=== PATIENT | male | born 1950 | race Hispanic/Latino ===

== ENCOUNTER 2017-02-11 02:12 | Inpatient (IN) | payer MEDICARE, OTHER ==
[2017-02-11 02:16] VITALS: BMI 32.5
--- NOTE | 2017-02-11 02:23 | ED PDOC ---
Arrival/HPI - General Chief Complaint: Seizure Time Seen by Provider: 02/11/17 02:17 Historian: Patient, EMS - History of Present Illness Narrative History of Present Illness (Text): 02/11/17 02:22 Dayton Henning is a 66 year old male, whose past medical history includes seizure disorder, PTSD, and depression, who presents to the Emergency department status post seizure. As per EMS, patient had 2 tonic-clonic seizures prior to arrival, 1 at home and 1 en route to the hospital. Patient was given 10 mg of Versed in the field. Limited HPI and ROS due to patient's somnolence. Time/Duration: Other (tonight) Symptom Onset: Sudden Activities at Onset: Rest, Light Context: Home Past Medical History - Provider Review Nursing Documentation Reviewed: Yes - Infectious Disease Hx of Infectious Diseases: None - Tetanus Immunization Tetanus Immunization: Unknown - Past Medical History Past Medical History: No Previous - Cardiac Hx Cardiac Disorders: No Hx Hypertension: No - Pulmonary Hx Respiratory Disorders: No Hx Chronic Obstructive Pulmonary Disease (COPD): Yes Hx Tuberculosis: No - Neurological Hx Neurological Disorder: Yes (neuropathy) HX Cerebrovascular Accident: No Hx Seizures: Yes (30 yrs ago) - HEENT Hx HEENT Disorder: No - Renal Hx Renal Disorder: No - Endocrine/Metabolic Hx Endocrine Disorders: No - Hematological/Oncological Hx Cancer: No Hx Hepatitis C: Yes - Integumentary Hx Dermatological Disorder: No Other/Comment: red raised rash ble - Musculoskeletal/Rheumatological Hx Falls: No - Gastrointestinal Hx Gastrointestinal Disorders: No - Genitourinary/Gynecological Hx Genitourinary Disorders: No Hx Sexually Transmitted Diseases: No - Psychiatric Hx Anxiety: Yes Hx Depression: Yes Hx Post Traumatic Stress Disorder: Yes Hx Substance Use: Yes - Past Surgical History Past Surgical History: No Previous - Surgical History Other/Comment: back surgery - Anesthesia Hx Anesthesia: No Hx Anesthesia Reactions: No Hx Malignant Hyperthermia: No - Suicidal Assessment Feels Threatened In Home Enviroment: No Family/Social History - Physician Review Nursing Documentation Reviewed: Yes Family/Social History: No Known Family HX Smoking Status: Former Smoker Hx Alcohol Use: No Hx Substance Use: Yes Allergies/Home Meds Allergies/Adverse Reactions: Allergies cat dander Allergy (Verified 02/11/17 02:16) ANAPHYLAXIS Home Medications: Home Meds Medication Instructions Recorded Confirmed Diazepam [Valium] 10 mg PO QID 02/11/17 02/11/17 LORazepam [Ativan] 2 mg PO QID 02/11/17 02/11/17 Review of Systems - Review of Systems Systems not reviewed;Unavailable: Altered Mental Status Neurological: Seizure Physical Exam Vital Signs Reviewed: Yes Vital Signs Temp Pulse Resp BP Pulse Ox 02/11/17 06:24 97.7 F 86 20 156/78 H 02/11/17 06:00 90 13 124/85 95 02/11/17 05:45 95 H 18 130/79 95 02/11/17 05:25 90 13 129/80 96 02/11/17 05:05 95 H 18 151/78 H 95 02/11/17 04:25 97 H 18 124/77 97 02/11/17 03:10 97 H 12 122/70 98 02/11/17 02:20 97.6 F 118 H 28 H 135/72 100 Temperature: Afebrile Blood Pressure: Normal Pulse: Regular Respiratory Rate: Normal Appearance: Positive for: Well-Appearing, Non-Toxic, Comfortable Pain Distress: None Mental Status: Positive for: other (Somnolent but arousable) - Systems Exam Head: Present: Atraumatic, Normocephalic Pupils: Present: PERRL Extroacular Muscles: Present: EOMI Conjunctiva: Present: Normal Mouth: Present: Moist Mucous Membranes Neck: Present: Normal Range of Motion Respiratory/Chest: Present: Clear to Auscultation, Good Air Exchange. No: Respiratory Distress, Accessory Muscle Use Cardiovascular: Present: Regular Rate and Rhythm, Normal S1, S2. No: Murmurs Abdomen: Present: Normal Bowel Sounds. No: Tenderness, Distention, Peritoneal Signs Back: Present: Normal Inspection Upper Extremity: Present: Normal Inspection. No: Cyanosis, Edema Lower Extremity: Present: Normal Inspection. No: Edema Neurological: Present: GCS=15, CN II-XII Intact Skin: Present: Warm, Dry, Normal Color. No: Rashes Psychiatric: Present: Other (Somnolent but arousable) Medical Decision Making ED Course and Treatment: 02/11/17 02:23 Impression: 66 year old male brought in by EMS s/p 2 seizures at home prior to arrival. Plan: -- CT Head w/o contrast -- EKG -- CXR -- Labs, cardiac enzymes, alcohol level -- Reassess and disposition Prior Visits: Notes and results from previous visits were reviewed. Progress Notes: Reviewed EKG, sinus tachycardia at [address] bpm. Non-specific ST/T wave changes. 02/11/17 04:07 Reviewed radiology, Chest X-ray shows no active disease. CT Head shows: - No acute findings seen within the brain. - See above for remaining findings. 02/11/17 05:20 Reviewed labs, WBC:29, lactate: 3.3. 02/11/17 05:24 Case discussed with medical esthetician microeconomics professor, who is aware and agrees with plan. Case discussed with Dr. Tabor, who is aware and agrees with plan. Accepts pt in to hospitalist service. Pt will be admitted to Telemetry for seizure disorder and sepsis. - Lab Interpretations Lab Results: 02/11/17 02:57 02/11/17 03:28 Lab Results 02/11/17 05:08: pO2 69 H, VBG pH 7.35, VBG pCO2 41.0, VBG HCO3 22.6, VBG Total CO2 23.9, VBG O2 Sat (Calc) 94.3 H, VBG Base Excess -2.9 L, VBG Potassium 3.9, Sodium 139.0, Chloride 110.0 H, Glucose 186 H, Lactate 3.3 H, FiO2 21.0, Venous Blood Potassium 3.9 02/11/17 04:03: Serum Osmolality 311 H, Total Creatine Kinase 151 02/11/17 03:28: Sodium 142, Chloride 104, Potassium 4.4, Carbon Dioxide 16 L, Anion Gap 26 H, BUN 14, Creatinine 1.2, Est GFR ( Amer) > 60, Est GFR ( Non-Af Amer) > 60, Random Glucose 215 H, Calcium 10.0, Total Bilirubin 0.6, AST 42, ALT 25, Alkaline Phosphatase 58, Lactate Dehydrogenase 808 H, Total Creatine Kinase 136, Troponin I < 0.01, Total Protein 7.9, Albumin 4.3, Globulin 3.6, Albumin/Globulin Ratio 1.2 02/11/17 02:57: WBC 29.4 H* D, RBC 5.34, Hgb 17.4, Hct 52.9 H, MCV 99.1, MCH 32.6, MCHC 32.9, RDW 13.3, Plt Count 278, MPV 12.0 H, Neutrophils % (Manual) 51 , Lymphocytes % (Manual) 36 H, Monocytes % (Manual) 12 H, Eosinophils % (Manual ) 1, Platelet Evaluation Normal, PT 11.7, INR 1.08, APTT 26.7 I have reviewed the lab results: Yes - RAD Interpretation Narrative RAD Interpretations (Text): , Chest X-ray shows no active disease. CT Head shows: LIMITATIONS: Exam is somewhat limited by mild streak/motion artifact. BRAIN: Diffuse, age-related cortical atrophy and ventriculomegaly. No significant acute abnormality identified. No acute hemorrhage seen within the brain. No acute extra-axial fluid collections visualized. No evidence of significant mass effect within the brain. VENTRICLES: See above. BONES/JOINTS: No acute fractures or other acute bony abnormality noted. SOFT TISSUES: No acute abnormality of the visualized soft tissues is seen. VASCULATURE: Atherosclerotic calcification. SINUSES: Visualized paranasal sinuses appear clear. MASTOID AIR CELLS: Mastoid air cells appear clear. IMPRESSION: - No acute findings seen within the brain. - See above for remaining findings. Radiology Orders: 02/11/17 02:52 HEAD W/O CONTRAST [CT] Stat 02/11/17 02:53 CHEST PORTABLE [RAD] Stat Manager Of Corporate: ED Physician, Radiologist - EKG Interpretation Interpreted by ED Physician: Yes Type: 12 lead EKG - Medication Orders Current Medication Orders: Enoxaparin Sodium (Lovenox) 40 mg SC DAILY JOSELYN PRN Reason: Protocol Last Admin: 02/11/17 09:46 Dose: 40 MG Protocol for PTT Monitoring Document 02/11/17 09:46 RT (Rec: 02/11/17 09:46 RT [id number]) Protocol Protocol for PTT Monitoring Following clinical pathway protocol (regime/therapy) Subcutaneous Administrations Document 02/11/17 09:46 RT (Rec: 02/11/17 09:46 RT [id number]) Charges for Administration # of Subcutaneous Administrations 1 Sodium Chloride (Sodium Chloride 0.9%) 1,000 mls @ 125 mls/hr IV .Q8H JOSELYN Last Admin: 02/11/17 17:24 Dose: Fosphenytoin Sodium 100 mg/ (Dextrose) 52 mls @ 200 mls/hr IV Q8 JOSELYN Last Admin: 02/11/17 14:40 Dose: 200 MLS/HR eMAR Start Stop Document 02/11/17 14:40 RT (Rec: 02/11/17 17:23 RT [id number]) Intravenous Solution Start Date 02/11/17 Start Time 14:40 End Date 02/11/17 End time 15:35 Total Infusion Time 55 Azithromycin (Zithromax 500mg In Ns) 250 mls @ 167 mls/hr IVPB DAILY JOSELYN PRN Reason: Protocol Last Admin: 02/11/17 13:12 Dose: 167 MLS/HR eMAR Start Stop Document 02/11/17 13:12 RT (Rec: 02/11/17 13:13 RT [id number]) Intravenous Solution Start Date 02/11/17 Start Time 13:13 End Date 02/11/17 End time 14:30 Total Infusion Time 77 Ceftriaxone Sodium (Rocephin 1 Gram Ivpb) 100 mls @ 100 mls/hr IVPB DAILY JOSELYN PRN Reason: Protocol Last Admin: 02/11/17 13:45 Dose: Lorazepam (Ativan) 1 mg IVP Q4 PRN; Protocol PRN Reason: Seizure activity Naproxen (Anaprox Ds) 550 mg PO Q12 PRN PRN Reason: Pain, moderate (4-7) Last Admin: 02/11/17 13:13 Dose: 550 MG Pantoprazole Sodium (Protonix Inj) 40 mg IVP DAILY [facility] Last Admin: 02/11/17 09:45 Dose: 40 MG IVP Administration Document 02/11/17 09:45 RT (Rec: 02/11/17 09:46 RT [id number]) Charges for Administration # of IVP Administrations 1 Discontinued Medications Ceftriaxone Sodium (Rocephin 2 Gm Ivpb) 100 mls @ 100 mls/hr IVPB STAT STA PRN Reason: Protocol Stop: 02/11/17 06:33 Last Admin: 02/11/17 08:07 Dose: 100 MLS/HR eMAR Start Stop Document 02/11/17 08:07 RT (Rec: 02/11/17 08:07 RT [id number]) Intravenous Solution Start Date 02/11/17 Start Time 08:07 End Date 02/11/17 End time 09:00 Total Infusion Time 53 Vancomycin HCl (Vancomycin 1gm) 250 mls @ 167 mls/hr IVPB STAT STA PRN Reason: Protocol Stop: 02/11/17 07:04 Last Admin: 02/11/17 06:25 Dose: 167 MLS/HR eMAR Start Stop Document 02/11/17 06:25 SB (Rec: 02/11/17 06:25 SB [id number]) Intravenous Solution Start Date 02/11/17 Start Time 06:25 End Date 02/11/17 Fosphenytoin Sodium 1,000 mg/ (Sodium Chloride) 70 mls @ 100 mls/hr IV STAT STA Stop: 02/11/17 07:08 Last Admin: 02/11/17 09:45 Dose: Sodium Chloride (Sodium Chloride 0.9%) 100 mls @ 125 mls/hr IV .Q48M JOSELYN Naproxen (Anaprox Ds) 550 mg PO Q6 PRN PRN Reason: Pain, moderate (4-7) - Scribe Statement The provider has reviewed the documentation as recorded by the Johnna Ruvalcaba Provider Attestation: All medical record entries made by the Jeremiasibaurelio were at my direction and personally dictated by me. I have reviewed the chart and agree that the record accurately reflects my personal performance of the history, physical exam, medical decision making, and the department course for this patient. I have also personally directed, reviewed, and agree with the discharge instructions and disposition. Disposition/Present on Arrival - Present on Arrival Any Indicators Present on Arrival: No History of DVT/PE: No History of Uncontrolled Diabetes: No Urinary Catheter: No History of Decub. Ulcer: No History Surgical Site Infection Following: None - Disposition Have Diagnosis and Disposition been Completed?: Yes Diagnosis: Seizure disorder, Sepsis Disposition: HOSPITALIZED Disposition Time: 05:32 Patient Plan: Admission Patient Problems: Current Active Problems Problem Status Diagnosed Seizure disorder Acute Sepsis Acute Condition: STABLE
[2017-02-11 03:26] LABS: INR 1.08 (0.93-1.08); PARTIAL THROMBOPLASTIN TIME 26.7 Seconds (23.7-30.8)
[2017-02-11 03:59] LABS: HEMATOCRIT 52.9 % (42.0-52.0); MEAN CELL VOLUME 99.1 fL (80.0-105.0); MEAN CORPUSCULAR HEMOGLOBIN 32.6 pg (25.0-35.0); MEAN CORPUSCULAR HGB CONC 32.9 g/dl (31.0-37.0); PLATELET COUNT 278 10^3/uL (120.0-450.0); RED CELL DISTRIBUTION WIDTH 13.3 % (11.5-14.5)
--- NOTE | 2017-02-11 04:09 | CT ---
EXAM: CT Head Without Intravenous Contrast. CLINICAL HISTORY: 66 years old, male; Signs and symptoms; Syncope and collapse; Additional info: Seizure TECHNIQUE: Axial computed tomography images of the head/brain without intravenous contrast. This CT exam was performed using one or more of the following dose reduction techniques: automated exposure control, adjustment of the mA and/or kV according to patient size, and/or use of iterative reconstruction technique. EXAM DATE/TIME: 02/11/2017 2:52 AM COMPARISON: Prior head CT of 03/06/2016 FINDINGS: LIMITATIONS: Exam is somewhat limited by mild streak/motion artifact. BRAIN: Diffuse, age-related cortical atrophy and ventriculomegaly. No significant acute abnormality identified. No acute hemorrhage seen within the brain. No acute extra-axial fluid collections visualized. No evidence of significant mass effect within the brain. VENTRICLES: See above. BONES/JOINTS: No acute fractures or other acute bony abnormality noted. SOFT TISSUES: No acute abnormality of the visualized soft tissues is seen. VASCULATURE: Atherosclerotic calcification. SINUSES: Visualized paranasal sinuses appear clear. MASTOID AIR CELLS: Mastoid air cells appear clear. IMPRESSION: - No acute findings seen within the brain. - See above for remaining findings.
[2017-02-11 04:37] LABS: ALB/GLOB RATIO 1.2 (1.1-1.8); ALKALINE PHOSPHATASE 58 U/L (38-133); ALT/SGPT 25 U/L (7-56); AST/SGOT 42 U/L (15-59); BILIRUBIN,TOTAL 0.6 mg/dL (0.2-1.3); BLOOD UREA NITROGEN 14 mg/dL (7-21); CARBON DIOXIDE 16 mmol/L (21-33); CHLORIDE 104 mmol/L (95-110); GFR AFRICAN-AMERICAN > 60; GLUCOSE,RANDOM 215 mg/dL (70-110); POTASSIUM 4.4 mmol/L (3.6-5.0); SODIUM 142 mmol/L (132-148); TOTAL PROTEIN 7.9 g/dL (5.8-8.3)
[2017-02-11 05:09] LABS: TROPONIN I < 0.01 ng/mL
[2017-02-11 05:14] LABS: VENOUS BLOOD GAS BASE EXCESS -2.9 mmol/L (0.0-2.0); VENOUS BLOOD PH 7.35 (7.32-7.43)
[2017-02-11 05:14] LABS: EOSINOPHIL 1 % (0.0-3.0); NEUTROPHIL 51 % (50.0-70.0); PLATELET ESTIMATE NORMAL (NORMAL)
[2017-02-11] MEDS ORDERED: Vancomycin 1gm in NS 250ml 250 ML IVPB STA (05:35)
--- NOTE | 2017-02-11 05:47 | CP.PCM.HP ---
<NohemiDariela - Last Filed: 02/11/17 07:04> History of Present Illness - History of Present Illness History of Present Illness: PGY-[address] Steve Tabor H&P 66 year old male, PMHx Hep C, seizure disorder, PTSD, and bipolar, was brought in by EMS status post seizure. As per EMS, patient had 2 tonic-clonic seizures prior to arrival, 1 at home and 1 en route to the hospital. Patient was given 10 mg of Versed in the field. In the ED: Limited HPI and ROS due to patient's somnolence. VS 118. RR 28. 135/ 72 Temp normal Leukocytosis at 29.4. Lactate 3.3. (+) anion gap - EKG, sinus tachycardia at [address] bpm[address] Non-specific ST/T wave changes. - CT Head shows: No acute findings seen within the brain. Diffuse, age-related cortical atrophy and ventriculomegaly PMH: COPD Neuropathy Hep C Skin rash seizure disorder (Prior seizure 30 years ago, not on meds) Substance abuse PTSD, psychosis, bipolar disorder/schizoaffective Hx AMA, Hx non-compliance Hx (+) Aspergiluus fumigatus Ab (Aug 2015) Hx lung Abscess, cavitary lesion lung PSH: Back surgery FH: denies SH: Former tobacco; Denies alcohol. (+) illicit drug use All: cat dander - anaphlaxis Med: Diazepam [Valium] 10 mg PO QID LORazepam [Ativan] 2 mg PO QID PMD = ?? Present on Admission - Present on Admission Any Indicators Present on Admission: No Past Patient History - Infectious Disease Hx of Infectious Diseases: None - Tetanus Immunizations Tetanus Immunization: Unknown - Past Social History Smoking Status: Former Smoker - CARDIAC Hx Cardiac Disorders: No Hx Hypertension: No - PULMONARY Hx Respiratory Disorders: No Hx Chronic Obstructive Pulmonary Disease (COPD): Yes Hx Tuberculosis: No - NEUROLOGICAL Hx Neurological Disorder: Yes (neuropathy) HX Cerebrovascular Accident: No Hx Seizures: Yes (30 yrs ago) - HEENT Hx HEENT Problems: No - RENAL Hx Chronic Kidney Disease: No - ENDOCRINE/METABOLIC Hx Endocrine Disorders: No - HEMATOLOGICAL/ONCOLOGICAL Hx Cancer: No Hx Hepatitis C: Yes - INTEGUMENTARY Hx Dermatological Problems: No Other/Comment: red raised rash ble - MUSCULOSKELETAL/RHEUMATOLOGICAL Hx Falls: No - GASTROINTESTINAL Hx Gastrointestinal Disorders: No - GENITOURINARY/GYNECOLOGICAL Hx Genitourinary Disorders: No Hx Sexually Transmitted Disorders: No - PSYCHIATRIC Hx Anxiety: Yes Hx Depression: Yes Hx Post Traumatic Stress Disorder: Yes Hx Substance Use: Yes - SURGICAL HISTORY Other/Comment: back surgery - ANESTHESIA Hx Anesthesia: No Hx Anesthesia Reactions: No Hx Malignant Hyperthermia: No Meds Allergies/Adverse Reactions: Allergies Allergy/AdvReac Type Severity Reaction Status Date / Time cat dander Allergy ANAPHYLAXIS Verified 02/11/17 02:16 Physical Exam - Constitutional Additional comments: Post-ictal. confused. easily awaken but minimally communicative - Head Exam Head Exam: ATRAUMATIC, NORMOCEPHALIC - Eye Exam Eye Exam: PERRL. absent: Scleral icterus - ENT Exam ENT Exam: Mucous Membranes Moist Additional comments: bit mercer on lower lip and L lateral tongue - Neck Exam Neck exam: Negative for: Meningismus Additional comments: no JVD - Respiratory Exam Respiratory Exam: Decreased Breath Sounds (all lung dangelo), Clear to Auscultation Bilateral. absent: Rales, Rhonchi, Wheezes - Cardiovascular Exam Cardiovascular Exam: REGULAR RHYTHM, +S1, +S2. absent: Systolic Murmur - GI/Abdominal Exam GI & Abdominal Exam: Normal Bowel Sounds, Soft. absent: Distended, Firm, Guarding, Rigid, Tenderness (no grimace) - Extremities Exam Extremities exam: Positive for: normal capillary refill, pedal pulses present. Negative for: pedal edema - Psychiatric Exam Psychiatric exam: Flat Affect - Skin Skin Exam: Dry, Warm Results - Vital Signs Recent Vital Signs: Last Vital Signs Temp 97.6 F 02/11/17 02:20 Pulse 118 H 02/11/17 02:20 Resp 28 H 02/11/17 02:20 BP 135/72 02/11/17 02:20 Pulse Ox 100 02/11/17 02:20 - Labs Result Diagrams: 02/11/17 02:57 02/11/17 03:28 Labs: Laboratory Results - last 24 hr 02/11/17 02/11/17 02/11/17 02:57 03:28 05:08 WBC 29.4 H* D RBC 5.34 Hgb 17.4 Hct 52.9 H MCV 99.1 MCH 32.6 MCHC 32.9 RDW 13.3 Plt Count 278 MPV 12.0 H Neutrophils % (Manual) 51 Lymphocytes % (Manual) 36 H Monocytes % (Manual) 12 H Eosinophils % (Manual) 1 Platelet Evaluation Normal PT 11.7 INR 1.08 APTT 26.7 pO2 69 H VBG pH 7.35 VBG pCO2 41.0 VBG HCO3 22.6 VBG Total CO2 23.9 VBG O2 Sat (Calc) 94.3 H VBG Base Excess -2.9 L VBG Potassium 3.9 Glucose 186 H Lactate 3.3 H FiO2 21.0 Sodium 142 139.0 Potassium 4.4 Chloride 104 110.0 H Carbon Dioxide 16 L Anion Gap 26 H BUN 14 Creatinine 1.2 Est GFR ( Amer) > 60 Est GFR (Non-Af Amer) > 60 Random Glucose 215 H Calcium 10.0 Total Bilirubin 0.6 AST 42 ALT 25 Alkaline Phosphatase 58 Lactate Dehydrogenase 808 H Total Creatine Kinase 136 Troponin I < 0.01 Total Protein 7.9 Albumin 4.3 Globulin 3.6 Albumin/Globulin Ratio 1.2 Venous Blood Potassium 3.9 Assessment & Plan - Assessment and Plan (Free Text) Plan: 66 year old male, PMHx Hep C, Aspergilus lung cavity, seizure disorder not on med, PTSD, and bipolar, was brought in by EMS status post seizure. Seizure, provoked vs unprovoked - Neural check, aspiration/fall precaution - neuro consult - NPO for now - Phosphenytoin q8 - Ativan for break through - pending serum alcohol, ammonia, drug screen Sepsis - 1 dose of vanco and ceftriaxone at ED - H 118, RR 28. WBC 29.4. Lactate 3.3. - ID consult High Anion Gap Metabolic Acidosis - MUDPILE workup - Serum Osm; Pending urine ketone; No UZMA; LFT ok - (+) lactic acid; (+) Sepsis Lactate dehydrogenase elevated - likely from muscle - r/o cardiac cause - trend enzymes - LFT/Renal wnl - pending CK - NS @ 125 Prophylasix - lovenox, protonix S/R/D/w Dr. Tabor - Date & Time Date: 02/11/17 Time: 06:57 <Lida Tabor - Last Filed: 02/11/17 20:39> Results - Vital Signs Recent Vital Signs: Last Vital Signs Temp 97.3 F L 02/11/17 18:00 Pulse 86 02/11/17 18:00 Resp 20 03/22/17 18:00 BP 120/64 02/11/17 18:00 Pulse Ox 95 02/11/17 06:00 - Labs Result Diagrams: 02/11/17 07:30 02/11/17 07:45 Labs: Laboratory Results - last 24 hr 02/11/17 02/11/17 02/11/17 06:17 07:30 07:45 WBC 15.1 H D RBC 4.93 Hgb 16.5 Hct 45.5 MCV 92.3 MCH 33.5 MCHC 36.3 RDW 13.1 Plt Count 222 MPV 11.0 Gran % 78.6 H Lymph % (Auto) 15.6 L Callahan % (Auto) 5.6 Eos % (Auto) 0.1 L Baso % (Auto) 0.1 Gran # 11.88 H Lymph # 2.4 Callahan # 0.9 H Eos # 0.0 Baso # 0.02 pO2 60 H VBG pH 7.35 VBG pCO2 42.0 VBG HCO3 23.2 VBG Total CO2 24.5 VBG O2 Sat (Calc) 90.9 H VBG Base Excess -2.4 L VBG Potassium 3.7 Sodium 140.0 142 Chloride 111.0 H 107 Glucose 133 H Lactate 2.1 FiO2 21.0 Potassium 3.7 Carbon Dioxide 22 Anion Gap 17 BUN 16 Creatinine 1.1 Est GFR ( Amer) > 60 Est GFR (Non-Af Amer) > 60 Random Glucose 128 H Calcium 9.9 Ammonia < 9 L Lactate Dehydrogenase 864 H Total Creatine Kinase 468 H CK-MB (CK-2) 4.5 H CK-MB (CK-2) % Cancelled Troponin I 0.01 Procalcitonin < 0.05 L Venous Blood Potassium 3.7 Urine Color Yellow Urine Appearance Slight-cloudy Urine pH 6.0 Ur Specific [place] >= 1.030 Urine Protein 100 H Urine Glucose (UA) Negative Urine Ketones Negative Urine Blood Small H Urine Nitrate Negative Urine Bilirubin Negative Urine Urobilinogen 0.2 Ur Leukocyte Esterase Negative Urine RBC 0 - 2 Urine WBC 0 - 2 Ur Epithelial Cells 0 - 2 Urine Osmolality 696 H Salicylates < 1 L Alcohol, Quantitative < 10 02/11/17 16:30 WBC RBC Hgb Hct MCV MCH MCHC RDW Plt Count MPV Gran % Lymph % (Auto) Callahan % (Auto) Eos % (Auto) Baso % (Auto) Gran # Lymph # Callahan # Eos # Baso # pO2 VBG pH VBG pCO2 VBG HCO3 VBG Total CO2 VBG O2 Sat (Calc) VBG Base Excess VBG Potassium Sodium Chloride Glucose Lactate FiO2 Potassium Carbon Dioxide Anion Gap BUN Creatinine Est GFR ( Amer) Est GFR (Non-Af Amer) Random Glucose Calcium Ammonia Lactate Dehydrogenase 844 H Total Creatine Kinase 1401 H CK-MB (CK-2) 11.1 H CK-MB (CK-2) % 0.8 L Troponin I 0.02 D Procalcitonin Venous Blood Potassium Urine Color Urine Appearance Urine pH Ur Specific [place] Urine Protein Urine Glucose (UA) Urine Ketones Urine Blood Urine Nitrate Urine Bilirubin Urine Urobilinogen Ur Leukocyte Esterase Urine RBC Urine WBC Ur Epithelial Cells Urine Osmolality Salicylates Alcohol, Quantitative Attending/Attestation - Attestation I have personally seen and examined this patient.: Yes I have fully participated in the care of the patient.: Yes I have reviewed all pertinent clinical information: Yes Notes (Text): 02/11/17 20:38 Patient was examined when he was in the ER . Agree with history, physical examination ,assessment and plan.
[2017-02-11 06:04] LABS: WHITE BLOOD COUNT 29.4 10^3/ul (4.5-11.0)
[2017-02-11] MEDS ORDERED: Fosphenytoin 1,000 MG in Sodium Chloride 0.9% 50 ML IV STA (06:27)
[2017-02-11 06:31] LABS: URINE BILIRUBIN NEGATIVE (NEGATIVE); URINE BLOOD SMALL (NEGATIVE); URINE GLUCOSE (UA) NEGATIVE (NEGATIVE); URINE KETONE NEGATIVE (NEGATIVE); URINE LEUKOCYTE ESTERASE NEGATIVE Leu/uL (NEGATIVE); URINE PROTEIN 100 mg/dL (<30 mg/dL); URINE UROBILINOGEN 0.2 E.U./dL (<1 E.U./dL)
[2017-02-11 06:43] LABS: URINE APPEARANCE SLIGHT-CLOUDY (CLEAR); URINE COLOR YELLOW (YELLOW)
[2017-02-11 07:01] LABS: URINE EPITHELIAL CELLS 0 - 2 /hpf (0-5); URINE RBC 0 - 2 /hpf (0-2); URINE WBC 0 - 2 /hpf (0-6)
[2017-02-11] MEDS ORDERED: Sodium Chloride 0.9% 100 ML IV SCH (07:30)
--- NOTE | 2017-02-11 07:47 | RAD ---
HISTORY: seizure COMPARISON: No prior. FINDINGS: LUNGS: Bibasilar atelectasis and or developing infiltrates left greater than right questionable small bilateral effusions. PLEURA: No pneumothorax apparent. CARDIOVASCULAR: The heart size is upper limits of normal/ borderline enlarged Normal. OSSEOUS STRUCTURES: No significant abnormalities. VISUALIZED UPPER ABDOMEN: Normal. OTHER FINDINGS: None. IMPRESSION: Bibasilar atelectasis and or developing infiltrates left greater than right questionable small bilateral effusions.
[2017-02-11 07:57] LABS: VENOUS BLOOD GAS BASE EXCESS -2.4 mmol/L (0.0-2.0); VENOUS BLOOD PH 7.35 (7.32-7.43)
[2017-02-11] MEDS: Sodium Chloride 0.9% 1,000 ML IV SCH ×3 (08:16→22:31)
[2017-02-11 08:34] LABS: ADD MANUAL DIFF? NO
[2017-02-11 08:38] LABS: BASO # 0.02 K/mm3 (0.0-2.0); BASO % 0.1 % (0.0-3.0); EOS % 0.1 % (1.5-5.0); GRAN # 11.88 (1.4-6.5); GRAN % 78.6 % (50.0-68.0); HEMATOCRIT 45.5 % (42.0-52.0); LYMPH # 2.4 (1.2-3.4); LYMPH % 15.6 % (22.0-35.0); MEAN CELL VOLUME 92.3 fL (80.0-105.0); MEAN CORPUSCULAR HEMOGLOBIN 33.5 pg (25.0-35.0); MEAN CORPUSCULAR HGB CONC 36.3 g/dl (31.0-37.0); MONO # 0.9 (0.1-0.6); MONO % 5.6 % (1.0-6.0); PLATELET COUNT 222 10^3/uL (120.0-450.0); RED CELL DISTRIBUTION WIDTH 13.1 % (11.5-14.5); WHITE BLOOD COUNT 15.1 10^3/ul (4.5-11.0)
[2017-02-11 08:52] LABS: BLOOD UREA NITROGEN 16 mg/dL (7-21); CALCIUM 9.9 mg/dL (8.4-10.5); CARBON DIOXIDE 22 mmol/L (21-33); CHLORIDE 107 mmol/L (98-107); GFR AFRICAN-AMERICAN > 60; GLUCOSE,RANDOM 128 mg/dL (70-110); POTASSIUM 3.7 mmol/L (3.6-5.0); SODIUM 142 mmol/L (132-148)
[2017-02-11 08:56] LABS: TROPONIN I 0.01 ng/mL
[2017-02-11] MEDS: Enoxaparin 40 mg Syringe SC SCH (09:46)
[2017-02-11] MEDS ORDERED: Naproxen 550 mg Tab PO PRN ×2 (09:55→10:03)
[2017-02-11] MEDS ORDERED: cefTRIAXone 1 gm 100 ML IVPB SCH (10:00)
--- NOTE | 2017-02-11 10:45 | CON ---
DATE: 02/11/2017 REASON FOR CONSULTATION: Seizure. HISTORY OF PRESENT ILLNESS: The patient is a 66-year-old male with history of seizure disorder, post traumatic stress disorder and bipolar disorder, was brought to the ER after he apparently had a seizu re. The patient apparently had 2 seizures; one at home and one en route to the hospital. The patien t was given Versed in the field. History is mainly from the chart. The patient is noncommunicative at the moment. However, as per our nursing staff, the patient was talking earlier normally. REVIEW OF SYSTEMS: Denies any headache, unable to obtain all other systems because of patient is not communicating. PAST MEDICAL HISTORY: Includes COPD, neuropathy, hepatitis C, skin rash, seizure disorder. The last seizure was 30 years ago, not on meds. Substance abuse, posttraumatic stress disorder, psychosis, b ipolar disorder. PAST SURGICAL HISTORY: Includes back surgery. MEDICATIONS: At home included Ativan, Valium, trazodone, Seroquel, Protonix, Singulair, Claritin, Ne urontin, Advair and Flonase. ALLERGIES: CAT DANDER. FAMILY HISTORY: Unknown. PHYSICAL EXAMINATION: GENERAL: The patient is a middle-aged male lying on the bed, in no acute distress. VITAL SIGNS: His blood pressure is 124/85, heart rate is 90 per minute, breathing at a rate of 16 pe r minute and his temperature is 97.6 degrees Fahrenheit. HEENT: Head is normocephalic, atraumatic. NECK: Supple. There are no carotid bruits. LUNGS: Clear. CARDIOVASCULAR: S1, S2 audible. No murmurs. ABDOMEN: Soft, nontender, bowel sounds present. NEUROLOGIC EXAMINATION: MENTAL STATUS: The patient is awake, alert, looking at the examiner and is not speaking. He follows simple commands. CRANIAL NERVES: Pupils are 4 mm bilaterally, reactive to light. Visual dangelo are full. Extraocula r movements are intact. There is no facial asymmetry. He is moving all 4 extremities symmetrically. Plantars downgoing bilaterally. LABORATORY DATA: Reviewed, shows a WBC of 29.4 on admission and it is 15.1 now, hemoglobin of 16.5, hematocrit 45.5 and platelets of 222. His INR is 1.08. Sodium is 142, potassium 3.7, chloride of 10 7, carbon dioxide 22, BUN of 16, creatinine 1.1, and glucose of 128. His ammonia level is less than 9. He had a CT scan of the head done which showed no acute findings. IMPRESSION: 1. Status post seizure with history of seizure disorder. 2. Altered mental status with history of bipolar disorder. RECOMMENDATIONS: 1. The patient to have MRI of the brain without contrast. 2. The patient also to have an electroencephalogram. 3. The patient was given fosphenytoin apparently in the Emergency Room. The patient to be continued on fosphenytoin 100 mg every 8 hours. The patient to have a serum Dilantin level. 4. If no acute etiology is seen for the patient's mental status, the patient will require a psychiat ellen evaluation as well. 5. Please continue other treatment and supportive care. Thank you for the opportunity to participate in the care of this patient. Jesus Snow MD cc: [id number] TT: 02/11/2017 10:44:10 Confirmation # [id number] Dictation # [id number] mn
--- NOTE | 2017-02-11 12:21 | RAD ---
PROCEDURE: Radiographs of the Lumbar Spine. HISTORY: s/p seizure, atraumatic injury COMPARISON: No prior. FINDINGS: BONES: Prominent con cavities to the superior endplates at L3 and L1 and to a lesser extent T12 are present. These findings are less pronounced on the frontal view. Prominent Schmorl's node indentations and/or mild mid vertebral body compression injuries- age unknown are some considerations. No loss of height greater than 30 percent is suggested. Marginal osteophytes blend with facet osseous hypertrophic changes on the left at L2-3 to a lesser extent on the left at L3-4 and bilaterally at L5-S1 (right greater than left). Inferior right marginal osteophytes are also suggested at T9-10 DISC SPACES: Posterior L4-5 and L5-S1 and to a lesser extent L3-4. Space narrowing OTHER FINDINGS: Straightening of the normal normal lumbar lordosis is suggested IMPRESSION: Nonspecific L3 and L1 superior endplate increased concave orientations -Schmorl's node indentations versus mild compression deformities are considerations- age unknown Pondylosis and degenerative disc disease. Facet arthrosis.
--- NOTE | 2017-02-11 12:34 | MRI ---
PROCEDURE: MRI BRAIN WITHOUT CONTRAST HISTORY: seizure COMPARISON: CT head 04/13/[address] head 03/06/2016 TECHNIQUE: Multiplanar, multisequence MR images of the brain were obtained without intravenous contrast enhancement. FINDINGS: HEMORRHAGE: None DWI: No evidence of an acute or early subacute infarction. BRAIN PARENCHYMA: No mass effect or edema. No gross atrophy or chronic microvascular ischemic changes. VENTRICLES: Unremarkable. No hydrocephalus. CRANIUM: Unremarkable. ORBITS: Grossly unremarkable. PARANASAL SINUSES/MASTOIDS: Clear VASCULAR SYSTEM: Skull base flow voids intact. OTHER FINDINGS: A developmental variant -a high right jugular bulb -is apparent this appearance is unchanged dating back to CT head image 03/06/2016 IMPRESSION: Unremarkable non contrast enhanced MRI of the brain.
[2017-02-11] MEDS: Azithromycin 500MG/NS 250ml 250 ML IVPB SCH (13:12)
--- NOTE | 2017-02-11 13:50 | CP.PCM.CON ---
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 He was briefly post-ictal after the episodes but is now awake and alert. Apparently the first seizure happened as he was going to sleep at home and apparently his witnessed it. He only remembers waking up in the hospital. He was apparently well prior to the episode. He denies fever or chills , no nausea or vomiting, no chest pain, no SOB, no cough or rhinorrhea, no sore throat, no body aches, no dysphagia, no abdominal pain, no diarrhea, no dysuria or hematuria, no penile discharge, no blurring of vision, no skin rash. In the ED, he was noted to have leukocytosis and Infectious Diseases consult is requested to further evaluate and manage. Review of Systems - Review of Systems All systems: reviewed and no additional remarkable complaints except (as per HPI ) Past Patient History - Infectious Disease Hx of Infectious Diseases: None - Tetanus Immunizations Tetanus Immunization: Unknown - Past Medical History & Family History Past Medical History?: Yes Past Family History: Reviewed and not pertinent - Past Social History Smoking Status: Former Smoker Alcohol: Occasional Drugs: Other (polysubstance abuse) - CARDIAC Hx Cardiac Disorders: No Hx Hypertension: No - PULMONARY Hx Respiratory Disorders: No Hx Chronic Obstructive Pulmonary Disease (COPD): Yes Hx Tuberculosis: No - NEUROLOGICAL Hx Neurological Disorder: Yes (neuropathy) HX Cerebrovascular Accident: No Hx Seizures: Yes (30 yrs ago) - HEENT Hx HEENT Problems: No - RENAL Hx Chronic Kidney Disease: No - ENDOCRINE/METABOLIC Hx Endocrine Disorders: No - HEMATOLOGICAL/ONCOLOGICAL Hx Cancer: No Hx Hepatitis C: Yes - INTEGUMENTARY Hx Dermatological Problems: No Other/Comment: red raised rash ble - MUSCULOSKELETAL/RHEUMATOLOGICAL Hx Falls: No - GASTROINTESTINAL Hx Gastrointestinal Disorders: No - GENITOURINARY/GYNECOLOGICAL Hx Genitourinary Disorders: No Hx Sexually Transmitted Disorders: No - PSYCHIATRIC Hx Anxiety: Yes Hx Depression: Yes Hx Post Traumatic Stress Disorder: Yes Hx Substance Use: Yes - SURGICAL HISTORY Other/Comment: back surgery - ANESTHESIA Hx Anesthesia: No Hx Anesthesia Reactions: No Hx Malignant Hyperthermia: No Meds Allergies/Adverse Reactions: Allergies Allergy/AdvReac Type Severity Reaction Status Date / Time cat danilo Allergy ANAPHYLAXIS Verified 02/11/17 02:16 - Medications Medications: Current Medications Enoxaparin Sodium (Lovenox) 40 mg SC DAILY JOSELYN PRN Reason: Protocol Fosphenytoin Sodium 180 mg/ (Dextrose) 53.6 mls @ 200 mls/hr IV Q8 JOSELYN Sodium Chloride (Sodium Chloride 0.9%) 1,000 mls @ 125 mls/hr IV .Q8H JOSELYN Lorazepam (Ativan) 1 mg IVP Q4 PRN; Protocol PRN Reason: Seizure activity Pantoprazole Sodium (Protonix Inj) 40 mg IVP DAILY JOSELYN Physical Exam - Constitutional Appears: Non-toxic, No Acute Distress - Head Exam Head Exam: NORMAL INSPECTION - ENT Exam ENT Exam: Mucous Membranes Moist - Neck Exam Neck exam: Negative for: Lymphadenopathy, Meningismus - Respiratory Exam Respiratory Exam: Decreased Breath Sounds - Cardiovascular Exam Cardiovascular Exam: +S1, +S2 - GI/Abdominal Exam GI & Abdominal Exam: absent: Tenderness Results - Vital Signs Recent Vital Signs: Last Vital Signs Temp 97.6 F 02/11/17 02:20 Pulse 90 02/11/17 06:00 Resp 13 02/11/17 06:00 BP 124/85 02/11/17 06:00 Pulse Ox 95 02/11/17 06:00 - Labs Result Diagrams: 02/11/17 07:30 02/11/17 07:45 Labs: Laboratory Results - last 24 hr 02/11/17 06:17 Urine Color Yellow Urine Appearance Slight-cloudy Urine pH 6.0 Ur Specific [place] >= 1.030 Urine Protein 100 H Urine Glucose (UA) Negative Urine Ketones Negative Urine Blood Small H Urine Nitrate Negative Urine Bilirubin Negative Urine Urobilinogen 0.2 Ur Leukocyte Esterase Negative Urine RBC 0 - 2 Urine WBC 0 - 2 Ur Epithelial Cells 0 - 2 Assessment & Plan - Assessment and Plan (Free Text) Plan: Assessment Systemic Inflammatory Response Syndrome (leukocytosis and tachycardia), consider secondary to acute stressful event after seizure episodes, R/O community-acquired pneumonia post-traumatic stress disorder bipolar disorder seizure disorder (but has not had a seizure in apparently 30 years) Hepatitis C history of substance abuse 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
[2017-02-11] MEDS ORDERED: WATER IV SCH (14:00)
[2017-02-11] MEDS ORDERED: DEXTROSE 5% IV SCH (14:00)
[2017-02-11] MEDS ORDERED: FOSPHENYTOIN IV SCH (14:00)
[2017-02-11] MEDS: Fosphenytoin 100 MG in Dextrose 5% In Water 50 ML IV SCH ×2 (14:40→22:31)
[2017-02-11 17:34] LABS: TROPONIN I 0.02 ng/mL
--- NOTE | 2017-02-11 20:02 | CARD ---
APPROVED REPORT EKG Measurement Heart [id number] <Conclusion> Sinus tachycardia Otherwise normal ECG
[2017-02-12] MEDS: Fosphenytoin 100 MG in Dextrose 5% In Water 50 ML IV SCH (06:12)
[2017-02-12] MEDS: Sodium Chloride 0.9% 1,000 ML IV SCH ×3 (06:54→23:30)
[2017-02-12 06:55] LABS: ADD MANUAL DIFF? NO
[2017-02-12 07:09] LABS: BASO # 0.02 K/mm3 (0.0-2.0); BASO % 0.2 % (0.0-3.0); EOS # 0.2 (0.0-0.7); EOS % 2.1 % (1.5-5.0); GRAN # 4.79 (1.4-6.5); GRAN % 58.7 % (50.0-68.0); HEMATOCRIT 40.7 % (42.0-52.0); LYMPH # 2.4 (1.2-3.4); LYMPH % 29.7 % (22.0-35.0); MEAN CELL VOLUME 93.8 fL (80.0-105.0); MEAN CORPUSCULAR HEMOGLOBIN 32.3 pg (25.0-35.0); MEAN CORPUSCULAR HGB CONC 34.4 g/dl (31.0-37.0); MEAN PLATELET VOLUME 11.1 fl (7.0-11.0); MONO # 0.8 (0.1-0.6); MONO % 9.3 % (1.0-6.0); PLATELET COUNT 175 10^3/uL (120.0-450.0); RED CELL DISTRIBUTION WIDTH 13.3 % (11.5-14.5); WHITE BLOOD COUNT 8.2 10^3/ul (4.5-11.0)
[2017-02-12 07:13] LABS: ALB/GLOB RATIO 1.2 (1.1-1.8); ALKALINE PHOSPHATASE 46 U/L (38-133); ALT/SGPT 28 U/L (7-56); AST/SGOT 71 U/L (15-59); BLOOD UREA NITROGEN 16 mg/dL (7-21); CALCIUM 8.4 mg/dL (8.4-10.5); CARBON DIOXIDE 21 mmol/L (21-33); CHLORIDE 110 mmol/L (98-107); GFR AFRICAN-AMERICAN > 60; GLUCOSE,RANDOM 116 mg/dL (70-110); POTASSIUM 3.9 mmol/L (3.6-5.0); SODIUM 141 mmol/L (132-148); TOTAL PROTEIN 6.2 g/dL (5.8-8.3)
--- NOTE | 2017-02-12 10:33 | PN ---
DATE: 02/12/2017 SUBJECTIVE: The patient is lying on the bed, in no acute distress. He denies having any headache or dizziness. PHYSICAL EXAMINATION: VITAL SIGNS: His blood pressure is 137/80, heart rate is 73 per minute, breathing at a rate of 16 pe r minute, temperature is 98.3 degrees Fahrenheit. HEENT: Head is normocephalic, atraumatic. NECK: Supple. There are no carotid bruits. LUNGS: Clear. CARDIOVASCULAR: S1, S2 audible with no murmurs. ABDOMEN: Soft, nontender. Bowel sounds present. NEUROLOGIC EXAMINATION: MENTAL STATUS: The patient is awake, alert, oriented to time, place, person. Speech is fluent. Nam ing and repetition is normal. Memory and cognition are intact. CRANIAL NERVES: Pupils are 3 mm bilaterally, reactive to light. Visual dangelo are full. Extraocula r movements are intact. There is no facial asymmetry. Palate is upgoing bilaterally and tongue is m idline. MOTOR: Tone is normal. Power is 5/5 bilaterally in all extremities. Plantars downgoing bilaterally . CEREBELLAR: [id number] shows no dysmetria. GAIT: Deferred at the moment. LABORATORIES: Reviewed. Serum Dilantin is less than 3. IMPRESSION: 1. Status post seizure with history of seizure disorder. 2. History of bipolar disorder. RECOMMENDATIONS: 1. The patient had MRI of the brain, which is unremarkable. 2. The patient also had an electroencephalogram, which is normal. 3. For some reason, patient's Dilantin level is low even though he was given fosphenytoin. 4. The patient's fosphenytoin is to be discontinued and patient to be started on Keppra 500 mg twice a day. 5. Please continue other treatment and supportive care and possibly, patient may be discharged if re chiquita stable with outpatient followup. Thank you for the opportunity to participate in the care of this patient. Jesus Snow MD cc: 142 TT: 02/12/2017 10:32:25 Confirmation # [id number] Dictation # [id number]
[2017-02-12] MEDS: Enoxaparin 40 mg Syringe SC SCH (11:23)
[2017-02-12] MEDS: Azithromycin 500MG/NS 250ml 250 ML IVPB SCH (11:24)
--- NOTE | 2017-02-12 11:29 | EEG ---
DATE: 02/12/2017 INTRODUCTION: This is a digitally recorded EEG monitoring using standard EEG montages. BACKGROUND RHYTHM: The EEG shows a background activity of 10-11 Hz alpha activity in parietooccipita l region. The EEG activity is bilaterally symmetrical and synchronous. There is attenuation of the background activity on eye opening. A small amount of myogenic artifact noticed in this EEG recordin g. ABNORMAL POTENTIALS: No spikes, sharp waves or focal slowing was seen. PHOTIC STIMULATION AND HYPERVENTILATION: Photic stimulation did not reveal any abnormality. Hyperve ntilation was not performed. IMPRESSION: Normal EEG. No epileptiform activity seen in this EEG recording. Jesus Snow MD cc: [id number] TT: 02/12/2017 11:28:46 Confirmation # [id number] Dictation # [id number]
[2017-02-12] MEDS: Oxycodone/Acetaminophen 10/325 mg Tab PO PRN ×2 (11:46→17:45)
--- NOTE | 2017-02-12 14:03 | CP.PCM.PN ---
Subjective - Date & Time of Evaluation Date of Evaluation: 02/12/17 Time of Evaluation: 09:20 - Subjective Subjective: No fevers overnight, no cough, no SOB, no nausea, no headache. Objective - Vital Signs/Intake and Output Vital Signs (last 24 hours): Temp Pulse Resp BP Pulse Ox 97.9 F 80 20 124/69 97 02/12/17 12:00 02/12/17 12:00 02/12/17 12:00 02/12/17 12:00 02/12/17 06:00 Intake and Output: 02/12/17 02/12/17 06:59 18:59 Intake Total 2020 Output Total 700 Balance 1320 - Medications Medications: Current Medications Enoxaparin Sodium (Lovenox) 40 mg SC DAILY JOSELYN PRN Reason: Protocol Last Admin: 02/12/17 11:23 Dose: 40 mg Sodium Chloride (Sodium Chloride 0.9%) 1,000 mls @ 125 mls/hr IV .Q8H [facility] Last Admin: 02/12/17 06:54 Dose: 125 mls/hr Levetiracetam (Keppra) 500 mg PO BID [facility] Last Admin: 02/12/17 11:23 Dose: 500 mg Lorazepam (Ativan) 1 mg IVP Q4 PRN; Protocol PRN Reason: Seizure activity Last Admin: 02/12/17 11:47 Dose: 1 mg Naproxen (Anaprox Ds) 550 mg PO Q12 PRN PRN Reason: Pain, moderate (4-7) Last Admin: 02/11/17 13:13 Dose: 550 mg Oxycodone/Acetaminophen (Percocet 10/325 Mg Tab) 1 tab PO Q6H PRN PRN Reason: Pain, severe (8-10) Last Admin: 02/12/17 11:46 Dose: 1 tab Pantoprazole Sodium (Protonix Inj) 40 mg IVP DAILY [facility] Last Admin: 02/12/17 11:24 Dose: 40 mg - Labs Labs: 02/12/17 06:00 02/12/17 06:00 PT 11.7 Seconds (9.9-11.8) 02/11/17 02:57 INR 1.08 (0.93-1.08) 02/11/17 02:57 APTT 26.7 Seconds (23.7-30.8) 02/11/17 02:57 - Constitutional Appears: Non-toxic, No Acute Distress - Head Exam Head Exam: NORMAL INSPECTION - ENT Exam ENT Exam: Mucous Membranes Moist - Neck Exam Neck Exam: absent: Lymphadenopathy, Meningismus - Respiratory Exam Respiratory Exam: Decreased Breath Sounds. absent: Rales, Rhonchi - Cardiovascular Exam Cardiovascular Exam: +S1, +S2 - GI/Abdominal Exam GI & Abdominal Exam: Soft. 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 Dennison ([id number])
--- NOTE | 2017-02-12 14:36 | RAD ---
HISTORY: rule out pneumonia COMPARISON: 02/11/2017. TECHNIQUE: Chest PA and lateral FINDINGS: LUNGS: Improved aeration of the lungs. No active pulmonary disease. PLEURA: No significant pleural effusion identified. No pneumothorax apparent. CARDIOVASCULAR: Normal. OSSEOUS STRUCTURES: No significant abnormalities. VISUALIZED UPPER ABDOMEN: Normal. OTHER FINDINGS: None. IMPRESSION: No active disease. Resolved infiltrate/atelectasis at the lung bases.
--- NOTE | 2017-02-12 18:19 | CP.PCM.PN ---
<Aimee Pringle - Last Filed: 02/13/17 06:19> Subjective - Date & Time of Evaluation Date of Evaluation: 02/13/17 Time of Evaluation: 08:15 - Subjective Subjective: Patient seen and examined at bedside. Patient complains of back pain which kept him up at night. Patient also has not ambulated since admission. Overnight patient received one dose of ativan for his anxiety. Denies headache, fever, chills, shortness of breath, chest pain, nausea, vomiting, urinary or fecal incontinence. Objective - Vital Signs/Intake and Output Vital Signs (last 24 hours): Temp Pulse Resp BP Pulse Ox 97.9 F 80 20 124/69 97 02/12/17 12:00 02/12/17 14:00 02/12/17 12:00 02/12/17 12:00 02/12/17 06:00 Intake and Output: 02/12/17 02/12/17 06:59 18:59 Intake Total 2020 660 Output Total 700 250 Balance 1320 410 - Medications Medications: Current Medications Enoxaparin Sodium (Lovenox) 40 mg SC DAILY JOSELYN PRN Reason: Protocol Last Admin: 02/12/17 11:23 Dose: 40 mg Sodium Chloride (Sodium Chloride 0.9%) 1,000 mls @ 125 mls/hr IV .Q8H [facility] Last Admin: 02/12/17 17:50 Dose: 125 mls/hr Levetiracetam (Keppra) 500 mg PO BID [facility] Last Admin: 02/12/17 17:46 Dose: 500 mg Lorazepam (Ativan) 1 mg IVP Q4 PRN; Protocol PRN Reason: Seizure activity Last Admin: 02/12/17 17:46 Dose: 1 mg Naproxen (Anaprox Ds) 550 mg PO Q12 PRN PRN Reason: Pain, moderate (4-7) Last Admin: 02/11/17 13:13 Dose: 550 mg Oxycodone/Acetaminophen (Percocet 10/325 Mg Tab) 1 tab PO Q6H PRN PRN Reason: Pain, severe (8-10) Last Admin: 02/12/17 17:45 Dose: 1 tab Pantoprazole Sodium (Protonix Inj) 40 mg IVP DAILY [facility] Last Admin: 02/12/17 11:24 Dose: 40 mg - Labs Labs: 02/12/17 06:00 03/23/17 06:00 PT 11.7 Seconds (9.9-11.8) 02/11/17 02:57 INR 1.08 (0.93-1.08) 02/11/17 02:57 APTT 26.7 Seconds (23.7-30.8) 02/11/17 02:57 - Constitutional Appears: Non-toxic, No Acute Distress - Head Exam Head Exam: ATRAUMATIC, NORMOCEPHALIC - Eye Exam Eye Exam: PERRL - ENT Exam ENT Exam: Mucous Membranes Moist Additional comments: bite mercer on lower lip and L lateral tongue - Neck Exam Neck Exam: Normal Inspection - Respiratory Exam Respiratory Exam: Clear to Ausculation Bilateral, NORMAL BREATHING PATTERN. absent: Wheezes, Respiratory Distress - Cardiovascular Exam Cardiovascular Exam: REGULAR RHYTHM, RRR, +S1, +S2. absent: Murmur - GI/Abdominal Exam GI & Abdominal Exam: Soft, Normal Bowel Sounds. absent: Tenderness - Extremities Exam Extremities Exam: Full ROM, Normal Capillary Refill, Normal Inspection. absent : Joint Swelling, Pedal Edema - Back Exam Back Exam: paraspinal tenderness - Neurological Exam Neurological Exam: Alert, Awake, Oriented x3 - Psychiatric Exam Psychiatric exam: Normal Affect, Normal Mood - Skin Skin Exam: Dry, Warm Assessment and Plan - Assessment and Plan (Free Text) Assessment: 66 year old male, PMHx Hep C, Aspergilus lung cavity, seizure disorder not on med, PTSD, and bipolar, was brought in by EMS status post seizure. Seizure, provoked vs unprovoked - Neural check, aspiration/fall precaution - Follow neuro recommendations - Regular diet - Keppra 500mg BID - Ativan prn - Pending physical therapy eval Back pain -Lumbar x ray showed L3 and L1 superior endplate increased concave orientations Schmorl's node vs mild compression deformities-age unknow -Percocet for pain -Pending PT evaluation Sepsis - Improved. Afebrile, no leukocytosis, procal negative - Follow ID recommendations - Discontinue antibiotics Lactate dehydrogenase elevated - likely from muscle - Troponin negative x3 - LFT/Renal wnl - CK 1401 - NS @ 125 Prophylactic measures -Lovenox for DVT ppx -Protonix for GI ppx <Juma FLORES,Rashawn - Last Filed: 02/14/17 14:26> Objective - Vital Signs/Intake and Output Vital Signs (last 24 hours): Temp Pulse Resp BP Pulse Ox 98.6 F 89 20 118/85 98 02/13/17 12:00 02/13/17 12:00 02/13/17 12:00 02/13/17 12:00 02/13/17 06:00 - Labs Labs: 02/13/17 08:00 02/13/17 08:00 PT 11.7 Seconds (9.9-11.8) 02/11/17 02:57 INR 1.08 (0.93-1.08) 02/11/17 02:57 APTT 26.7 Seconds (23.7-30.8) 02/11/17 02:57 Attending/Attestation - Attestation I have personally seen and examined this patient.: Yes I have fully participated in the care of the patient.: Yes I have reviewed all pertinent clinical information, including history, physical exam and plan: Yes Notes (Text): Patient was seen and examined with medical clinic manager .Agreed with resident assessment and plan. Patient is feeling better, still c/o back pain, his WBC has come back to normal.Procalcitonin was normal, IV antibiotics were discontinued. Patient was evaluated by physical therapy prior to discharge. He has been started on Keppra 500 mg POBID and will folow up with PCP and Neurology. Management plan was discussed in detail with patient Education was provided.
[2017-02-12] MEDS: Budesonide 0.5 mg/2 ml Inhal Susp UD IH SCH (19:25)
[2017-02-12] MEDS: Arformoterol 15 mcg/2 ml Inh Sol IH SCH (19:25)
[2017-02-12] MEDS ORDERED: Fluticasone-Salmeterol 250-50mcg Diskus IH SCH (22:00)
[2017-02-13] MEDS: Oxycodone/Acetaminophen 10/325 mg Tab PO PRN ×2 (01:17→10:15)
[2017-02-13] MEDS: Sodium Chloride 0.9% 1,000 ML IV SCH (01:57)
[2017-02-13 06:53] VITALS: O2SAT 98
[2017-02-13] MEDS ORDERED: Pantoprazole 40 mg EC Tab PO SCH (07:30)
[2017-02-13 08:11] LABS: ADD MANUAL DIFF? NO
[2017-02-13] MEDS: Arformoterol 15 mcg/2 ml Inh Sol IH SCH (08:14)
[2017-02-13] MEDS: Budesonide 0.5 mg/2 ml Inhal Susp UD IH SCH (08:15)
[2017-02-13 08:19] LABS: BASO # 0.02 K/mm3 (0.0-2.0); BASO % 0.3 % (0.0-3.0); EOS # 0.4 (0.0-0.7); EOS % 4.7 % (1.5-5.0); GRAN # 3.62 (1.4-6.5); GRAN % 48.5 % (50.0-68.0); HEMATOCRIT 37.8 % (42.0-52.0); LYMPH # 2.9 (1.2-3.4); LYMPH % 38.9 % (22.0-35.0); MEAN CORPUSCULAR HEMOGLOBIN 32.2 pg (25.0-35.0); MEAN CORPUSCULAR HGB CONC 33.9 g/dl (31.0-37.0); MEAN PLATELET VOLUME 11.1 fl (7.0-11.0); MONO # 0.6 (0.1-0.6); MONO % 7.6 % (1.0-6.0); PLATELET COUNT 163 10^3/uL (120.0-450.0); RED CELL DISTRIBUTION WIDTH 13.3 % (11.5-14.5); WHITE BLOOD COUNT 7.5 10^3/ul (4.5-11.0)
[2017-02-13 08:28] LABS: BLOOD UREA NITROGEN 16 mg/dL (7-21); CALCIUM 8.3 mg/dL (8.4-10.5); CARBON DIOXIDE 23 mmol/L (21-33); CHLORIDE 111 mmol/L (98-107); GFR AFRICAN-AMERICAN > 60; GLUCOSE,RANDOM 106 mg/dL (70-110); POTASSIUM 4.3 mmol/L (3.6-5.0); SODIUM 141 mmol/L (132-148)
--- NOTE | 2017-02-13 09:34 | CP.PCM.PN ---
Subjective - Date & Time of Evaluation Date of Evaluation: 02/13/17 Time of Evaluation: 08:10 - Subjective Subjective: Comfortable, afebrile, not in distress. Objective - Vital Signs/Intake and Output Vital Signs (last 24 hours): Temp Pulse Resp BP Pulse Ox 97.7 F 63 78 H 104/60 98 02/13/17 06:00 02/13/17 06:00 02/13/17 06:00 02/13/17 06:00 02/13/17 06:00 Intake and Output: 02/13/17 02/13/17 06:59 18:59 Intake Total 3042 Output Total 550 Balance 2492 - Medications Medications: Current Medications Arformoterol Tartrate (Brovana) 15 mcg IH [id number] [facility] Last Admin: 02/12/17 19:25 Dose: 15 mcg Budesonide (Pulmicort Respules) 0.5 mg IH [id number] [facility] Last Admin: 02/12/17 19:25 Dose: 0.5 mg Enoxaparin Sodium (Lovenox) 40 mg SC DAILY [facility] PRN Reason: Protocol Last Admin: 02/12/17 11:23 Dose: 40 mg Sodium Chloride (Sodium Chloride 0.9%) 1,000 mls @ 125 mls/hr IV .Q8H [facility] Last Admin: 02/13/17 01:57 Dose: 125 mls/hr Levetiracetam (Keppra) 500 mg PO BID [facility] Last Admin: 02/12/17 17:46 Dose: 500 mg Lorazepam (Ativan) 1 mg IVP Q4 PRN; Protocol PRN Reason: Seizure activity Last Admin: 02/12/17 17:46 Dose: 1 mg Naproxen (Anaprox Ds) 550 mg PO Q12 PRN PRN Reason: Pain, moderate (4-7) Last Admin: 02/11/17 13:13 Dose: 550 mg Oxycodone/Acetaminophen (Percocet 10/325 Mg Tab) 1 tab PO Q6H PRN PRN Reason: Pain, severe (8-10) Last Admin: 02/13/17 01:17 Dose: 1 tab Pantoprazole Sodium (Protonix Ec Tab) 40 mg PO ACB [facility] - Labs Labs: 02/12/17 06:00 02/12/17 06:00 PT 11.7 Seconds (9.9-11.8) 02/11/17 02:57 INR 1.08 (0.93-1.08) 02/11/17 02:57 APTT 26.7 Seconds (23.7-30.8) 02/11/17 02:57 - Constitutional Appears: Non-toxic, No Acute Distress - Head Exam Head Exam: NORMAL INSPECTION - Respiratory Exam Respiratory Exam: Decreased Breath Sounds - Cardiovascular Exam Cardiovascular Exam: +S1, +S2 - GI/Abdominal Exam GI & Abdominal Exam: Soft. 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 Dennison (hospitalist- in-charge)
[2017-02-13] MEDS: Enoxaparin 40 mg Syringe SC SCH (09:59)
[2017-02-13 13:49] VITALS: BP 118/85; PULSE 89; RESP 20; TEMP 98.6
--- NOTE | 2017-02-13 15:50 | CP.PCM.DIS ---
<PinoJosedavi - Last Filed: 02/15/17 04:06> Provider - Provider Date of Admission: 02/11/17 05:37 Attending physician: Rashawn Dennison MD Primary care physician: Dr. Flores Consults: Neurology: Dr. Snow ID: Dr. Jo Time Spent in preparation of Discharge (in minutes): 40 Diagnosis - Discharge Diagnosis (1) Seizure disorder Status: Resolved (2) Sepsis Status: Resolved (3) Bipolar II disorder Status: Chronic (4) Post traumatic stress disorder (PTSD) Status: Chronic (5) Nicotine abuse Status: Resolved (6) Elevated serum lactate dehydrogenase (LDH) Status: Resolved Comment: secondary to seizure (7) Metabolic acidosis, increased anion gap Status: Resolved Hospital Course - Lab Results Lab Results: Micro Results 02/11/17 06:17 Urine Urine Culture - Final No Growth (<1,000 CFU/ML) Most Recent Lab Values WBC 7.5 10^3/ul (4.5-11.0) 02/13/17 08:00 RBC 3.98 10^6/uL (3.5-6.1) 02/13/17 08:00 Hgb 12.8 gm/dL (14.0-18.0) L 02/13/17 08:00 Hct 37.8 % (42.0-52.0) L 02/13/17 08:00 MCV 95.0 fL (80.0-105.0) 02/13/17 08:00 MCH 32.2 pg (25.0-35.0) 02/13/17 08:00 MCHC 33.9 g/dl (31.0-37.0) 02/13/17 08:00 RDW 13.3 % (11.5-14.5) 02/13/17 08:00 Plt Count 163 10^3/uL (120.0-450.0) 02/13/17 08:00 MPV 11.1 fl (7.0-11.0) H 02/13/17 08:00 Gran % 48.5 % (50.0-68.0) L 02/13/17 08:00 Lymph % (Auto) 38.9 % (22.0-35.0) H 02/13/17 08:00 Worth % (Auto) 7.6 % (1.0-6.0) H 02/13/17 08:00 Eos % (Auto) 4.7 % (1.5-5.0) 02/13/17 08:00 Baso % (Auto) 0.3 % (0.0-3.0) 02/13/17 08:00 Gran # 3.62 (1.4-6.5) 02/13/17 08:00 Lymph # 2.9 (1.2-3.4) 02/13/17 08:00 Worth # 0.6 (0.1-0.6) 02/13/17 08:00 Eos # 0.4 (0.0-0.7) 02/13/17 08:00 Baso # 0.02 K/mm3 (0.0-2.0) 02/13/17 08:00 Neutrophils % (Manual) 51 % (50.0-70.0) 02/11/17 02:57 Lymphocytes % (Manual) 36 % (22.0-35.0) H 02/11/17 02:57 Monocytes % (Manual) 12 % (1.0-6.0) H 02/11/17 02:57 Eosinophils % (Manual) 1 % (0.0-3.0) 02/11/17 02:57 Platelet Evaluation Normal (NORMAL) 02/11/17 02:57 PT 11.7 Seconds (9.9-11.8) 02/11/17 02:57 INR 1.08 (0.93-1.08) 02/11/17 02:57 APTT 26.7 Seconds (23.7-30.8) 02/11/17 02:57 pO2 60 mm/Hg (30-55) H 02/11/17 07:30 VBG pH 7.35 (7.32-7.43) 02/11/17 07:30 VBG pCO2 42.0 (40-60) 02/11/17 07:30 VBG HCO3 23.2 mmol/l (21-28) 02/11/17 07:30 VBG Total CO2 24.5 mmol.L (22-28) 02/11/17 07:30 VBG O2 Sat (Calc) 90.9 % (40-65) H 02/11/17 07:30 VBG Base Excess -2.4 mmol/L (0.0-2.0) L 02/11/17 07:30 VBG Potassium 3.7 mmol/L (3.6-5.2) 02/11/17 07:30 Sodium 140.0 mmol/L (132-148) 02/11/17 07:30 Chloride 111.0 mmol/L (98-107) H 02/11/17 07:30 Glucose 133 mg/dl (75-110) H 02/11/17 07:30 Lactate 2.1 mmol/L (0.7-2.1) 02/11/17 07:30 FiO2 21.0 % 02/11/17 07:30 Sodium 141 mmol/L (132-148) 02/13/17 08:00 Potassium 4.3 mmol/L (3.6-5.0) 02/13/17 08:00 Chloride 111 mmol/L (98-107) H 02/13/17 08:00 Carbon Dioxide 23 mmol/L (21-33) 02/13/17 08:00 Anion Gap 11 (10-20) 02/13/17 08:00 BUN 16 mg/dL (7-21) 02/13/17 08:00 Creatinine 1.2 mg/dL (0.5-1.4) 02/13/17 08:00 Est GFR ( Amer) > 60 02/13/17 08:00 Est GFR (Non-Af Amer) > 60 02/13/17 08:00 POC Glucose (mg/dL) 191 mg/dL (65-110) H 02/11/17 02:31 Random Glucose 106 mg/dL (70-110) 02/13/17 08:00 Serum Osmolality 311 mosm/kg (271-296) H 02/11/17 04:03 Calcium 8.3 mg/dL (8.4-10.5) L 02/13/17 08:00 Total Bilirubin 1.0 mg/dL (0.2-1.3) 02/12/17 06:00 AST 71 U/L (15-59) H 02/12/17 06:00 ALT 28 U/L (7-56) 02/12/17 06:00 Alkaline Phosphatase 46 U/L (38-133) 02/12/17 06:00 Ammonia < 9 umol/L (9-33) L 02/11/17 07:30 Lactate Dehydrogenase 844 U/L (333-699) H 02/11/17 16:30 Total Creatine Kinase 1401 U/L (35-230) H 02/11/17 16:30 CK-MB (CK-2) 11.1 ng/mL (0.0-3.6) H 02/11/17 16:30 CK-MB (CK-2) % 0.8 % (2.5-3.0) L 02/11/17 16:30 Troponin I 0.02 ng/mL D 02/11/17 16:30 Total Protein 6.2 g/dL (5.8-8.3) 02/12/17 06:00 Albumin 3.3 g/dL (3.0-4.8) 02/12/17 06:00 Globulin 2.8 gm/dL 02/12/17 06:00 Albumin/Globulin Ratio 1.2 (1.1-1.8) 02/12/17 06:00 Procalcitonin 0.07 NG/ML (0.19-0.49) L 02/12/17 06:00 Venous Blood Potassium 3.7 mmol/L (3.6-5.2) 02/11/17 07:30 Urine Color Yellow (YELLOW) 02/11/17 06:17 Urine Appearance Slight-cloudy (CLEAR) 02/11/17 06:17 Urine pH 6.0 (4.7-8.0) 02/11/17 06:17 Ur Specific [place] >= 1.030 (1.005-1.035) 02/11/17 06:17 Urine Protein 100 mg/dL (<30 mg/dL) H 02/11/17 06:17 Urine Glucose (UA) Negative mg/dL (NEGATIVE) 02/11/17 06:17 Urine Ketones Negative mg/dL (NEGATIVE) 02/11/17 06:17 Urine Blood Small (NEGATIVE) H 02/11/17 06:17 Urine Nitrate Negative (NEGATIVE) 02/11/17 06:17 Urine Bilirubin Negative (NEGATIVE) 02/11/17 06:17 Urine Urobilinogen 0.2 E.U./dL (<1 E.U./dL) 02/11/17 06:17 Ur Leukocyte Esterase Negative Airam/uL (NEGATIVE) 02/11/17 06:17 Urine RBC 0 - 2 /hpf (0-2) 02/11/17 06:17 Urine WBC 0 - 2 /hpf (0-6) 02/11/17 06:17 Ur Epithelial Cells 0 - 2 /hpf (0-5) 02/11/17 06:17 Urine Osmolality 696 mosm/kg (50-645) H 02/11/17 06:17 Salicylates < 1 mg/dL (2.0-20.0) L 02/11/17 07:45 Phenytoin < 3 ug/mL (10-20) L 02/12/17 06:00 Alcohol, Quantitative < 10 mg/dL (0-10) 02/11/17 07:45 - Hospital Course Hospital Course: 66 year old male, PMHx Hep C, seizure disorder, PTSD, and bipolar, was brought in by EMS status post seizure. As per EMS, patient had 2 tonic-clonic seizures prior to arrival, 1 at home and 1 en route to the hospital. Patient was given 10 mg of Versed in the field. Patient reports the last thing he remembers is lying in bed with his about to fall asleep. Patient admits to loss of consciousness, tongue biting, but does not have urinary or fecal incontinence after seizures. Patient admits to chewing 4 nicotine gum last night before going to sleep. Denies headache, fever, chills, shortness of breath, chest pain , nausea, vomiting, urinary or fecal incontinence. In the ED, patient's VS 118. RR 28. 135/72 Temp normal Leukocytosis at 29.4. Lactate 3.3. (+) anion gap. EKG, sinus tachycardia at [address] bpm[address] Non-specific ST/T wave changes. CT Head shows: No acute findings seen within the brain. Diffuse, age-related cortical atrophy and ventriculomegaly ( see full report). Upon admission, patient was placed on phosphenytoin, ativan, IVF, DVT and GI ppx. Infectious disease and neurology were consulted. Patient complained of severe back pain, lumbar x-ray showed L3 and L1 superior endplate increased concave orientations Schmorl's node vs mild compression deformities- age unknow, Percocet given for pain. As patient's hospital course progressed, leukocytosis and lactate levels improved along with CK. Troponin were negative x3. MRI brain and EEG were unremarkable, patient was started on keppra 500mg BID per neurology. Patient's procal was normal, antibiotics were discontinued by ID. PT evaluated and recommended patient to start outpatient physical therapy after discharged [place] [facility] The discharge plan and follow ups were extensively discussed with the patient who verbalized with complete understanding. At this time, after discussion of all issues, the patient was deemed medically fit for discharge. - Date & Time of H&P Date of H&P: 02/11/17 Time of H&P: 05:46 Discharge Exam - Head Exam Head Exam: NORMAL INSPECTION - Eye Exam Eye Exam: Normal appearance, PERRL - ENT Exam ENT Exam: Mucous Membranes Moist Additional comments: bite mercer on lower lip and L lateral tongue - Neck Exam Neck exam: Normal Inspection - Respiratory Exam Respiratory Exam: Clear to PA & Lateral, NORMAL BREATHING PATTERN, UNREMARKABLE. absent: Respiratory Distress - Cardiovascular Exam Cardiovascular Exam: REGULAR RHYTHM, RRR, +S1, +S2 - GI/Abdominal Exam GI & Abdominal Exam: Normal Bowel Sounds, Soft. absent: Bruit, Hernia, Rigid - Extremities Exam Extremities exam: normal capillary refill, normal inspection, pedal pulses present - Back Exam Back exam: paraspinal tenderness - Neurological Exam Neurological exam: Alert, CN II-XII Intact, Oriented x3 - Psychiatric Exam Psychiatric exam: Normal Affect, Normal Mood - Skin Skin Exam: Dry, Intact, Warm Discharge Plan - Discharge Medications Prescriptions: levETIRAcetam [Keppra] 500 mg PO BID #60 tab Azithromycin [Z-Dakota] 250 mg PO DAILY #6 tab - Follow Up Plan Condition: STABLE Disposition: HOME/ ROUTINE Instructions: Recurrent Seizures in Adults (DC) Additional Instructions: -Patient was instructed to follow up at [facility] [place] or PMD of choice within 1 week of hospital discharge for medication adjustments -Patient will follow up with his neurology after hospital discharge -Educated patient on nicotine abuse -Will take medications as prescribed -Patient was recommended to continue physical therapy as outpatient -Go to the nearest ED if symptoms return or worsen Referrals: Josesito Pickard MD [Staff Provider] - <Juma FLORES,Rashawn - Last Filed: 02/15/17 14:09> Provider - Provider Date of Admission: 02/11/17 05:37 Attending physician: Rashawn Dennison MD Hospital Course - Lab Results Lab Results: Micro Results 02/11/17 06:17 Urine Urine Culture - Final No Growth (<1,000 CFU/ML) Most Recent Lab Values WBC 7.5 10^3/ul (4.5-11.0) 02/13/17 08:00 RBC 3.98 10^6/uL (3.5-6.1) 02/13/17 08:00 Hgb 12.8 gm/dL (14.0-18.0) L 02/13/17 08:00 Hct 37.8 % (42.0-52.0) L 02/13/17 08:00 MCV 95.0 fL (80.0-105.0) 02/13/17 08:00 MCH 32.2 pg (25.0-35.0) 02/13/17 08:00 MCHC 33.9 g/dl (31.0-37.0) 02/13/17 08:00 RDW 13.3 % (11.5-14.5) 02/13/17 08:00 Plt Count 163 10^3/uL (120.0-450.0) 02/13/17 08:00 MPV 11.1 fl (7.0-11.0) H 02/13/17 08:00 Gran % 48.5 % (50.0-68.0) L 02/13/17 08:00 Lymph % (Auto) 38.9 % (22.0-35.0) H 02/13/17 08:00 Worth % (Auto) 7.6 % (1.0-6.0) H 02/13/17 08:00 Eos % (Auto) 4.7 % (1.5-5.0) 02/13/17 08:00 Baso % (Auto) 0.3 % (0.0-3.0) 02/13/17 08:00 Gran # 3.62 (1.4-6.5) 02/13/17 08:00 Lymph # 2.9 (1.2-3.4) 02/13/17 08:00 Worth # 0.6 (0.1-0.6) 02/13/17 08:00 Eos # 0.4 (0.0-0.7) 02/13/17 08:00 Baso # 0.02 K/mm3 (0.0-2.0) 02/13/17 08:00 Neutrophils % (Manual) 51 % (50.0-70.0) 02/11/17 02:57 Lymphocytes % (Manual) 36 % (22.0-35.0) H 02/11/17 02:57 Monocytes % (Manual) 12 % (1.0-6.0) H 02/11/17 02:57 Eosinophils % (Manual) 1 % (0.0-3.0) 02/11/17 02:57 Platelet Evaluation Normal (NORMAL) 02/11/17 02:57 PT 11.7 Seconds (9.9-11.8) 02/11/17 02:57 INR 1.08 (0.93-1.08) 02/11/17 02:57 APTT 26.7 Seconds (23.7-30.8) 02/11/17 02:57 pO2 60 mm/Hg (30-55) H 02/11/17 07:30 VBG pH 7.35 (7.32-7.43) 02/11/17 07:30 VBG pCO2 42.0 (40-60) 02/11/17 07:30 VBG HCO3 23.2 mmol/l (21-28) 02/11/17 07:30 VBG Total CO2 24.5 mmol.L (22-28) 02/11/17 07:30 VBG O2 Sat (Calc) 90.9 % (40-65) H 02/11/17 07:30 VBG Base Excess -2.4 mmol/L (0.0-2.0) L 02/11/17 07:30 VBG Potassium 3.7 mmol/L (3.6-5.2) 02/11/17 07:30 Sodium 140.0 mmol/L (132-148) 02/11/17 07:30 Chloride 111.0 mmol/L (98-107) H 02/11/17 07:30 Glucose 133 mg/dl (75-110) H 02/11/17 07:30 Lactate 2.1 mmol/L (0.7-2.1) 02/11/17 07:30 FiO2 21.0 % 02/11/17 07:30 Sodium 141 mmol/L (132-148) 02/13/17 08:00 Potassium 4.3 mmol/L (3.6-5.0) 02/13/17 08:00 Chloride 111 mmol/L (98-107) H 02/13/17 08:00 Carbon Dioxide 23 mmol/L (21-33) 02/13/17 08:00 Anion Gap 11 (10-20) 02/13/17 08:00 BUN 16 mg/dL (7-21) 02/13/17 08:00 Creatinine 1.2 mg/dL (0.5-1.4) 02/13/17 08:00 Est GFR ( Amer) > 60 02/13/17 08:00 Est GFR (Non-Af Amer) > 60 02/13/17 08:00 POC Glucose (mg/dL) 191 mg/dL (65-110) H 02/11/17 02:31 Random Glucose 106 mg/dL (70-110) 02/13/17 08:00 Serum Osmolality 311 mosm/kg (271-296) H 02/11/17 04:03 Calcium 8.3 mg/dL (8.4-10.5) L 02/13/17 08:00 Total Bilirubin 1.0 mg/dL (0.2-1.3) 02/12/17 06:00 AST 71 U/L (15-59) H 02/12/17 06:00 ALT 28 U/L (7-56) 02/12/17 06:00 Alkaline Phosphatase 46 U/L (38-133) 02/12/17 06:00 Ammonia < 9 umol/L (9-33) L 02/11/17 07:30 Lactate Dehydrogenase 844 U/L (333-699) H 02/11/17 16:30 Total Creatine Kinase 1401 U/L (35-230) H 02/11/17 16:30 CK-MB (CK-2) 11.1 ng/mL (0.0-3.6) H 02/11/17 16:30 CK-MB (CK-2) % 0.8 % (2.5-3.0) L 02/11/17 16:30 Troponin I 0.02 ng/mL D 02/11/17 16:30 Total Protein 6.2 g/dL (5.8-8.3) 02/12/17 06:00 Albumin 3.3 g/dL (3.0-4.8) 02/12/17 06:00 Globulin 2.8 gm/dL 02/12/17 06:00 Albumin/Globulin Ratio 1.2 (1.1-1.8) 02/12/17 06:00 Procalcitonin 0.07 NG/ML (0.19-0.49) L 02/12/17 06:00 Venous Blood Potassium 3.7 mmol/L (3.6-5.2) 02/11/17 07:30 Urine Color Yellow (YELLOW) 02/11/17 06:17 Urine Appearance Slight-cloudy (CLEAR) 02/11/17 06:17 Urine pH 6.0 (4.7-8.0) 02/11/17 06:17 Ur Specific [place] >= 1.030 (1.005-1.035) 02/11/17 06:17 Urine Protein 100 mg/dL (<30 mg/dL) H 02/11/17 06:17 Urine Glucose (UA) Negative mg/dL (NEGATIVE) 02/11/17 06:17 Urine Ketones Negative mg/dL (NEGATIVE) 02/11/17 06:17 Urine Blood Small (NEGATIVE) H 02/11/17 06:17 Urine Nitrate Negative (NEGATIVE) 02/11/17 06:17 Urine Bilirubin Negative (NEGATIVE) 02/11/17 06:17 Urine Urobilinogen 0.2 E.U./dL (<1 E.U./dL) 02/11/17 06:17 Ur Leukocyte Esterase Negative Airam/uL (NEGATIVE) 02/11/17 06:17 Urine RBC 0 - 2 /hpf (0-2) 02/11/17 06:17 Urine WBC 0 - 2 /hpf (0-6) 02/11/17 06:17 Ur Epithelial Cells 0 - 2 /hpf (0-5) 02/11/17 06:17 Urine Osmolality 696 mosm/kg (50-645) H 02/11/17 06:17 Salicylates < 1 mg/dL (2.0-20.0) L 02/11/17 07:45 Phenytoin < 3 ug/mL (10-20) L 02/12/17 06:00 Alcohol, Quantitative < 10 mg/dL (0-10) 02/11/17 07:45 Attending/Attestation - Attestation I have personally seen and examined this patient.: Yes I have fully participated in the care of the patient.: Yes I have reviewed all pertinent clinical information, including history, physical exam and plan: Yes Notes (Text): Patient was seen and examined with emergency medical technician basic .Agreed with resident assessment and plan. Please see progess on 02/13/17 Management plan was discussed in detail with patient Education was provided.
== END 2017-02-13 17:44 | disposition home or self-care (01) | DRG 100 ==
LOC: ED 02:12 → ERH 05:37 → 2RNO 06:49
PROVIDERS: ADMIT Internal Medicine; ATTEND Internal Medicine
DX: G40.909 Epilepsy, unspecified, not intractable, without status epilepticus (principal); A41.9 Sepsis, unspecified organism; E87.2 Acidosis; F25.9 Schizoaffective disorder, unspecified; F31.81 Bipolar II disorder; F32.9 Major depressive disorder, single episode, unspecified; F43.10 Post-traumatic stress disorder, unspecified; J44.9 Chronic obstructive pulmonary disease, unspecified; B19.20 Unspecified viral hepatitis C without hepatic coma; M54.9 Dorsalgia, unspecified; Z72.0 Tobacco use; Z91.19 Patient's noncompliance with other medical treatment and regimen

== ENCOUNTER 2018-01-10 12:05 | Emergency (ER) | payer MEDICARE, BC ==
[2018-01-10 12:06] VITALS: BMI 32.5
--- NOTE | 2018-01-10 12:42 | ED PDOC ---
Arrival/HPI - General Time Seen by Provider: 01/10/18 12:27 Historian: Patient, Police - History of Present Illness Narrative History of Present Illness (Text): 01/10/18 12:38 67 year old male, with past medical history of seizure disorder, depression and PTSD, presents to the Emergency department accompanied by Thalia TORRES for medical and psychiatric evaluation today. Patient was found trespassing neighbour's apartment and refused to leave upon request. Police was called by neighbour yet the patient refused to cooperate. Pepper spray was used by police to take him into custody and was brought to the Emergency department immediately for clearance. Patient denies any complaints. Patient denies any trauma or discomfort to any areas of the body. Patient in uncooperative and uses profane languages frequently. Patient denies any suicidal or homicidal ideation. Time/Duration: Prior to Arrival Symptom Onset: Gradual Symptom Course: Improving Activities at Onset: Light Context: Street Past Medical History - Provider Review Nursing Documentation Reviewed: Yes - Infectious Disease Hx of Infectious Diseases: None - Tetanus Immunization Tetanus Immunization: Unknown - Past Medical History Past Medical History: No Previous - Cardiac Hx Cardiac Disorders: No Hx Hypertension: No - Pulmonary Hx Respiratory Disorders: No Hx Chronic Obstructive Pulmonary Disease (COPD): Yes Hx Tuberculosis: No - Neurological Hx Neurological Disorder: Yes (neuropathy) HX Cerebrovascular Accident: No Hx Seizures: Yes (30 yrs ago) - HEENT Hx HEENT Disorder: No - Renal Hx Renal Disorder: No - Endocrine/Metabolic Hx Endocrine Disorders: No - Hematological/Oncological Hx Cancer: No Hx Hepatitis C: Yes - Integumentary Hx Dermatological Disorder: No Other/Comment: red raised rash ble - Musculoskeletal/Rheumatological Hx Falls: No - Gastrointestinal Hx Gastrointestinal Disorders: No - Genitourinary/Gynecological Hx Genitourinary Disorders: No Hx Sexually Transmitted Diseases: No - Psychiatric Hx Anxiety: Yes Hx Depression: Yes Hx Post Traumatic Stress Disorder: Yes Hx Substance Use: Yes - Past Surgical History Past Surgical History: No Previous - Surgical History Other/Comment: back surgery - Anesthesia Hx Anesthesia: No Hx Anesthesia Reactions: No Hx Malignant Hyperthermia: No - Suicidal Assessment Feels Threatened In Home Enviroment: No Family/Social History - Physician Review Nursing Documentation Reviewed: Yes Family/Social History: Unknown Family HX Smoking Status: Former Smoker Hx Alcohol Use: No Hx Substance Use: Yes Allergies/Home Meds Allergies/Adverse Reactions: Allergies cat dander Allergy (Verified 02/11/17 02:16) ANAPHYLAXIS Home Medications: Home Meds Medication Instructions Recorded Confirmed Diazepam [Valium] 10 mg PO QID 02/11/17 02/11/17 LORazepam [Ativan] 2 mg PO QID 02/11/17 02/11/17 Review of Systems - Physician Review All systems were reviewed & negative as marked: Yes - Review of Systems Constitutional: Normal Eyes: Normal ENT: Normal Respiratory: Normal Cardiovascular: Normal Gastrointestinal: Normal Genitourinary Male: Normal Musculoskeletal: Normal. absent: Myalgias Skin: Other (redness to face) Neurological: Seizure (PMhx), Other (PTSD) Endocrine: Normal Hemo/Lymphatic: Normal Psychiatric: Normal. absent: Suicidal Ideation Physical Exam Vital Signs Reviewed: Yes Vital Signs Temp Pulse Resp BP Pulse Ox 01/10/18 12:38 97.6 F 93 H 17 164/100 H 99 Temperature: Afebrile Blood Pressure: Hypertensive Pulse: Tachycardic Respiratory Rate: Normal Appearance: Positive for: Well-Appearing, Non-Toxic, Other (Not cooperative and uses profane language frequently.) Pain Distress: None Mental Status: Positive for: Alert and Oriented X 3 - Systems Exam Head: Present: Atraumatic, Normocephalic Pupils: Present: PERRL Extroacular Muscles: Present: EOMI Conjunctiva: Present: Normal Mouth: Present: Moist Mucous Membranes Neck: Present: Normal Range of Motion Respiratory/Chest: Present: Clear to Auscultation, Good Air Exchange. No: Respiratory Distress, Accessory Muscle Use Cardiovascular: Present: Regular Rate and Rhythm, Normal S1, S2. No: Murmurs Abdomen: Present: Normal Bowel Sounds. No: Tenderness, Distention, Peritoneal Signs Back: Present: Normal Inspection Upper Extremity: Present: Normal Inspection. No: Cyanosis, Edema Lower Extremity: Present: Normal Inspection. No: Edema Neurological: Present: GCS=15, CN II-XII Intact, Speech Normal Skin: Present: Warm, Dry, Other (Mild redness to face.). No: Rashes Psychiatric: Present: Alert, Oriented x 3, Normal Insight, Normal Concentration. No: Suicidal Ideation, Homicidal Ideation, Delusional Medical Decision Making ED Course and Treatment: 01/10/18 12:44 Impression: 67 year old male presents to the Emergency department for psychiatric and medical evaluation. His face and conjunctiva are reddened from the pepper spray, he is not psychotic or delusional, he knows who he is, where he is and why he is here, he is not suicidal or homocidal. He is medically and psychiatrically cleared for group home. Plan: Release with police - Scribe Statement The provider has reviewed the documentation as recorded by the Scribe Yo Conde. All medical record entries made by the Scribe were at my direction and personally dictated by me. I have reviewed the chart and agree that the record accurately reflects my personal performance of the history, physical exam, medical decision making, and the department course for this patient. I have also personally directed, reviewed, and agree with the discharge instructions and disposition. Disposition/Present on Arrival - Present on Arrival Any Indicators Present on Arrival: No History of DVT/PE: No History of Uncontrolled Diabetes: No Urinary Catheter: No History of Decub. Ulcer: No History Surgical Site Infection Following: None - Disposition Have Diagnosis and Disposition been Completed?: Yes Diagnosis: Medical clearance for incarceration, History of posttraumatic stress disorder ( PTSD) Disposition: RELEASED IN POLICE CUSTODY Disposition Time: 12:57 Patient Plan: Discharge Condition: GOOD Discharge Instructions (ExitCare): [place] Additional Instructions: Mr Dayton Henning is psychiatrically and medically cleared for group home.
[2018-01-10 13:37] VITALS: BP 149/98; PULSE 98; RESP 18; TEMP 98; O2SAT 98
== END 2018-01-10 13:37 ==
LOC: ED 12:05
DX: Z02.89 Encounter for other administrative examinations (principal); Z86.59 Personal history of other mental and behavioral disorders; Z87.891 Personal history of nicotine dependence

== ENCOUNTER 2018-01-11 21:35 | Emergency (ER) | payer MEDICARE, BC ==
[2018-01-11 21:35] VITALS: BMI 32.5
[2018-01-11 21:48] VITALS: TEMP 96.5
[2018-01-11] MEDS ORDERED: Morphine 4 mg/ml ISec IM STA (22:15)
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
[2018-01-12 01:08] VITALS: RESP 18
[2018-01-12 03:04] VITALS: BP 124/71; PULSE 91; O2SAT 96
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
--- NOTE | 2018-01-13 02:45 | CARD ---
APPROVED REPORT EKG Measurement Heart [id number] CO [id number] <Conclusion> Normal sinus rhythm Normal ECG
== END 2018-01-12 03:26 | disposition home or self-care (01) ==
LOC: ED 21:35
DX: S32.039A Unspecified fracture of third lumbar vertebra, initial encounter for closed fracture (principal); S32.049A Unspecified fracture of fourth lumbar vertebra, initial encounter for closed fracture; S22.32XA Fracture of one rib, left side, initial encounter for closed fracture; Y04.0XXA Assault by unarmed brawl or fight, initial encounter; R07.89 Other chest pain; M54.5 Low back pain; Z87.891 Personal history of nicotine dependence; J44.9 Chronic obstructive pulmonary disease, unspecified
CPT/HCPCS: 71250; 72131; 93005; 96372; 99284; J1885; J2270

== ENCOUNTER 2018-01-12 15:26 | Emergency (ER) | payer MEDICARE, BC ==
[2018-01-12 15:26] VITALS: BMI 32.5
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
--- NOTE | 2018-01-12 16:48 | RAD ---
HISTORY: increased confusion COMPARISON: 02/12/2017 FINDINGS: LUNGS: No active pulmonary disease. PLEURA: No significant pleural effusion identified, no pneumothorax apparent. CARDIOVASCULAR: Normal. OSSEOUS STRUCTURES: No significant abnormalities. VISUALIZED UPPER ABDOMEN: Normal. OTHER FINDINGS: None. IMPRESSION: No active disease.
[2018-01-12 17:54] LABS: BARBITURATES, UR NEGATIVE (NEGATIVE); BENZODIAZEPINES, UR NEGATIVE (NEGATIVE); OPIATES, UR POSITIVE (NEGATIVE); PHENCYCLIDINE, UR NEGATIVE (NEGATIVE)
--- NOTE | 2018-01-12 20:49 | CT ---
EXAM: CT Head Without Intravenous Contrast EXAM DATE/TIME: 01/12/2018 7:10 PM CLINICAL HISTORY: The patient age is 67 years old and is male; Signs and symptoms; Altered mental status/memory loss; Confusion or disorientation; Additional info: AMS, confusion Facility exam id and description: Ct heads head w/o contrast TECHNIQUE: Axial computed tomography images of the head/brain without intravenous contrast. All CT scans at this facility use one or more dose reduction techniques, viz.: automated exposure control; ma/kV adjustment per patient size (including targeted exams where dose is matched to indication; i.e. head); or iterative reconstruction technique. Coronal and sagittal reformatted images were created and reviewed. COMPARISON: CT - HEAD W/O CONTRAST 2017-02-11 03:40 FINDINGS: Brain: The white-limon differentiation is preserved demonstrating no acute territorial type infarct. There is mild prominence of the ventricles and sulci, compatible with atrophy. No acute intracranial hemorrhage is seen. Midline shift: There is no midline shift. Ventricles: See above. Bones/joints: The calvarium demonstrates no evidence for a depressed fracture. Soft tissues: No acute abnormality. Vasculature: There is atherosclerotic calcification of the cavernous internal carotid arteries. Sinuses: Unremarkable as visualized. No acute sinusitis. Mastoid air cells: No mastoid effusion. IMPRESSION: 1. No acute intracranial hemorrhage or acute territorial type infarct. 2. Mild stable atrophy.
[2018-01-12 22:43] LABS: TROPONIN I 0.02 ng/mL
[2018-01-12 22:49] LABS: CK MB% 0.9 % (2.5-3.0); CK-MB 10.9 ng/mL (0.0-3.6)
[2018-01-12 23:24] LABS: BASO # 0.01 K/mm3 (0.0-2.0); BASO % 0.1 % (0.0-3.0); EOS # 0.1 (0.0-0.7); EOS % 0.3 % (1.5-5.0); GRAN # 9.16 (1.4-6.5); GRAN % 63.4 % (50.0-68.0); HEMOGLOBIN 14.2 g/dL (14.0-18.0); LYMPH % 27.4 % (22.0-35.0); MEAN CELL VOLUME 93.8 fl (80.0-105.0); MEAN CORPUSCULAR HEMOGLOBIN 32.5 pg (25.0-35.0); MEAN CORPUSCULAR HGB CONC 34.6 g/dl (31.0-37.0); MEAN PLATELET VOLUME 11.7 fl (7.0-11.0); MONO # 1.3 (0.1-0.6); MONO % 8.8 % (1.0-6.0); RBC 4.37 10^6/uL (3.5-6.1); WHITE BLOOD COUNT 14.5 10^3/ul (4.5-11.0)
[2018-01-12 23:26] LABS: ALB/GLOB RATIO 1.3 (1.1-1.8); ALBUMIN 4.1 g/dL (3.0-4.8); ALT/SGPT 47 U/L (7-56); AST/SGOT 87 U/L (17-59); BLOOD UREA NITROGEN 36 mg/dL (7-21); CALCIUM 9.9 mg/dL (8.4-10.5); GFR AFRICAN-AMERICAN > 60; GFR NON-AFRICAN AMERICAN > 60
[2018-01-12 23:27] LABS: ACETAMINOPHEN < 10.0 ug/ml (10.0-20.0); SALICYLATE < 1 mg/dL (2.0-20.0)
[2018-01-13] MEDS ORDERED: Sodium Chloride 0.9% 1,000 ML IV STA ×2 (02:46→04:00)
--- NOTE | 2018-01-13 02:50 | ED PDOC ---
Physical Exam Vital Signs Temp Pulse Resp BP Pulse Ox 01/13/18 06:03 68 18 121/62 98 01/12/18 19:15 74 18 134/82 98 01/12/18 17:32 79 17 138/82 97 01/12/18 15:36 98.5 F 85 18 142/87 100 Medical Decision Making ED Course and Treatment: 01/13/18 00:00 Endorsed to me by Dr. Au. Patient has history of delusional behavior for past couple of weeks. No SI/HI. Patient was to admitted for psychiatric care, but was non-voluntary. As per Dr. Au, patient with elevated CK/dehydration. Requiring treatment prior to medical clearance. Patient had been already seen and evaluated by PES. Currently resting comfortably. 01/13/18 06:50 Pt.seen by [facility] screeners.Accepted for transfer once bed availability occurs.Case endorsed to . - Lab Interpretations Lab Results: 01/12/18 22:10 01/12/18 22:10 Lab Results 01/12/18 22:10: Alcohol, Quantitative < 10 01/12/18 22:10: Salicylates < 1 L, Acetaminophen < 10.0 L 01/12/18 22:10: Sodium 141, Potassium 4.1, Chloride 103, Carbon Dioxide 23, Anion Gap 20, BUN 36 H, Creatinine 0.8, Est GFR ( Amer) > 60, Est GFR ( Non-Af Amer) > 60, Random Glucose 113 H, Calcium 9.9, Total Bilirubin 1.3, AST 87 H, ALT 47, Alkaline Phosphatase 67, Total Protein 7.2, Albumin 4.1, Globulin 3.1, Albumin/Globulin Ratio 1.3 01/12/18 22:10: WBC 14.5 H D, RBC 4.37, Hgb 14.2, Hct 41.0 L, MCV 93.8, MCH 32.5 , MCHC 34.6, RDW 14.0, Plt Count 217, MPV 11.7 H, Gran % 63.4, Lymph % (Auto) 27.4, [place] % (Auto) 8.8 H, Eos % (Auto) 0.3 L, Baso % (Auto) 0.1, Gran # 9.16 H , Lymph # (Auto) 4.0 H, [place] # (Auto) 1.3 H, Eos # (Auto) 0.1, Baso # (Auto) 0.01 01/12/18 22:10: Lactate Dehydrogenase 724 H, Total Creatine Kinase 1257 H, CK- MB (CK-2) 10.9 H, CK-MB (CK-2) % 0.9 L, Troponin I 0.02 01/12/18 17:15: Urine Opiates Screen Positive H, Urine Methadone Screen Negative , Ur Barbiturates Screen Negative, Ur Phencyclidine Scrn Negative, Ur Amphetamines Screen Negative, U Benzodiazepines Scrn Negative, U Oth Cocaine Metabols Negative, U Cannabinoids Screen Positive H - RAD Interpretation Radiology Orders: 01/12/18 15:57 CHEST PORTABLE [RAD] Stat 01/12/18 19:10 HEAD W/O CONTRAST [CT] Stat - Medication Orders Current Medication Orders: Discontinued Medications Sodium Chloride (Sodium Chloride 0.9%) 1,000 mls @ 999 mls/hr IV .Q1H1M STA Stop: 01/13/18 03:46 Last Admin: 01/13/18 03:05 Dose: 999 mls/hr eMAR Start Stop Document 01/13/18 03:05 RG (Rec: 01/13/18 03:12 RG [id number]) Intravenous Solution Start Date 01/13/18 Start Time 03:05 Sodium Chloride (Sodium Chloride 0.9%) 1,000 mls @ 999 mls/hr IV .Q1H1M STA Stop: 01/13/18 05:00 Last Admin: 01/13/18 04:00 Dose: 999 mls/hr eMAR Start Stop Document 01/13/18 04:00 AD (Rec: 01/13/18 05:52 AD [id number]) Intravenous Solution Start Date 01/13/18 Start Time 04:00 Ziprasidone (Geodon Inj) 10 mg IM STAT STA PRN Reason: Protocol Stop: 01/12/18 15:56 Last Admin: 01/12/18 19:32 Dose: 10 mg IM Administration Charges Document 01/12/18 19:32 SF (Rec: 01/12/18 19:33 SF [id number]) Injection Site MAR Injection Site Left Deltoid Charges for Administration # of IM Administrations 1 Ziprasidone (Geodon Inj) 10 mg IM STAT STA PRN Reason: Protocol Stop: 02/20/18 21:56 Disposition/Present on Arrival - Present on Arrival Any Indicators Present on Arrival: No History of DVT/PE: No History of Uncontrolled Diabetes: No Urinary Catheter: No History of Decub. Ulcer: No History Surgical Site Infection Following: None - Disposition Have Diagnosis and Disposition been Completed?: No Diagnosis: Delusional disorder, Post traumatic stress disorder (PTSD), Dehydration, Confusion Disposition Time: 07:00 Patient Problems: Current Active Problems Problem Status Onset Confusion Acute Dehydration Acute Delusional disorder Acute Post traumatic stress disorder (PTSD) Chronic Condition: STABLE Referrals: Biarthoney Bailey, [Primary Care Provider] - Follow up with primary Forms: [employer] ([place]an)
--- NOTE | 2018-01-13 07:30 | ED PDOC ---
Physical Exam Vital Signs Reviewed: Yes Temperature: Afebrile Blood Pressure: Normal Pulse: Regular Respiratory Rate: Normal Appearance: Positive for: Well-Appearing, Non-Toxic, Comfortable Pain Distress: None Mental Status: Positive for: Alert and Oriented X 3 <Damian Avelar - Last Filed: 01/13/18 07:29> Vital Signs Temp Pulse Resp BP Pulse Ox 01/13/18 18:58 98.1 F 74 17 124/82 98 01/13/18 18:04 68 17 130/82 98 01/13/18 16:44 68 16 130/80 99 01/13/18 15:46 98.0 F 68 18 113/75 99 01/13/18 13:34 70 18 108/65 98 01/13/18 11:28 62 18 135/52 L 98 01/13/18 09:30 88 18 128/76 98 01/13/18 08:15 98.6 F 01/13/18 07:32 70 18 130/66 98 01/13/18 06:03 68 18 121/62 98 01/12/18 19:15 74 18 134/82 98 01/12/18 17:32 79 17 138/82 97 01/12/18 15:36 98.5 F 85 18 142/87 100 Medical Decision Making - Lab Interpretations I have reviewed the lab results: Yes <Damian Avelar - Last Filed: 01/13/18 07:29> <Robert Vega - Last Filed: 01/13/18 19:38> ED Course and Treatment: 01/13/18 07:29 Case signed out to me by Dr. Lockett. Pending labs, [facility] transfer/bed availability. (Damian Avelar) 01/13/18 19:33 Case was signed out to me by Dr. Avelar to f/u [facility] Transfer. Patient was comfortable before transfer with no compliants. (Robert Vega) - Lab Interpretations Lab Results: 01/12/18 22:10 01/12/18 22:10 Lab Results 01/13/18 07:26: Total Creatine Kinase 843 H, CK-MB (CK-2) 7.3 H, CK-MB (CK-2) % 0.9 L 01/12/18 22:10: Alcohol, Quantitative < 10 01/12/18 22:10: Salicylates < 1 L, Acetaminophen < 10.0 L 01/12/18 22:10: Sodium 141, Potassium 4.1, Chloride 103, Carbon Dioxide 23, Anion Gap 20, BUN 36 H, Creatinine 0.8, Est GFR ( Amer) > 60, Est GFR ( Non-Af Amer) > 60, Random Glucose 113 H, Calcium 9.9, Total Bilirubin 1.3, AST 87 H, ALT 47, Alkaline Phosphatase 67, Total Protein 7.2, Albumin 4.1, Globulin 3.1, Albumin/Globulin Ratio 1.3 01/12/18 22:10: WBC 14.5 H D, RBC 4.37, Hgb 14.2, Hct 41.0 L, MCV 93.8, MCH 32.5 , MCHC 34.6, RDW 14.0, Plt Count 217, MPV 11.7 H, Gran % 63.4, Lymph % (Auto) 27.4, [place] % (Auto) 8.8 H, Eos % (Auto) 0.3 L, Baso % (Auto) 0.1, Gran # 9.16 H , Lymph # (Auto) 4.0 H, [place] # (Auto) 1.3 H, Eos # (Auto) 0.1, Baso # (Auto) 0.01 01/12/18 22:10: Lactate Dehydrogenase 724 H, Total Creatine Kinase 1257 H, CK- MB (CK-2) 10.9 H, CK-MB (CK-2) % 0.9 L, Troponin I 0.02 01/12/18 17:15: Urine Opiates Screen Positive H, Urine Methadone Screen Negative , Ur Barbiturates Screen Negative, Ur Phencyclidine Scrn Negative, Ur Amphetamines Screen Negative, U Benzodiazepines Scrn Negative, U Oth Cocaine Metabols Negative, U Cannabinoids Screen Positive H - RAD Interpretation Radiology Orders: 01/12/18 15:57 CHEST PORTABLE [RAD] Stat 01/12/18 19:10 HEAD W/O CONTRAST [CT] Stat - Medication Orders Current Medication Orders: Discontinued Medications Diphenhydramine HCl (Benadryl) 50 mg IVP STAT STA Stop: 01/13/18 09:26 Last Admin: 01/13/18 11:19 Dose: 50 mg IVP Administration Document 01/13/18 11:19 SZA (Rec: 01/13/18 11:19 SZA [id number]) Charges for Administration # of IVP Administrations 1 Haloperidol Lactate (Haldol) 10 mg IM STAT STA PRN Reason: Protocol Stop: 01/13/18 11:16 Last Admin: 01/13/18 11:19 Dose: 10 mg IM Administration Charges Document 01/13/18 11:19 SZA (Rec: 01/13/18 11:20 SZA [id number]) Injection Site MAR Injection Site Right Deltoid Charges for Administration # of IM Administrations 1 Sodium Chloride (Sodium Chloride 0.9%) 1,000 mls @ 999 mls/hr IV .Q1H1M STA Stop: 01/13/18 03:46 Last Admin: 01/13/18 03:05 Dose: 999 mls/hr eMAR Start Stop Document 01/13/18 03:05 RG (Rec: 01/13/18 03:12 RG [id number]) Intravenous Solution Start Date 01/13/18 Start Time 03:05 Sodium Chloride (Sodium Chloride 0.9%) 1,000 mls @ 999 mls/hr IV .Q1H1M STA Stop: 01/13/18 05:00 Last Admin: 01/13/18 04:00 Dose: 999 mls/hr eMAR Start Stop Document 01/13/18 04:00 AD (Rec: 01/13/18 05:52 AD [id number]) Intravenous Solution Start Date 01/13/18 Start Time 04:00 Lorazepam (Ativan) 2 mg IVP ONCE ONE PRN Reason: Protocol Stop: 01/13/18 09:26 Last Admin: 01/13/18 11:20 Dose: 2 mg IVP Administration Document 01/13/18 11:20 SZA (Rec: 01/13/18 11:20 SZA [id number]) Charges for Administration # of IVP Administrations 1 Ziprasidone (Geodon Inj) 10 mg IM STAT STA PRN Reason: Protocol Stop: 01/12/18 15:56 Last Admin: 01/12/18 19:32 Dose: 10 mg IM Administration Charges Document 01/12/18 19:32 SF (Rec: 01/12/18 19:33 SF [id number]) Injection Site MAR Injection Site Left Deltoid Charges for Administration # of IM Administrations 1 Ziprasidone (Geodon Inj) 10 mg IM STAT STA PRN Reason: Protocol Stop: 01/12/18 21:56 - Scribe Statement The provider has reviewed the documentation as recorded by the Scribe <Damian Avelar - Last Filed: 01/13/18 07:29> <Robert Vega - Last Filed: 01/13/18 19:38> - Scribe Statement Giovanny Scott Provider Scribe Attestation: All medical record entries made by the Scribe were at my direction and personally dictated by me. I have reviewed the chart and agree that the record accurately reflects my personal performance of the history, physical exam, medical decision making, and the department course for this patient. I have also personally directed, reviewed, and agree with the discharge instructions and disposition. (Damian Avelar) Disposition/Present on Arrival - Present on Arrival Any Indicators Present on Arrival: No History of DVT/PE: No History of Uncontrolled Diabetes: No Urinary Catheter: No History of Decub. Ulcer: No History Surgical Site Infection Following: None <Damian Avelar - Last Filed: 01/13/18 07:29> - Disposition Have Diagnosis and Disposition been Completed?: Yes Disposition Time: 19:38 Patient Plan: Transfer To <Robert Vega - Last Filed: 01/13/18 19:38> - Disposition Diagnosis: Delusional disorder, Post traumatic stress disorder (PTSD), Dehydration, Confusion Disposition: Transfer [facility] Patient Problems: Current Active Problems Problem Status Onset Post traumatic stress disorder (PTSD) Chronic Delusional disorder Acute Dehydration Acute Confusion Acute Condition: STABLE Referrals: [facility], [Non-Staff] - Follow up with primary Forms: [employer] (Divehi)
[2018-01-13 08:26] LABS: CK MB% 0.9 % (2.5-3.0); CK-MB 7.3 ng/mL (0.0-3.6)
[2018-01-13] MEDS ORDERED: DiphenhydrAMINE 50 mg/ml Inj IVP STA (09:25)
[2018-01-13 16:46] VITALS: RESP 17; TEMP 98.1; O2SAT 98
[2018-01-13 18:58] VITALS: BP 124/82; PULSE 74
--- NOTE | 2018-01-13 22:10 | CARD ---
APPROVED REPORT EKG Measurement Heart [id number] <Conclusion> Normal sinus rhythm Normal ECG
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
== END 2018-01-13 19:25 | disposition short-term general hospital (02) ==
LOC: ED 15:26
DX: E86.0 Dehydration (principal); F43.10 Post-traumatic stress disorder, unspecified; R41.0 Disorientation, unspecified; F22 Delusional disorders; Z87.891 Personal history of nicotine dependence; J44.9 Chronic obstructive pulmonary disease, unspecified
CPT/HCPCS: 70450; 71045; 80053; 82550; 82553; 83615; 84484; 85025; 90791; 93005; 96372; 96374; 96375; 99285; G0480; J1200; J1630; J2060; J3486; J7040

== ENCOUNTER 2018-09-10 02:25 | Inpatient (IN) | payer MEDICARE, BC ==
[2018-09-10 02:40] VITALS: BMI 23.7
--- NOTE | 2018-09-10 02:45 | ED PDOC ---
Arrival/HPI - General Chief Complaint: Altered Mental Status Time Seen by Provider: 09/10/18 02:44 Historian: Patient, Police - History of Present Illness Narrative History of Present Illness (Text): 09/10/18 04:31 A 68 year old male, whose past medical history includes schizophrenia and bipolar disorder, presents to the emergency department brought in by [employer] who found patient wondering the streets. Patient denies any SI, HI, fever, chills, shortness of breath, chest pain, diarrhea, nausea, vomiting, urinary symptoms, back pain, neck pain, headache, dizziness, or any other complaints. PMD: Dr. Lyles Time/Duration: 4-6 hours (earlier tonight) Symptom Onset: Gradual Symptom Course: Unchanged Activities at Onset: Light Context: Street Past Medical History - Provider Review Nursing Documentation Reviewed: Yes - Past History Past History: No Previous - Infectious Disease Hx of Infectious Diseases: None - Tetanus Immunization Tetanus Immunization: Unknown - Past Medical History Past Medical History: No Previous - Cardiac Hx Cardiac Disorders: No Hx Hypertension: No - Pulmonary Hx Respiratory Disorders: No Hx Chronic Obstructive Pulmonary Disease (COPD): Yes Hx Tuberculosis: No - Neurological Hx Neurological Disorder: Yes (neuropathy) HX Cerebrovascular Accident: No Hx Seizures: Yes (30 yrs ago) - HEENT Hx HEENT Disorder: No - Renal Hx Renal Disorder: No - Endocrine/Metabolic Hx Endocrine Disorders: No - Hematological/Oncological Hx Cancer: No Hx Hepatitis C: Yes - Integumentary Hx Dermatological Disorder: No Other/Comment: red raised rash ble - Musculoskeletal/Rheumatological Hx Falls: No - Gastrointestinal Hx Gastrointestinal Disorders: No - Genitourinary/Gynecological Hx Genitourinary Disorders: No Hx Sexually Transmitted Diseases: No - Psychiatric Hx Anxiety: Yes Hx Depression: Yes Hx Post Traumatic Stress Disorder: Yes Hx Substance Use: Yes - Past Surgical History Past Surgical History: No Previous - Surgical History Other/Comment: back surgery - Anesthesia Hx Anesthesia: Yes - Suicidal Assessment Feels Threatened In Home Enviroment: No Family/Social History - Physician Review Nursing Documentation Reviewed: Yes Family/Social History: Unknown Family HX Smoking Status: Former Smoker Hx Alcohol Use: No Hx Substance Use: Yes Hx Substance Use Treatment: No Allergies/Home Meds Allergies/Adverse Reactions: Allergies cat dander Allergy (Severe, Verified 09/10/18 02:39) ANAPHYLAXIS Home Medications: Home Meds Medication Instructions Recorded Confirmed RX: Diazepam [Valium] 10 mg PO QID 02/11/17 01/12/18 RX: LORazepam [Ativan] 2 mg PO QID 02/11/17 01/12/18 Review of Systems - Physician Review All systems were reviewed & negative as marked: Yes - Review of Systems Constitutional: absent: Fevers, Night Sweats Respiratory: absent: SOB Cardiovascular: absent: Chest Pain Gastrointestinal: absent: Diarrhea, Nausea, Vomiting Genitourinary Male: absent: Urinary Output Changes Musculoskeletal: absent: Back Pain, Neck Pain Neurological: absent: Headache, Dizziness Psychiatric: absent: Suicidal Ideation Physical Exam Vital Signs Reviewed: Yes Temperature: Afebrile Blood Pressure: Normal Pulse: Regular Respiratory Rate: Normal Appearance: Positive for: Well-Appearing, Non-Toxic, Comfortable Pain Distress: None Mental Status: Positive for: Alert and Oriented X 3 - Systems Exam Head: Present: Atraumatic, Normocephalic Pupils: Present: PERRL Extroacular Muscles: Present: EOMI Conjunctiva: Present: Normal Mouth: Present: Moist Mucous Membranes Neck: Present: Normal Range of Motion Respiratory/Chest: Present: Clear to Auscultation, Good Air Exchange. No: Respiratory Distress, Accessory Muscle Use Cardiovascular: Present: Regular Rate and Rhythm, Normal S1, S2. No: Murmurs Abdomen: No: Tenderness, Distention, Peritoneal Signs Back: Present: Normal Inspection Upper Extremity: Present: Normal Inspection. No: Cyanosis, Edema Lower Extremity: Present: Normal Inspection. No: Edema Neurological: Present: GCS=15, CN II-XII Intact, Speech Normal Skin: Present: Warm, Dry, Normal Color. No: Rashes Psychiatric: Present: Alert, Oriented x 3, Normal Concentration, Other (+tangential, rambling). No: Suicidal Ideation, Homicidal Ideation Medical Decision Making ED Course and Treatment: 09/10/18 04:32 Impression: 68 year old male presenting to the emergency department brought in by [employer] for confusion Plan: -- Head CT without contrast -- EKG -- Labs -- CBC -- COAGs -- Chest X-ray -- Blood culture -- urine culture -- PES evaluation -- Urinalysis -- Reassess and disposition Prior Visits: Notes and results from previous visits were reviewed. Progress Notes: 09/10/18 03:40 EKG: Ordered, reviewed, and independently interpreted the EKG. Rate : 86 BPM Rhythm : NSR Interpretation : No ST-segment elevations or depressions, no T-wave inversions, normal intervals. 09/10/18 04:22 Chest X-ray negative reviewed by me, results show no acute findings. 09/10/18 4:00 Procedure: Head CT without contrast Impression: 1. Age-appropriate cerebellar and cerebral atrophy. 2. Mild chronic microvascular disease. 3. No evidence of acute intracranial pathology. Dictator: Odalys Garcia M.D. 09/10/18 05:40 Patient is currently using his index finger and tracing figures in the air. Patient mumbling to himself, continues to deny any complaints. Pt not medically clear, chemistry is hemolyzed. PES is passing the patient along to the next worker. 09/10/18 07:10 Patient is medically clear for PES assessement. Patient signed out to Dr. Vega at shift change. Patient is pending PES evaluation. - Scribe Statement The provider has reviewed the documentation as recorded by the Scribaurelio Horne All medical record entries made by the Scribe were at my direction and personally dictated by me. I have reviewed the chart and agree that the record accurately reflects my personal performance of the history, physical exam, medical decision making, and the department course for this patient. I have also personally directed, reviewed, and agree with the discharge instructions and disposition. Disposition/Present on Arrival - Present on Arrival Any Indicators Present on Arrival: No History of DVT/PE: No History of Uncontrolled Diabetes: No Urinary Catheter: No History of Decub. Ulcer: No History Surgical Site Infection Following: None - Disposition Have Diagnosis and Disposition been Completed?: Yes Diagnosis: Schizoaffective disorder Disposition: HOSPITALIZED Disposition Time: 07:00 Patient Plan: Admission Patient Problems: Current Active Problems Problem Status Onset Schizoaffective disorder Acute Condition: FAIR
[2018-09-10 04:51] LABS: INR 1.12; PARTIAL THROMBOPLASTIN TIME 30.4 Seconds (25.1-36.5); PROTHROMBIN TIME 12.8 SECONDS (9.4-12.5)
[2018-09-10 05:00] LABS: BASO # 0.02 K/mm3 (0.0-2.0); BASO % 0.2 % (0.0-3.0); EOS # 0.2 (0.0-0.7); EOS % 2.7 % (1.5-5.0); GRAN # 5.14 (1.4-6.5); GRAN % 60.1 % (50.0-68.0); HEMOGLOBIN 15.2 g/dL (14.0-18.0); LYMPH # 2.4 (1.2-3.4); MEAN CELL VOLUME 93.7 fl (80.0-105.0); MEAN CORPUSCULAR HEMOGLOBIN 32.9 pg (25.0-35.0); MEAN CORPUSCULAR HGB CONC 35.1 g/dl (31.0-37.0); MEAN PLATELET VOLUME 11.2 fl (7.0-11.0); MONO # 0.8 (0.1-0.6); RBC 4.62 10^6/uL (3.5-6.1); RED CELL DISTRIBUTION WIDTH 12.5 % (11.5-14.5); WHITE BLOOD COUNT 8.6 10^3/ul (4.5-11.0)
[2018-09-10 05:01] LABS: ACETAMINOPHEN < 10.0 ug/ml (10.0-20.0); SALICYLATE < 1 mg/dL (2.0-20.0)
[2018-09-10 05:35] LABS: PH,URINE 6.5 (4.7-8.0); URINE BILIRUBIN NEGATIVE (NEGATIVE); URINE BLOOD NEGATIVE (NEGATIVE); URINE GLUCOSE (UA) NEGATIVE (NEGATIVE); URINE LEUKOCYTE ESTERASE NEGATIVE Leu/uL (NEGATIVE); URINE PROTEIN NEGATIVE mg/dL (<30 mg/dL)
[2018-09-10 05:45] LABS: URINE APPEARANCE CLEAR (CLEAR); URINE COLOR YELLOW (YELLOW)
[2018-09-10 05:52] LABS: ALB/GLOB RATIO 1.2 (1.1-1.8); ALBUMIN 4.1 g/dL (3.0-4.8); ALT/SGPT 26 U/L (7-56); AST/SGOT 26 U/L (17-59); BLOOD UREA NITROGEN 17 mg/dL (7-21); CALCIUM 9.1 mg/dL (8.4-10.5); GFR NON-AFRICAN AMERICAN > 60
[2018-09-10 06:08] LABS: BENZODIAZEPINES, UR NEGATIVE (NEGATIVE)
[2018-09-10 06:16] LABS: TROPONIN I 0.03 ng/mL
[2018-09-10 06:21] LABS: BARBITURATES, UR NEGATIVE (NEGATIVE); OPIATES, UR NEGATIVE (NEGATIVE); PHENCYCLIDINE, UR NEGATIVE (NEGATIVE)
--- NOTE | 2018-09-10 08:21 | CT ---
Date of service: 09/10/2018 PROCEDURE: CT HEAD WITHOUT CONTRAST. HISTORY: ams COMPARISON: Noncontrast head CT performed 01/12/18 TECHNIQUE: Axial computed tomography images were obtained through the head/brain without intravenous contrast. Radiation dose: Total exam DLP = 843.02 mGy-cm. This CT exam was performed using one or more of the following dose reduction techniques: Automated exposure control, adjustment of the mA and/or kV according to patient size, and/or use of iterative reconstruction technique. FINDINGS: Streak artifact limits evaluation of the skull base. HEMORRHAGE: No intracranial hemorrhage. BRAIN: Diffuse atrophy with prominence of the ventricles and sulci noted. No mass effect or edema. Mild scattered white matter hypodensities, which are nonspecific, but often seen with chronic microvascular ischemic disease. Please note that MRI with diffusion imaging is more sensitive in the detection of acute ischemic event. VENTRICLES: No hydrocephalus. CALVARIUM: Unremarkable. PARANASAL SINUSES: Unremarkable as visualized. No significant inflammatory changes. MASTOID AIR CELLS: Unremarkable as visualized. No inflammatory changes. OTHER FINDINGS: None. IMPRESSION: Nonspecific white matter changes. Generalized atrophy. Preliminary impression was provided by [employer].
--- NOTE | 2018-09-10 09:01 | ED PDOC ---
Physical Exam Vital Signs Reviewed: Yes Vital Signs Temp Pulse Resp BP Pulse Ox 09/10/18 07:05 98.0 F 81 18 111/80 97 09/10/18 06:10 75 18 125/67 99 09/10/18 04:55 74 18 137/69 97 09/10/18 04:21 98 F 71 18 101/66 97 09/10/18 03:56 98 F 76 18 109/72 96 Temperature: Afebrile Blood Pressure: Normal Pulse: Regular Respiratory Rate: Normal Appearance: Positive for: Well-Appearing, Non-Toxic, Comfortable Pain Distress: None Mental Status: Positive for: Alert and Oriented X 3 Finger Stick Blood Glucose: 134 Medical Decision Making ED Course and Treatment: 09/10/18 07:00 Patient signed out to me by Dr. Roper to follow up with PES evaluation. 09/10/18 08:43 PES purchase order checker Hoda recommends evaluation by Dr. Vann. 09/10/18 09:09 PES Hoda reevaluated patient. After further assessment he agreed to stay in the hospital for further treatment. He will be admitted under Dr. Tamiko Vann. - Lab Interpretations Lab Results: 09/10/18 03:50 09/10/18 05:00 Lab Results 09/10/18 05:00: Sodium 136, Potassium 4.1, Chloride 103, Carbon Dioxide 25, Anion Gap 13, BUN 17, Creatinine 0.7 L, Est GFR ( Amer) > 60, Est GFR (Non-Af Amer) > 60, Random Glucose 108, Calcium 9.1, Phosphorus 3.4, Magnesium 2.0, Total Bilirubin 0.5, AST 26, ALT 26, Alkaline Phosphatase 81, Lactate Dehydrogenase 482, Total Creatine Kinase 90, Troponin I 0.03 D, Total Protein 7.5, Albumin 4.1, Globulin 3.5, Albumin/Globulin Ratio 1.2 09/10/18 04:34: Urine Opiates Screen Negative, Urine Methadone Screen Negative, Ur Barbiturates Screen Negative, Ur Phencyclidine Scrn Negative, Ur Amphetamines Screen Negative, U Benzodiazepines Scrn Negative, U Oth Cocaine Metabols Negative, U Cannabinoids Screen Positive H 09/10/18 04:34: Urine Color Yellow, Urine Appearance Clear, Urine pH 6.5, Ur Specific [place] 1.015, Urine Protein Negative, Urine Glucose (UA) Negative, Urine Ketones Negative, Urine Blood Negative, Urine Nitrate Negative, Urine Bilirubin Negative, Urine Urobilinogen 4.0 H, Ur Leukocyte Esterase Negative 09/10/18 03:50: Salicylates < 1 L, Acetaminophen < 10.0 L 09/10/18 03:50: TSH 3rd Generation 1.80, Alcohol, Quantitative < 10 09/10/18 03:50: Ammonia 13 09/10/18 03:50: PT 12.8 H, INR 1.12, APTT 30.4 09/10/18 03:50: WBC 8.6 D, RBC 4.62, Hgb 15.2, Hct 43.3, MCV 93.7, MCH 32.9, MCHC 35.1, RDW 12.5, Plt Count 225, MPV 11.2 H, Gran % 60.1, Lymph % (Auto) 28.0, [place] % (Auto) 9.0 H, Eos % (Auto) 2.7, Baso % (Auto) 0.2, Gran # 5.14, Lymph # (Auto) 2.4, [place] # (Auto) 0.8 H, Eos # (Auto) 0.2, Baso # (Auto) 0.02 09/10/18 02:36: POC Glucose (mg/dL) 134 H - RAD Interpretation Radiology Orders: 09/10/18 03:01 HEAD W/O CONTRAST [CT] Stat 09/10/18 03:02 CHEST ONE VIEW [RAD] Stat - Scribe Statement The provider has reviewed the documentation as recorded by the Johnna Guzman Provider Scribe Attestation: All medical record entries made by the Johnna were at my direction and personally dictated by me. I have reviewed the chart and agree that the record accurately reflects my personal performance of the history, physical exam, medical decision making, and the department course for this patient. I have also personally directed, reviewed, and agree with the discharge instructions and disposition. Disposition/Present on Arrival - Present on Arrival Any Indicators Present on Arrival: No History of DVT/PE: No History of Uncontrolled Diabetes: No Urinary Catheter: No History of Decub. Ulcer: No History Surgical Site Infection Following: None - Disposition Have Diagnosis and Disposition been Completed?: Yes Diagnosis: Schizoaffective disorder Disposition: HOSPITALIZED Disposition Time: 09:10 Patient Plan: Admission Condition: FAIR Referrals: Keyur Lyles MD [Primary Care Provider] - Follow up with primary Forms: [employer] (Indian)
--- NOTE | 2018-09-10 09:45 | CARD ---
APPROVED REPORT Date of service: 09/10/2018 EKG Measurement Heart [id number] <Conclusion> Normal sinus rhythm Normal ECG
--- NOTE | 2018-09-10 10:27 | RAD ---
Date of service: 09/10/2018 PROCEDURE: CHEST RADIOGRAPH, 1 VIEW HISTORY: ams COMPARISON: 01/12/2018 FINDINGS: LUNGS: Clear. PLEURA: No pneumothorax or pleural fluid seen. CARDIOVASCULAR: Normal. OSSEOUS STRUCTURES: No significant abnormalities. VISUALIZED UPPER ABDOMEN: Normal. OTHER FINDINGS: None. IMPRESSION: No active disease.
[2018-09-10] MEDS ORDERED: OLANZapine 5 mg Disintegrating Tab PO STA (10:55)
[2018-09-10 10:57] VITALS: O2SAT 99
--- NOTE | 2018-09-10 11:20 | PCM.BM ---
<Cesar Martins - Last Filed: 09/10/18 11:17> Treatment Plan Problems - Problems identified on initial assessmt AGITATED BEHAVIOR Date Initiated: 09/10/18 Time Initiated: : Assessment reference: HP, NA Status: Active ALTERED EMOTIONAL STATUS Date Initiated: 09/10/18 Time Initiated: 11:19 Assessment reference: HP, NA THOUGHT PROCESS ALTERATION Date Initiated: 09/10/18 Time Initiated: 11: Assessment reference: HP, NA Status: Active Treatment assets and liabiliti Patient Assests: adapts well, negotiates basic needs, other Patient Liabilities: substance abuse, medical problems, other - Milieu Protocol Maintain good personal hygiene: daily Encourage regular showers, daily Remind patient to perform daily oral care, daily Assist patient to perform ADL's Maintain personal safety: daily Educate patient to report safety concerns to staff, daily Monitor environment for contraband/sharps Medication safety: Monitor for expected outcome, potential side effects: daily, Assess barriers to learning: daily, Assess readiness for medication education: daily Discharge/Continuing Care - Education Needs Education Needs: Patient Medication, Patient Diagnosis/Disease Process, Patient Coping Skills, Patient Anger Management skills, Patient Placement options, Patient Community resources, Patient Activities of Daily Living, Patient Uses of Medical Equipment, Patient Health Practices/Safety, Patient Personal Hygiene/Grooming, Patient Aftercare Safety Plan - Discharge Discharge Criteria: Tolerates medication w/o severe side effects, Free of Suicidal thoughts <Tamiko Vann - Last Filed: 09/10/18 15:52> - Diagnosis (1) Schizoaffective disorder Status: Acute Interventions: 09/10/18 15:52 Psychoeducation/psychotherapy Psychopharmacology/adjustment of medications as needed/ monitoring possible side effects Evaluate pt on daily basis Compliance with medications and follow up appointments Long acting medication if pt is noncompliant with pill form Suicide and homicide risk assessment and prevention, coping strategies, safety plan Relapse prevention Reduction of symptoms Improve functional status Possible assertive community treatment Cognitive behavioral therapy Family involvement Possible social skill training as outpatient <Tamara Mcneill - Last Filed: 09/13/18 13:11> Family Contact Family involvement: Family/SO is involved Family contact: Patient agrees to contact Family contact name: Ella Henning() Family contacted how many times per week?: 2 <Hoda Guillory - Last Filed: 09/13/18 14:17>
[2018-09-10] MEDS ORDERED: Magnesium Hydroxide Susp 30 ml UD PO PRN (14:22)
[2018-09-10] MEDS ORDERED: Alum-Mag Hydrox-Simethicone Susp (30 mL) PO PRN (14:22)
--- NOTE | 2018-09-10 15:52 | PCM.PSYCH ---
Initial Psychiatric Evaluation - Initial Psychiatric Evaluation Type of Admission: Voluntary Legal Status: Capacity (patient has capacity to sign consent for treatment) Chief Complaint (in patient's own words): "I will stay here because her own the building" Patient's Reaction to Hospitalization: patient was admitted to the psychiatric inpatient unit for evaluation and stabilization of bizarre and disorganized behavior History of Present Illness and Precipitating Events: shortly patient is a 68 year old male, whose past medical history includes schizoaffective disorder, possible PTSD, multiple psychiatric admissions in the past, chronic noncompliance with the medications and follow up appointments, patient under care or Dr. Lc Savage (local psychiatrist), pt was brought in by police after being found wandering on the streets, acting bizarre, disorganized, during the PES evaluation pt remembered this field underwriter from previous admission, signed consent for treatment, had capacity to do so. Patient was seen and examined at the TV area, patient presented to be absolutely disorganized, was not able to hold conversation, patient reported that he wanted to sign himself into the hospital and "right now I will stay here because I own the building", patient was observed trying to elope from the unit, patient requires one-to-one observation for elopement precaution. patient presented with poor personal hygiene, acceptable ADLs patient said that someone overdosed him on some pills that's why he was wa ndering on the streets. Patient was not able to participate in interview due to his disorganized thought process, bizarre presentation. Patient needed to be medicated with Zyprexa zydis 5 mg plus ativan 1mg. as per family (PES report) pt has tendency of wondering, h/o confusion, pt went to sleep last night and when woke up pt was not there. Pt. uses [facility] pharmacy in [place] to fill his prescriptions [phone] Patient was on lorazepam 1 mg 4 times a day prescribed by field Lillie in 09/03/2018 Depakote extended-release 500 mg at the nighttime last filled in June 2018 this field underwriter is very familiar with this patient from the previous admission, patient had history of PTSD, flashbacks, nightmares and reliving of the situation. was in [place], but not in combat. a month Patient denied history of being abused physically/emotional/sexual. h/o paranoia, fear that pt might be monitored by police. from the previous h/o: diagnosed with ADD after the course of interferon for the Hepatitis C treatment, pt said he was attending regular class and school, denied been in special ED school. Pt denies using drugs or alcohol, was not able provide h/o about smoking. Past psych h/o: pt had admission to [facility] in March 2015, was discharged on seroquel, noncompliant with meds, all together pt has 7admissions. pt is on disability for mental illness, lives with his . Family h/o: father and brother both completed suicide, hanging, father was at pt's age. medical h/o: seizure ? 09/10/18 03:50 09/10/18 05:00 Lab Results 09/10/18 05:00: Sodium 136, Potassium 4.1, Chloride 103, Carbon Dioxide 25, Anion Gap 13, BUN 17, Creatinine 0.7 L, Est GFR ( Amer) > 60, Est GFR (Non-Af Amer) > 60, Random Glucose 108, Calcium 9.1, Phosphorus 3.4, Magnesium 2.0, Total Bilirubin 0.5, AST 26, ALT 26, Alkaline Phosphatase 81, Lactate Dehydrogenase 482, Total Creatine Kinase 90, Troponin I 0.03 D, Total Protein 7.5, Albumin 4.1, Globulin 3.5, Albumin/Globulin Ratio 1.2 09/10/18 04:34: Urine Opiates Screen Negative, Urine Methadone Screen Negative, Ur Barbiturates Screen Negative, Ur Phencyclidine Scrn Negative, Ur Amphetamines Screen Negative, U Benzodiazepines Scrn Negative, U Oth Cocaine Metabols Negative, U Cannabinoids Screen Positive H 09/10/18 04:34: Urine Color Yellow, Urine Appearance Clear, Urine pH 6.5, Ur Specific [place] 1.015, Urine Protein Negative, Urine Glucose (UA) Negative, Urine Ketones Negative, Urine Blood Negative, Urine Nitrate Negative, Urine Bilirubin Negative, Urine Urobilinogen 4.0 H, Ur Leukocyte Esterase Negative 09/10/18 03:50: Salicylates < 1 L, Acetaminophen < 10.0 L 09/10/18 03:50: TSH 3rd Generation 1.80, Alcohol, Quantitative < 10 09/10/18 03:50: Ammonia 13 09/10/18 03:50: PT 12.8 H, INR 1.12, APTT 30.4 09/10/18 03:50: WBC 8.6 D, RBC 4.62, Hgb 15.2, Hct 43.3, MCV 93.7, MCH 32.9, MCHC 35.1, RDW 12.5, Plt Count 225, MPV 11.2 H, Gran % 60.1, Lymph % (Auto) 28.0, [place]atte % (Auto) 9.0 H, Eos % (Auto) 2.7, Baso % (Auto) 0.2, Gran # 5.14, Lymph # (Auto) 2.4, Platte # (Auto) 0.8 H, Eos # (Auto) 0.2, Baso # (Auto) 0.02 09/10/18 02:36: POC Glucose (mg/dL) 134 H Vital Signs Temp Pulse Resp BP Pulse Ox 09/10/18 12:00 20 09/10/18 10:15 98.0 F 72 18 127/78 99 09/10/18 07:05 98.0 F 81 18 111/80 97 09/10/18 06:10 75 18 125/67 99 09/10/18 04:55 74 18 137/69 97 09/10/18 04:21 98 F 71 18 101/66 97 09/10/18 03:56 98 F 76 18 109/72 96 The patient failed the outpatient lower level of care: Yes Current Medications: Active Medications Generic Name Dose Route Start Last Admin Trade Name Freq PRN Reason Stop Dose Admin Acetaminophen 650 mg 09/10/18 14:22 Tylenol 325mg Tab PO Q4 PRN Pain, moderate (4-7) Al Hydrox/Mg Hydrox/Simethicone 30 ml 09/10/18 14:22 Maalox Plus 30 Ml PO DAILY PRN Upset Stomach Magnesium Hydroxide 30 ml 09/10/18 14:22 Milk Of Magnesia PO DAILY PRN Constipation Present on Admission - Present on Admission Any Indicators Present on Admission: No Review of Systems - Review of Systems Systems not reviewed;Unavailable: Acuity of Condition - Constitutional Constitutional: As Per HPI - EENT Eyes: As Per HPI Ears: As Per HPI Nose/Mouth/Throat: As Per HPI - Cardiovascular Cardiovascular: As Per HPI - Respiratory Respiratory: As Per HPI - Gastrointestinal Gastrointestinal: As Per HPI - Genitourinary Genitourinary: As Per HPI - Reproductive: Male Reproductive:Male: As Per HPI - Musculoskeletal Musculoskeletal: As Per HPI - Integumentary Integumentary: As Per HPI - Neurological Neurological: As Per HPI - Psychiatric Psychiatric: As Per HPI - Endocrine Endocrine: As Per HPI - Hematologic/Lymphatic Hematologic: As Per HPI Past Patient History - Past Psychiatric History Previous Treatment History: Inpatient Prior Professional Help: See HPI Prior Psychiatric Treatment: See HPI At what hospital: See HPI Duration: See HPI Nature of Treatment: See HPI Explanation of prior treatment: See HPI - PSYCHIATRIC Hx Anxiety: Yes Hx Depression: Yes Hx Schizophrenia: Yes Hx Substance Use: No - Infectious Disease Hx of Infectious Diseases: None - Tetanus Immunizations Tetanus Immunization: Unknown - Past Medical History & Family History Past Medical History?: Yes - CARDIAC Hx Cardiac Disorders: No Hx Hypertension: No - PULMONARY Hx Respiratory Disorders: No Hx Chronic Obstructive Pulmonary Disease (COPD): Yes Hx Tuberculosis: No - NEUROLOGICAL Hx Neurological Disorder: Yes (neuropathy) HX Cerebrovascular Accident: No Hx Seizures: Yes (30 yrs ago) - HEENT Hx HEENT Problems: No - RENAL Hx Chronic Kidney Disease: No - ENDOCRINE/METABOLIC Hx Endocrine Disorders: No - HEMATOLOGICAL/ONCOLOGICAL Hx Cancer: No Hx Hepatitis C: Yes - INTEGUMENTARY Hx Dermatological Problems: No Other/Comment: red raised rash ble - MUSCULOSKELETAL/RHEUMATOLOGICAL Hx Falls: No - GASTROINTESTINAL Hx Gastrointestinal Disorders: No - GENITOURINARY/GYNECOLOGICAL Hx Genitourinary Disorders: No Hx Sexually Transmitted Disorders: No - SURGICAL HISTORY Other/Comment: back surgery - ANESTHESIA Hx Anesthesia: Yes - Medical/Surgical History Reviewed & confirmed: by in Meds Allergies/Adverse Reactions: Allergies Allergy/AdvReac Type Severity Reaction Status Date / Time cat dander Allergy Severe ANAPHYLAXIS Verified 09/10/18 02:39 Mental Status Examination - Personal Presentation Personal Presentation: Looks older than stated age - Affect Affect: Constricted, Flat - Motor Activity Motor Activity: Psychomotor Agitation - Reliability in Providing Information Reliability in Providing Information: Poor, due to alteration in thoughts, Poor, due to cognitve impairment - Speech Speech: Disorganized - Formal Thought Process Formal Thought Process: Hallucinations, Delusions, Paranoia, Loosening of associations, Circumstantial, Perservation - Hallucinations/Delusions Hallucinations: Visual (actively hallucinating), Auditory (responding to internal stimuli) Delusions: Persecution - Obsessions/Compulsions Obsessions: None Compulsions: None - Cognitive Functions Orientation: Person, Place Sensorium: Alert Attention/Concentration: Easily distracted Abstract Thinking: [place] Estimate of Intelligence: Average Judgement: Intact, as evidence by: Insight regarding need for hospitalization - Risk Risk: Seizure, Self-mutilation, Diminished functioning - Strength & Assets Inventory Strength & Assets Inventory: Family support, Cooperative - Limitations Limitations: Other (severeness of the illness) Psychiatric Physical Exam - Physical Exam Reviewed and confirmed: Emergency Department Physical Exam Results - Vital Signs Recent Vital Signs: Last Vital Signs Temp 98.0 F 09/10/18 10:15 Pulse 72 09/10/18 10:15 Resp 20 09/10/18 12:00 BP 127/78 09/10/18 10:15 Pulse Ox 99 09/10/18 10:15 - Labs Result Diagrams: 09/10/18 03:50 09/10/18 05:00 Labs: Laboratory Results - last 24 hr 09/10/18 09/10/18 09/10/18 02:36 03:50 03:50 WBC 8.6 D RBC 4.62 Hgb 15.2 Hct 43.3 MCV 93.7 MCH 32.9 MCHC 35.1 RDW 12.5 Plt Count 225 MPV 11.2 H Gran % 60.1 Lymph % (Auto) 28.0 [place] % (Auto) 9.0 H Eos % (Auto) 2.7 Baso % (Auto) 0.2 Gran # 5.14 Lymph # (Auto) 2.4 [place]atte # (Auto) 0.8 H Eos # (Auto) 0.2 Baso # (Auto) 0.02 PT 12.8 H INR 1.12 APTT 30.4 Sodium Potassium Chloride Carbon Dioxide Anion Gap BUN Creatinine Est GFR ( Amer) Est GFR (Non-Af Amer) POC Glucose (mg/dL) 134 H Random Glucose Calcium Phosphorus Magnesium Total Bilirubin AST ALT Alkaline Phosphatase Ammonia Lactate Dehydrogenase Total Creatine Kinase Troponin I Total Protein Albumin Globulin Albumin/Globulin Ratio TSH 3rd Generation Urine Color Urine Appearance Urine pH Ur Specific [place] Urine Protein Urine Glucose (UA) Urine Ketones Urine Blood Urine Nitrate Urine Bilirubin Urine Urobilinogen Ur Leukocyte Esterase Salicylates Urine Opiates Screen Urine Methadone Screen Acetaminophen Ur Barbiturates Screen Ur Phencyclidine Scrn Ur Amphetamines Screen U Benzodiazepines Scrn U Oth Cocaine Metabols U Cannabinoids Screen Alcohol, Quantitative 09/10/18 09/10/18 09/10/18 03:50 03:50 03:50 WBC RBC Hgb Hct MCV MCH MCHC RDW Plt Count MPV Gran % Lymph % (Auto) [place] % (Auto) Eos % (Auto) Baso % (Auto) Gran # Lymph # (Auto) [place] # (Auto) Eos # (Auto) Baso # (Auto) PT INR APTT Sodium Potassium Chloride Carbon Dioxide Anion Gap BUN Creatinine Est GFR ( Amer) Est GFR (Non-Af Amer) POC Glucose (mg/dL) Random Glucose Calcium Phosphorus Magnesium Total Bilirubin AST ALT Alkaline Phosphatase Ammonia 13 Lactate Dehydrogenase Total Creatine Kinase Troponin I Total Protein Albumin Globulin Albumin/Globulin Ratio TSH 3rd Generation 1.80 Urine Color Urine Appearance Urine pH Ur Specific [place] Urine Protein Urine Glucose (UA) Urine Ketones Urine Blood Urine Nitrate Urine Bilirubin Urine Urobilinogen Ur Leukocyte Esterase Salicylates < 1 L Urine Opiates Screen Urine Methadone Screen Acetaminophen < 10.0 L Ur Barbiturates Screen Ur Phencyclidine Scrn Ur Amphetamines Screen U Benzodiazepines Scrn U Oth Cocaine Metabols U Cannabinoids Screen Alcohol, Quantitative < 10 09/10/18 09/10/18 09/10/18 04:34 04:34 05:00 WBC RBC Hgb Hct MCV MCH MCHC RDW Plt Count MPV Gran % Lymph % (Auto) [place] % (Auto) Eos % (Auto) Baso % (Auto) Gran # Lymph # (Auto) [place] # (Auto) Eos # (Auto) Baso # (Auto) PT INR APTT Sodium 136 Potassium 4.1 Chloride 103 Carbon Dioxide 25 Anion Gap 13 BUN 17 Creatinine 0.7 L Est GFR ( Amer) > 60 Est GFR (Non-Af Amer) > 60 POC Glucose (mg/dL) Random Glucose 108 Calcium 9.1 Phosphorus 3.4 Magnesium 2.0 Total Bilirubin 0.5 AST 26 ALT 26 Alkaline Phosphatase 81 Ammonia Lactate Dehydrogenase 482 Total Creatine Kinase 90 Troponin I 0.03 D Total Protein 7.5 Albumin 4.1 Globulin 3.5 Albumin/Globulin Ratio 1.2 TSH 3rd Generation Urine Color Yellow Urine Appearance Clear Urine pH 6.5 Ur Specific [place] 1.015 Urine Protein Negative Urine Glucose (UA) Negative Urine Ketones Negative Urine Blood Negative Urine Nitrate Negative Urine Bilirubin Negative Urine Urobilinogen 4.0 H Ur Leukocyte Esterase Negative Salicylates Urine Opiates Screen Negative Urine Methadone Screen Negative Acetaminophen Ur Barbiturates Screen Negative Ur Phencyclidine Scrn Negative Ur Amphetamines Screen Negative U Benzodiazepines Scrn Negative U Oth Cocaine Metabols Negative U Cannabinoids Screen Positive H Alcohol, Quantitative - EKG Data EKG Interpreted by: ER Physician DSM Plan - DSM 5 DSM 5 Diagnosis: bipolar spectrum disorder psychosis nos r/o schizophrenia spectrum disorder r/o schizoaffective d/o r/o PTSD cannabis abuse - Recommended/Plan of Treatment Treatment Recommendations and Plan of Treatment: Milieu/structure/supportive therapy Medical consult will be called Neurology consult was called CT of the head showed generalized atrophy SW consultation for discharge plan and social issues Med management pharmacy was contacted, see HPI Zyprexa 5 mg twice a day for psychosis Depakote 250 twice a day for mood stabilization PRN meds Family involvement Follow up on labs Will monitor closely Pt was educated about risk/benefits and alternatives of medications, coping strategies (safety plan, suicide prevention), relapse prevention, importance of follow up with psychiatrist and therapist, stay away from drugs/alcohol/smoking Projected ELOS: 7 days Prognosis: guarded Discharge Plan and Discharge Criteria: Pt will be not depressed or manic, will be more hopeful, will be not psychotic or anxious, will be not having thoughts of harming self or others, will be tolerating medications well, will not have major side effects, will be able to function, will not pose threat to self or others. - Tobacco Cessation Reason for not providing: unknown if pt smokes - Alcohol or Substance Abuse Does the patient have an Alcohol or Substance Abuse Disorder: Yes Initial Psych Certification - Initial Certification I certify that the inpatient psychiatric facility admission was medically necess domo for either: Treatment which could reasonbly be expected to improve pt's condition, Diagnostic study I estimate of hospitalization is necessary for proper treatment of the patient: 7 Unit of Time: Days My plans for post-hospital care for this patient are: day treatment program
[2018-09-10] MEDS: Divalproex 250 mg DR (BID formulation) PO SCH (18:18)
[2018-09-10] MEDS: OLANZapine 5 mg Disintegrating Tab PO SCH (21:15)
[2018-09-11 07:44] LABS: ALB/GLOB RATIO 1.2 (1.1-1.8); ALBUMIN 3.9 g/dL (3.0-4.8); ALT/SGPT 21 U/L (7-56); AST/SGOT 24 U/L (17-59); BLOOD UREA NITROGEN 17 mg/dL (7-21); CALCIUM 9.1 mg/dL (8.4-10.5); GFR NON-AFRICAN AMERICAN > 60; GLUCOSE,FASTING 124 mg/dL (65-110); HDL CHOLESTEROL 38 mg/dL (29-60)
[2018-09-11 07:50] LABS: BASO # 0.03 K/mm3 (0.0-2.0); BASO % 0.4 % (0.0-3.0); EOS # 0.3 (0.0-0.7); EOS % 3.9 % (1.5-5.0); GRAN # 3.41 (1.4-6.5); GRAN % 49.5 % (50.0-68.0); HEMOGLOBIN 15.1 g/dL (14.0-18.0); LYMPH # 2.5 (1.2-3.4); LYMPH % 35.9 % (22.0-35.0); MEAN CELL VOLUME 93.9 fl (80.0-105.0); MEAN CORPUSCULAR HEMOGLOBIN 32.8 pg (25.0-35.0); MEAN PLATELET VOLUME 11.2 fl (7.0-11.0); MONO # 0.7 (0.1-0.6); MONO % 10.3 % (1.0-6.0); RBC 4.6 10^6/uL (3.5-6.1); RED CELL DISTRIBUTION WIDTH 12.7 % (11.5-14.5); WHITE BLOOD COUNT 6.9 10^3/ul (4.5-11.0)
[2018-09-11 07:55] LABS: LDL CHOLESTEROL 45 mg/dL (0-129)
[2018-09-11 07:59] LABS: FREE T4 1.19 ng/dL (0.78-2.19)
[2018-09-11] MEDS: Divalproex 250 mg DR (BID formulation) PO SCH ×2 (08:52→17:19)
[2018-09-11] MEDS: Multivitamin With Minerals Tab PO SCH (08:52)
[2018-09-11] MEDS: OLANZapine 5 mg Disintegrating Tab PO SCH ×2 (10:08→22:23)
--- NOTE | 2018-09-11 10:10 | PCM.PYCHPN ---
Psychiatric Progress Note - Psychiatric Progress Note Patient seen today, length of contact: 25 min Problems Identified/Issues Discussed: I reviewed assessment and recent notes. Patient has required continuous monitoring in the dayroom because attempted to elope multiple times yesterday. Presently he appears calm and unaffected by my presence. He denies any new concerns, discomfort or pain. His responses are inconsistent, superficial and not entirely credible. Focus varies. Patient doesn't appear to be in any physical distress. Staff noted that patient refused depakote yesterday since "its a medication for manic people". He still seems confused, disoriented and thus, unpredictable. Diagnostic Results: bipolar spectrum disorder psychosis nos r/o schizophrenia spectrum disorder r/o schizoaffective d/o r/o PTSD cannabis abuse Medication Change: No Medical Record Reviewed: Yes Mental Status Examination - Cognitive Function Orientation: Person, Place Attention: Poor Concentration: Poor Association: Loose Fund of Knowledge: Poor - Mood Mood: Neutral - Affect Affect: Constricted, Flat - Formal Thought Process Formal Thought Process: Hallucinations, Delusions, Paranoia, Loosening of associations, Circumstantial, Perservation - Suicidal Ideation Suicidal Ideation: No - Homicidal Ideation Homicidal Ideation: No Goal/Treatment Plan - Goal/Treatment Plan Progress Toward Problem(s) and Goals/Treatment Plan: * c/w current tx and plan * Vitals reviewed and noted below: Selected Entries 09/10/18 09/10/18 09/10/18 11:26 12:00 16:00 Temperature 97.1 F L Pulse Rate 78 75 Respiratory 20 20 Rate Blood Pressure 118/68 121/59 L * New lab results noted for this weekend below: Laboratory Results - last 24 hr 09/11/18 09/11/18 09/11/18 07:00 07:00 07:00 WBC 6.9 RBC 4.60 Hgb 15.1 Hct 43.2 MCV 93.9 MCH 32.8 MCHC 35.0 RDW 12.7 Plt Count 224 MPV 11.2 H Gran % 49.5 L Lymph % (Auto) 35.9 H [place] % (Auto) 10.3 H Eos % (Auto) 3.9 Baso % (Auto) 0.4 Gran # 3.41 Lymph # (Auto) 2.5 [place] # (Auto) 0.7 H Eos # (Auto) 0.3 Baso # (Auto) 0.03 Sodium 141 Potassium 4.2 Chloride 109 H Carbon Dioxide 23 Anion Gap 14 BUN 17 Creatinine 0.7 L Est GFR ( Amer) > 60 Est GFR (Non-Af Amer) > 60 Random Glucose 124 H Fasting Glucose 124 H Calcium 9.1 Total Bilirubin 0.5 AST 24 ALT 21 Alkaline Phosphatase 71 Total Protein 7.2 Albumin 3.9 Globulin 3.3 Albumin/Globulin Ratio 1.2 Triglycerides 107 Cholesterol 104 L LDL Cholesterol Direct 45 HDL Cholesterol 38 Free T4 1.19 TSH 3rd Generation 1.61
--- NOTE | 2018-09-11 13:19 | PN ---
DATE: 09/11/2018 SUBJECTIVE: Patient is in the behavioral care unit, room 519, bed 1. Patient was admitted yesterday with diagnosis of auditory hallucination. Patient hears voices. Patient has past history of depression. Patient has had past history of chronic obstructive lung disease. He was a smoker for many years. Patient also has history of alcohol use and patient also has taken steroids in the past. The patient denies any history of cardiac problems. He does have history of peripheral neuropathy. Patient says that he was told that Seroquel prescription that was given to him caused peripheral neuropathy. PHYSICAL EXAMINATION: GENERAL: The patient is resting in bed. There is a one-to-one for the patient at this time. VITAL SIGNS: Pulse is 82, blood pressure 127/64, respirations of 20, O2 sat 99% on room air, temperature 97.6. He is calm, answers all questions. HEENT: Patient's head is normocephalic. NECK: Thyroid not enlarged. Carotid pulses are present. LUNGS: Trachea central. Breath sounds vesicular. No adventitious sounds. HEART: Normal sinus rhythm. S1, S2 present. ABDOMEN: Soft. Liver and spleen not palpable. WAXER OPERATOR: Patient has no focal neurological deficits. PLAN: Patient's list of medications consists of Ativan 2 mg every 6 hours. Patient is on Depakote 250 mg b.i.d., Geodon 20 mg every 6 hours. Patient is on Milk of Magnesia for chronic constipation. Patient gets Sonata 5 mg for sleep. Patient is on Zyprexa 5 mg p.o. at nighttime. Patient is on heart healthy diet. Patient admits to the fact that he was taking Advair at home for chronic lung disease. On his blood work, the white count seems to be within normal range and his chemistry, the GFR is within normal range. Patient's blood sugar is 124. All other chemical parameters are within normal range. Thyroid function is normal. Follow up medically and continue current management. Sanjay Bonilla MD [email or web address]
[2018-09-12] MEDS: Multivitamin With Minerals Tab PO SCH (08:52)
[2018-09-12] MEDS: Divalproex 250 mg DR (BID formulation) PO SCH ×2 (08:52→17:33)
[2018-09-12] MEDS: Fluticasone Nasal 50 mcg/Spray NAS SCH (08:54)
--- NOTE | 2018-09-12 10:13 | PCM.PYCHPN ---
Psychiatric Progress Note - Psychiatric Progress Note Patient seen today, length of contact: 25 min Problems Identified/Issues Discussed: I reviewed recent notes and met with patient at bedside in his room. 1:1 was discontinued on Thursday because his behavior has been calmer and more predicta ble. Prior to that patient attempted to elope multiple times on Thursday. Presently he appears calm and generally remains unaffected by my presence. Patient is oriented to month, year and location. He is aware of being in a psychiatric unit and doesn't believe that he belongs here or needs psychiatric medications. Staff noted patient to be disorganized and delusional yesterday with internal agitation. Also observed laughing and mumbing to himself. He required geodon and ativan prns. Patient is preoccupied and disengaged during my questioning. Though his responses are relevant, they are inconsistent, superficial and not entirely credible. Focus still varies. Patient denies any new discomfort or pain and he doesn't appear to be in any physical distress. Staff noted that patient refused depakote on Thursday since "its a medication for manic people" however he was compliant on Thursday and this morning. His behavior remains unpredictable. Diagnostic Results: bipolar spectrum disorder psychosis nos r/o schizophrenia spectrum disorder r/o schizoaffective d/o r/o PTSD cannabis abuse Medication Change: No Medical Record Reviewed: Yes Mental Status Examination - Cognitive Function Orientation: Person, Place Attention: Poor Concentration: Poor Association: Loose Fund of Knowledge: Poor - Mood Mood: Neutral - Affect Affect: Constricted, Flat - Formal Thought Process Formal Thought Process: Hallucinations, Delusions, Paranoia, Loosening of associations, Circumstantial, Perservation - Suicidal Ideation Suicidal Ideation: No - Homicidal Ideation Homicidal Ideation: No Goal/Treatment Plan - Goal/Treatment Plan Progress Toward Problem(s) and Goals/Treatment Plan: * c/w current tx and plan * Appreciate f/u by Dr. Bonilla on 09/11/18~no new recommendations * Vitals reviewed and noted below: Selected Entries 09/11/18 09/11/18 06:57 20:36 Temperature 97.6 F Pulse Rate 82 93 H Respiratory 20 Rate Blood Pressure 127/64 137/80 * New lab results noted for this weekend below: Laboratory Results - last 24 hr 09/11/18 09/11/18 09/11/18 07:00 07:00 07:00 WBC 6.9 RBC 4.60 Hgb 15.1 Hct 43.2 MCV 93.9 MCH 32.8 MCHC 35.0 RDW 12.7 Plt Count 224 MPV 11.2 H Gran % 49.5 L Lymph % (Auto) 35.9 H [place] % (Auto) 10.3 H Eos % (Auto) 3.9 Baso % (Auto) 0.4 Gran # 3.41 Lymph # (Auto) 2.5 [place] # (Auto) 0.7 H Eos # (Auto) 0.3 Baso # (Auto) 0.03 Sodium 141 Potassium 4.2 Chloride 109 H Carbon Dioxide 23 Anion Gap 14 BUN 17 Creatinine 0.7 L Est GFR ( Amer) > 60 Est GFR (Non-Af Amer) > 60 Random Glucose 124 H Fasting Glucose 124 H Calcium 9.1 Total Bilirubin 0.5 AST 24 ALT 21 Alkaline Phosphatase 71 Total Protein 7.2 Albumin 3.9 Globulin 3.3 Albumin/Globulin Ratio 1.2 Triglycerides 107 Cholesterol 104 L LDL Cholesterol Direct 45 HDL Cholesterol 38 Free T4 1.19 TSH 3rd Generation 1.61
[2018-09-12] MEDS: OLANZapine 5 mg Disintegrating Tab PO SCH ×2 (12:04→21:08)
--- NOTE | 2018-09-12 13:12 | PN ---
DATE: 09/12/2018 LOCATION: Patient is in room 519, bed 1, [facility], formerly [facility]. SUBJECTIVE: Patient was admitted with depression, auditory hallucination. Patient has past history of chronic obstructive lung disease. Patient also has history of gastritis, hepatitis C, peripheral neuropathy. Patient is seen this morning. He is comfortable, answers all questions. PHYSICAL EXAMINATION: VITAL SIGNS: Patient's pulse is 84, blood pressure 114/67, respirations are 20. His O2 sat is 98% on room air. HEENT: Head: Normocephalic. LUNGS: Clear. HEART: Normal sinus rhythm. S1, S2 present. ABDOMEN: Soft. Liver and spleen not palpable. CENTRAL NERVOUS SYSTEM: No focal deficits. MEDICATIONS: Consists of Advair, the patient is getting twice a day. Patient is on Ativan, Depakote, Flonase, Geodon, Keppra, magnesium hydroxide is milk of magnesia for constipation. Patient getting Neurontin, pantoprazole, Singulair, Sonata for sleep. LABORATORY DATA: Patient's blood work: Hemoglobin is 15.1. His latest chemistry: His sugar is 124, his BUN and creatinine are within normal range. His thyroid function studies are normal. ASSESSMENT AND PLAN: He has had treatment for hepatitis C. His virus is cleared from the blood. He was treated in the past by Dr. Real, he is . Sanjay Bonilla MD
[2018-09-12] MEDS: Fluticasone-Salmeterol 250-50mcg Diskus IH SCH (17:37)
--- NOTE | 2018-09-13 04:10 | CON ---
DATE: 09/12/2018 HISTORY OF PRESENT ILLNESS: This is a 68-year-old male came with past medical history of depression, COPD, gastritis, hepatitis C and peripheral neuropathy. Called to evaluate the patient for seizure. Patient is doing well, more stable and comfortable and answers all the questions, not in distress. PHYSICAL EXAMINATION: VITAL SIGNS: Blood pressure 114/67. HEENT: Normocephalic, atraumatic. NECK: Supple. NEUROLOGIC: Alert, awake, orientated x3. No aphasia. Cranial nerves II through XII were tested. Pupils reactive. EOM intact. Visual field full. No facial asymmetry. Tongue midline. Motor examination: Moves all the extremity equally. Tone normal. Deep tendon reflexes 1+. Both plantars are downgoing. Sensory appears intact. Cerebellar, gait normal. MEDICATIONS: On Depakote, Ativan, Flonase, Geodon, Keppra, milk of magnesia for constipation. PLAN: Continue present management. We will follow up. Homer Fox MD
[2018-09-13] MEDS: Fluticasone-Salmeterol 250-50mcg Diskus IH SCH (06:47)
[2018-09-13] MEDS: Pantoprazole 40 mg EC Tab PO SCH (06:47)
--- NOTE | 2018-09-13 08:27 | PN ---
DATE: 09/13/2018 LOCATION: The patient is in [facility], room 519, bed 1. SUBJECTIVE: The patient is a 68-year-old white male. The patient was admitted with auditory hallucinations, depression and the patient has past history of chronic lung disease. The patient also has history of hep C that is treated in the past. Peripheral neuritis. The patient was seen this morning. He is resting. He has no additional complaints. PHYSICAL EXAMINATION: VITAL SIGNS: The pulse is 86, blood pressure 112/72, respirations are 20. HEENT: The patient's examination of the head is normocephalic. NECK: The thyroid is not enlarged. JVP is flat. LUNGS: Trachea central. Breath sounds are vesicular, diminished. No evidence of rhonchi or crepitations. HEART: Normal sinus rhythm. S1, S2 present. No murmurs. ABDOMEN: Soft. Liver and spleen not palpable. 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 All his cranial nerves are intact. The patient's motor, sensory functions are within normal limits excepting that he has complaint of discomfort in his legs secondary to drug-induced peripheral neuropathy. LABORATORY DATA: The hemoglobin is 15.1. The patient's chemistry: The blood sugar is 124. The patient has no liver function test abnormalities noted. ASSESSMENT AND PLAN: We will continue with current management. Medications consist of Advair twice a day, the patient gets Ativan 4 times a day, the patient is on Depakote 250 mg b.i.d., on Flonase daily, the patient is also getting Geodon, Keppra 500 mg b.i.d. The patient also gets gabapentin 100 mg three times a day. The patient's condition is clinically stable medically, but needs psychiatric treatment. Sanjay Bonilla MD
[2018-09-13] MEDS: OLANZapine 5 mg Disintegrating Tab PO SCH ×4 (08:57→21:45)
[2018-09-13] MEDS: Divalproex 250 mg DR (BID formulation) PO SCH ×3 (08:57→21:45)
[2018-09-13] MEDS: Multivitamin With Minerals Tab PO SCH (08:57)
[2018-09-13] MEDS: Fluticasone Nasal 50 mcg/Spray NAS SCH (08:58)
--- NOTE | 2018-09-13 14:12 | PCM.PYCHPN ---
Psychiatric Progress Note - Psychiatric Progress Note Patient seen today, length of contact: 30min Patient Chief Complaint: "I know for sure I was poisoned, I have my own reasons to feel this way..." Problems Identified/Issues Discussed: Suicide/ homicide prevention, past psychiatric h/o, current psychiatric symptoms, medical problems, risk/benefits and alternatives of medications, medications compliance, coping strategies, substance abuse h/o, relapse prevention, importance of follow up with psychiatrist and therapist, discharge plan. Medical Problems: Hep C peripheral Neuritis Diagnostic Results: 09/11/18 07:00 09/11/18 07:00 Lab Results 09/11/18 07:00: WBC 6.9, RBC 4.60, Hgb 15.1, Hct 43.2, MCV 93.9, MCH 32.8, MCHC 35.0, RDW 12.7, Plt Count 224, MPV 11.2 H, Gran % 49.5 L, Lymph % (Auto) 35.9 H, [place] % (Auto) 10.3 H, Eos % (Auto) 3.9, Baso % (Auto) 0.4, Gran # 3.41, Lymph # (Auto) 2.5, [place] # (Auto) 0.7 H, Eos # (Auto) 0.3, Baso # (Auto) 0.03 09/11/18 07:00: RPR Nonreactive 09/11/18 07:00: Free T4 1.19, TSH 3rd Generation 1.61 09/11/18 07:00: Sodium 141, Potassium 4.2, Chloride 109 H, Carbon Dioxide 23, Anion Gap 14, BUN 17, Creatinine 0.7 L, Est GFR ( Amer) > 60, Est GFR (Non-Af Amer) > 60, Random Glucose 124 H, Fasting Glucose 124 H, Calcium 9.1, Total Bilirubin 0.5, AST 24, ALT 21, Alkaline Phosphatase 71, Total Protein 7.2, Albumin 3.9, Globulin 3.3, Albumin/Globulin Ratio 1.2, Triglycerides 107, Cholesterol 104 L, LDL Cholesterol Direct 45, HDL Cholesterol 38 09/10/18 05:00: Sodium 136, Potassium 4.1, Chloride 103, Carbon Dioxide 25, Anion Gap 13, BUN 17, Creatinine 0.7 L, Est GFR ( Amer) > 60, Est GFR (Non-Af Amer) > 60, Random Glucose 108, Calcium 9.1, Phosphorus 3.4, Magnesium 2.0, Total Bilirubin 0.5, AST 26, ALT 26, Alkaline Phosphatase 81, Lactate Dehydrogenase 482, Total Creatine Kinase 90, Troponin I 0.03 D, Total Protein 7.5, Albumin 4.1, Globulin 3.5, Albumin/Globulin Ratio 1.2 09/10/18 04:34: Urine Opiates Screen Negative, Urine Methadone Screen Negative, Ur Barbiturates Screen Negative, Ur Phencyclidine Scrn Negative, Ur Amphetamines Screen Negative, U Benzodiazepines Scrn Negative, U Oth Cocaine Metabols Negative, U Cannabinoids Screen Positive H 09/10/18 04:34: Urine Color Yellow, Urine Appearance Clear, Urine pH 6.5, Ur Specific [place] 1.015, Urine Protein Negative, Urine Glucose (UA) Negative, Urine Ketones Negative, Urine Blood Negative, Urine Nitrate Negative, Urine Bilirubin Negative, Urine Urobilinogen 4.0 H, Ur Leukocyte Esterase Negative 09/10/18 03:50: Salicylates < 1 L, Acetaminophen < 10.0 L 09/10/18 03:50: TSH 3rd Generation 1.80, Alcohol, Quantitative < 10 09/10/18 03:50: Ammonia 13 09/10/18 03:50: PT 12.8 H, INR 1.12, APTT 30.4 09/10/18 03:50: WBC 8.6 D, RBC 4.62, Hgb 15.2, Hct 43.3, MCV 93.7, MCH 32.9, MCHC 35.1, RDW 12.5, Plt Count 225, MPV 11.2 H, Gran % 60.1, Lymph % (Auto) 28.0, [place] % (Auto) 9.0 H, Eos % (Auto) 2.7, Baso % (Auto) 0.2, Gran # 5.14, Lymph # (Auto) 2.4, [place] # (Auto) 0.8 H, Eos # (Auto) 0.2, Baso # (Auto) 0.02 09/10/18 02:36: POC Glucose (mg/dL) 134 H Vital Signs Temp Pulse Resp BP Pulse Ox 09/13/18 07:21 97.7 F 86 20 112/72 09/12/18 15:00 91 H 18 126/68 09/12/18 07:35 97.9 F 84 20 114/67 09/11/18 20:36 93 H 137/80 09/11/18 06:57 97.6 F 82 20 127/64 09/11/18 01:00 93 H 137/80 09/10/18 16:00 75 121/59 L 09/10/18 12:00 20 09/10/18 11:26 97.1 F L 78 20 118/68 09/10/18 10:15 98.0 F 72 18 127/78 99 09/10/18 07:05 98.0 F 81 18 111/80 97 09/10/18 06:10 75 18 125/67 99 09/10/18 04:55 74 18 137/69 97 09/10/18 04:21 98 F 71 18 101/66 97 09/10/18 03:56 98 F 76 18 109/72 96 DSM 5 Symptoms Update: shortly patient is a 68 year old male, whose past medical history includes schizoaffective disorder, possible PTSD, multiple psychiatric admissions in the past, chronic noncompliance with the medications and follow up appointments, patient under care or Dr. 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 Patient was seen and examined at the treatment team meeting, pt presented better from the medical standpoint, but pt was disorganized, paranoid, delusional, was talking about corrupted police, was talking that people tried to poison him in the community because he was related to [place] Police. then all of a sudden pt said "who is psychiatrist here, what your findings are?". pt is i rritable/grandiose/delusional. pt over the weekend 1:1 was d/c because pt did not try to elope was compliant with unit rules and regulations. as per staff pt was observed laughing and mumbling to himself, required PRN meds. His behavior/impulses remain unpredictable. Diagnostic Results: bipolar spectrum disorder psychosis nos r/o schizophrenia spectrum disorder r/o schizoaffective d/o r/o PTSD cannabis abuse Medication Change: Yes (zyprexa increased) Medical Record Reviewed: Yes Consults ordered or reviewed: medical consult appreciated neurology consult appreciated Mental Status Examination - Cognitive Function Orientation: Person, Place Attention: Poor Concentration: Poor Association: Loose Fund of Knowledge: Poor - Mood Mood: Neutral - Affect Affect: Constricted, Flat - Formal Thought Process Formal Thought Process: Hallucinations, Delusions, Paranoia, Loosening of associations, Circumstantial, Perservation - Suicidal Ideation Suicidal Ideation: No - Homicidal Ideation Homicidal Ideation: No Goal/Treatment Plan - Goal/Treatment Plan Need for Continued Stay: Remain at risks for inpatient hospitalization, Severe depression anxiety, Discharge may exacerbated symptoms, Severe functional impairment Progress Toward Problem(s) and Goals/Treatment Plan: Milieu/structure/supportive therapy Medical consult will be called Neurology consult was called CT of the head showed generalized atrophy SW consultation for discharge plan and social issues Med management pharmacy was contacted, see HPI Zyprexa 5 mg twice a day and hs for psychosis Depakote 250 twice a day and hs for mood stabilization PRN meds Family involvement Follow up on labs Will monitor closely Pt was educated about risk/benefits and alternatives of medications, coping strategies (safety plan, suicide prevention), relapse prevention, importance of follow up with psychiatrist and therapist, stay away from drugs/alcohol/smoking Estimated Date of D/C: 09/20/18
[2018-09-14] MEDS: Pantoprazole 40 mg EC Tab PO SCH (07:10)
[2018-09-14] MEDS: Fluticasone-Salmeterol 250-50mcg Diskus IH SCH ×3 (07:13→17:37)
[2018-09-14] MEDS: Divalproex 250 mg DR (BID formulation) PO SCH ×3 (09:18→21:18)
[2018-09-14] MEDS: Multivitamin With Minerals Tab PO SCH (09:18)
[2018-09-14] MEDS: OLANZapine 5 mg Disintegrating Tab PO SCH ×3 (09:18→21:19)
[2018-09-14] MEDS: Fluticasone Nasal 50 mcg/Spray NAS SCH (09:21)
--- NOTE | 2018-09-14 11:34 | PN ---
DATE: 09/14/2018 LOCATION: The patient is in [facility] Unit. He is in 519, bed 1. SUBJECTIVE: The patient is a 68-year-old white male. He was admitted with depression, auditory hallucination. Patient has been actively treated for his mental state. Patient has history of chronic lung disease. Patient has history of cerebrovascular insufficiency. Patient has history of gastritis. He has been treated for hepatitis C and patient is in remission. PHYSICAL EXAMINATION: VITAL SIGNS: This morning, his pulse is 69, blood pressure 121/74, respirations are 20. LUNGS: Clear. HEART: Normal sinus rhythm. ABDOMEN: Soft. Liver and spleen not palpable. CENTRAL NERVOUS SYSTEM: No focal deficit. The patient denies any complaints at this time but today he states, he is depressed and he does not hear any voices anymore at this point. MEDICATIONS: His list of medication consists of Advair b.i.d. Patient is on Ativan 2 mg every 6 hours. Patient is on Depakote 250 mg b.i.d. and 250 mg at night. Patient is on Flonase for nasal allergy. Patient gets Geodon for agitation. He is on Keppra 500 mg b.i.d., Maalox for gastritis, gabapentin 100 mg three times a day for peripheral neuritis, pantoprazole 40 mg for gastritis and reflux. He is on Singulair 10 mg daily, Sonata 5 mg at bedtime. LABORATORY DATA: His blood work is same as it was done on 09/11/2018 and there is no significant change. His differential shows granulocyte count of 50% and he has monocytes, which probably represents mildly infection. PLAN: We will continue current management. We will follow up medically. Sanjay Bonilla MD
--- NOTE | 2018-09-14 16:10 | PCM.PYCHPN ---
Psychiatric Progress Note - Psychiatric Progress Note Patient seen today, length of contact: 30min Patient Chief Complaint: "I know for sure I was poisoned" Problems Identified/Issues Discussed: Suicide/ homicide prevention, past psychiatric h/o, current psychiatric symptoms , medical problems, risk/benefits and alternatives of medications, medications compliance, coping strategies, substance abuse h/o, relapse prevention, importance of follow up with psychiatrist and therapist, discharge plan. Medical Problems: Hep C peripheral Neuritis Diagnostic Results: 09/11/18 07:00 09/11/18 07:00 Lab Results 09/11/18 07:00: WBC 6.9, RBC 4.60, Hgb 15.1, Hct 43.2, MCV 93.9, MCH 32.8, MCHC 35.0, RDW 12.7, Plt Count 224, MPV 11.2 H, Gran % 49.5 L, Lymph % (Auto) 35.9 H, [place] % (Auto) 10.3 H, Eos % (Auto) 3.9, Baso % (Auto) 0.4, Gran # 3.41, Lymph # (Auto) 2.5, [place] # (Auto) 0.7 H, Eos # (Auto) 0.3, Baso # (Auto) 0.03 09/11/18 07:00: RPR Nonreactive 09/11/18 07:00: Free T4 1.19, TSH 3rd Generation 1.61 09/11/18 07:00: Sodium 141, Potassium 4.2, Chloride 109 H, Carbon Dioxide 23, Anion Gap 14, BUN 17, Creatinine 0.7 L, Est GFR ( Amer) > 60, Est GFR (Non-Af Amer) > 60, Random Glucose 124 H, Fasting Glucose 124 H, Calcium 9.1, Total Bilirubin 0.5, AST 24, ALT 21, Alkaline Phosphatase 71, Total Protein 7.2, Albumin 3.9, Globulin 3.3, Albumin/Globulin Ratio 1.2, Triglycerides 107, Cholesterol 104 L, LDL Cholesterol Direct 45, HDL Cholesterol 38 09/10/18 05:00: Sodium 136, Potassium 4.1, Chloride 103, Carbon Dioxide 25, Anion Gap 13, BUN 17, Creatinine 0.7 L, Est GFR ( Amer) > 60, Est GFR (Non-Af Amer) > 60, Random Glucose 108, Calcium 9.1, Phosphorus 3.4, Magnesium 2.0, Total Bilirubin 0.5, AST 26, ALT 26, Alkaline Phosphatase 81, Lactate Dehydrogenase 482, Total Creatine Kinase 90, Troponin I 0.03 D, Total Protein 7.5, Albumin 4.1, Globulin 3.5, Albumin/Globulin Ratio 1.2 09/10/18 04:34: Urine Opiates Screen Negative, Urine Methadone Screen Negative, Ur Barbiturates Screen Negative, Ur Phencyclidine Scrn Negative, Ur Amphetamines Screen Negative, U Benzodiazepines Scrn Negative, U Oth Cocaine Metabols Negative, U Cannabinoids Screen Positive H 09/10/18 04:34: Urine Color Yellow, Urine Appearance Clear, Urine pH 6.5, Ur Specific [place] 1.015, Urine Protein Negative, Urine Glucose (UA) Negative, Urine Ketones Negative, Urine Blood Negative, Urine Nitrate Negative, Urine Bilirubin Negative, Urine Urobilinogen 4.0 H, Ur Leukocyte Esterase Negative 09/10/18 03:50: Salicylates < 1 L, Acetaminophen < 10.0 L 09/10/18 03:50: TSH 3rd Generation 1.80, Alcohol, Quantitative < 10 09/10/18 03:50: Ammonia 13 09/10/18 03:50: PT 12.8 H, INR 1.12, APTT 30.4 09/10/18 03:50: WBC 8.6 D, RBC 4.62, Hgb 15.2, Hct 43.3, MCV 93.7, MCH 32.9, MCHC 35.1, RDW 12.5, Plt Count 225, MPV 11.2 H, Gran % 60.1, Lymph % (Auto) 28.0, [place] % (Auto) 9.0 H, Eos % (Auto) 2.7, Baso % (Auto) 0.2, Gran # 5.14, Lymph # (Auto) 2.4, [place] # (Auto) 0.8 H, Eos # (Auto) 0.2, Baso # (Auto) 0.02 09/10/18 02:36: POC Glucose (mg/dL) 134 H Vital Signs Temp Pulse Resp BP Pulse Ox 09/13/18 07:21 97.7 F 86 20 112/72 09/12/18 15:00 91 H 18 126/68 09/12/18 07:35 97.9 F 84 20 114/67 09/11/18 20:36 93 H 137/80 09/11/18 06:57 97.6 F 82 20 127/64 09/11/18 01:00 93 H 137/80 09/10/18 16:00 75 121/59 L 09/10/18 12:00 20 09/10/18 11:26 97.1 F L 78 20 118/68 09/10/18 10:15 98.0 F 72 18 127/78 99 09/10/18 07:05 98.0 F 81 18 111/80 97 09/10/18 06:10 75 18 125/67 99 09/10/18 04:55 74 18 137/69 97 09/10/18 04:21 98 F 71 18 101/66 97 09/10/18 03:56 98 F 76 18 109/72 96 DSM 5 Symptoms Update: shortly patient is a 68 year old male, whose past medical history includes schizoaffective disorder, possible PTSD, multiple psychiatric admissions in the past, chronic noncompliance with the medications and follow up appointments, patient under care or Dr. 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 Patient was seen and examined in his room with medical students, pt presented better from the medical standpoint, but pt was disorganized, paranoid, delusionaland grandiose. As per nursing staff pt was observed laughing and mumbling to himself, required PRN meds. His behavior/impulses remain unpredictable. collaterals from family was obtained by social media manager, please see notes for more detailed information. pt was dx with early dementia as per , pt was seen by but pt was noncompliant with meds. Diagnostic Results: bipolar spectrum disorder psychosis nos r/o schizophrenia spectrum disorder r/o schizoaffective d/o r/o PTSD cannabis abuse Medication Change: Yes (zyprexa increased yesterday) Medical Record Reviewed: Yes Consults ordered or reviewed: medical consult appreciated neurology consult appreciated Mental Status Examination - Cognitive Function Orientation: Person, Place Attention: Poor Concentration: Poor Association: Loose Fund of Knowledge: Poor - Mood Mood: Neutral - Affect Affect: Constricted, Flat - Formal Thought Process Formal Thought Process: Hallucinations, Delusions, Paranoia, Loosening of associations, Circumstantial, Perservation - Suicidal Ideation Suicidal Ideation: No - Homicidal Ideation Homicidal Ideation: No Goal/Treatment Plan - Goal/Treatment Plan Need for Continued Stay: Remain at risks for inpatient hospitalization, Severe depression anxiety, Discharge may exacerbated symptoms, Severe functional impairment Progress Toward Problem(s) and Goals/Treatment Plan: Milieu/structure/supportive therapy Medical consult will be called Neurology consult was called CT of the head showed generalized atrophy SW consultation for discharge plan and social issues Med management pharmacy was contacted, see HPI Zyprexa 5 mg twice a day and hs for psychosis Depakote 250 twice a day and hs for mood stabilization PRN meds Family involvement Follow up on labs Will monitor closely Pt was educated about risk/benefits and alternatives of medications, coping strategies (safety plan, suicide prevention), relapse prevention, importance of follow up with psychiatrist and therapist, stay away from drugs/alcohol/smoking Estimated Date of D/C: 09/20/18
[2018-09-15] MEDS: Pantoprazole 40 mg EC Tab PO SCH (06:37)
[2018-09-15] MEDS: Fluticasone-Salmeterol 250-50mcg Diskus IH SCH ×2 (06:37→17:59)
--- NOTE | 2018-09-15 08:09 | PN ---
DATE: 09/15/2018 LOCATION: The patient is in [facility]. SUBJECTIVE: This is a 68-year-old white male. The patient was admitted with auditory hallucination, depression. The patient has past history of hepatitis C treated. The patient also has a history of chronic lung disease, peripheral neuritis. The patient is seen this morning, ambulating. He feels better, he says. PHYSICAL EXAMINATION: VITAL SIGNS: Pulse is 92, blood pressure 136/78, respirations 20, O2 sat is 98% on room air, temperature is normal. HEENT: The patient's head is normocephalic. His gait is normal. NECK: The thyroid is not enlarged. JVP is flat. Carotid pulses are present bilaterally. LUNGS: Trachea central. Breath sounds are vesicular. No adventitious sounds. HEART: Normal sinus rhythm. S1 and S2 present. No murmurs. ABDOMEN: Soft. Liver and spleen not palpable. 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 The cranial nerves are intact II through XII. 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 MEDICATIONS: The patient's list of medications consist of Advair twice a day. The patient is on Ativan 4 times a day, Depakote twice a day. The patient is on Flonase, Geodon p.r.n. for agitation. The patient is on Keppra 500 mg b.i.d., gabapentin 100 mg three times a day, pantoprazole 40 mg daily, montelukast which is Singulair 10 mg daily, Sonata 5 mg at bedtime for sleep. The patient is also getting Zyprexa 5 mg b.i.d. LABORATORY DATA: The patient's lab work done on 09/11/2018, the blood sugar was 124. BUN and creatinine are within normal range. His cholesterol is . The patient is currently not on any cholesterol medication. ASSESSMENT AND PLAN: We will continue medical management. Follow up with psychiatrist. Sanjay Bonilla MD [facility] # [id number]
[2018-09-15] MEDS: OLANZapine 5 mg Disintegrating Tab PO SCH ×2 (08:34→22:02)
[2018-09-15] MEDS: Multivitamin With Minerals Tab PO SCH (08:34)
[2018-09-15] MEDS: Divalproex 250 mg DR (BID formulation) PO SCH ×2 (08:34→22:02)
[2018-09-15] MEDS: Fluticasone Nasal 50 mcg/Spray NAS SCH (08:35)
--- NOTE | 2018-09-15 15:57 | PCM.PYCHPN ---
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 Medical Problems: Hep C peripheral Neuritis Diagnostic Results: 09/11/18 07:00 09/11/18 07:00 Lab Results 09/11/18 07:00: WBC 6.9, RBC 4.60, Hgb 15.1, Hct 43.2, MCV 93.9, MCH 32.8, MCHC 35.0, RDW 12.7, Plt Count 224, MPV 11.2 H, Gran % 49.5 L, Lymph % (Auto) 35.9 H, Wilkinson % (Auto) 10.3 H, Eos % (Auto) 3.9, Baso % (Auto) 0.4, Gran # 3.41, Lymph # (Auto) 2.5, Wilkinson # (Auto) 0.7 H, Eos # (Auto) 0.3, Baso # (Auto) 0.03 09/11/18 07:00: RPR Nonreactive 09/11/18 07:00: Free T4 1.19, TSH 3rd Generation 1.61 09/11/18 07:00: Sodium 141, Potassium 4.2, Chloride 109 H, Carbon Dioxide 23, Anion Gap 14, BUN 17, Creatinine 0.7 L, Est GFR ( Amer) > 60, Est GFR (Non-Af Amer) > 60, Random Glucose 124 H, Fasting Glucose 124 H, Calcium 9.1, Total Bilirubin 0.5, AST 24, ALT 21, Alkaline Phosphatase 71, Total Protein 7.2, Albumin 3.9, Globulin 3.3, Albumin/Globulin Ratio 1.2, Triglycerides 107, Cholesterol 104 L, LDL Cholesterol Direct 45, HDL Cholesterol 38 09/10/18 05:00: Sodium 136, Potassium 4.1, Chloride 103, Carbon Dioxide 25, Anion Gap 13, BUN 17, Creatinine 0.7 L, Est GFR ( Amer) > 60, Est GFR (Non-Af Amer) > 60, Random Glucose 108, Calcium 9.1, Phosphorus 3.4, Magnesium 2.0, Total Bilirubin 0.5, AST 26, ALT 26, Alkaline Phosphatase 81, Lactate Dehydrogenase 482, Total Creatine Kinase 90, Troponin I 0.03 D, Total Protein 7.5, Albumin 4.1, Globulin 3.5, Albumin/Globulin Ratio 1.2 09/10/18 04:34: Urine Opiates Screen Negative, Urine Methadone Screen Negative, Ur Barbiturates Screen Negative, Ur Phencyclidine Scrn Negative, Ur Amphetamines Screen Negative, U Benzodiazepines Scrn Negative, U Oth Cocaine Metabols Negative, U Cannabinoids Screen Positive H 09/10/18 04:34: Urine Color Yellow, Urine Appearance Clear, Urine pH 6.5, Ur Specific [place] 1.015, Urine Protein Negative, Urine Glucose (UA) Negative, Urine Ketones Negative, Urine Blood Negative, Urine Nitrate Negative, Urine Bilirubin Negative, Urine Urobilinogen 4.0 H, Ur Leukocyte Esterase Negative 09/10/18 03:50: Salicylates < 1 L, Acetaminophen < 10.0 L 09/10/18 03:50: TSH 3rd Generation 1.80, Alcohol, Quantitative < 10 09/10/18 03:50: Ammonia 13 09/10/18 03:50: PT 12.8 H, INR 1.12, APTT 30.4 09/10/18 03:50: WBC 8.6 D, RBC 4.62, Hgb 15.2, Hct 43.3, MCV 93.7, MCH 32.9, MCHC 35.1, RDW 12.5, Plt Count 225, MPV 11.2 H, Gran % 60.1, Lymph % (Auto) 28.0, Wilkinson % (Auto) 9.0 H, Eos % (Auto) 2.7, Baso % (Auto) 0.2, Gran # 5.14, Lymph # (Auto) 2.4, Wilkinson # (Auto) 0.8 H, Eos # (Auto) 0.2, Baso # (Auto) 0.02 09/10/18 02:36: POC Glucose (mg/dL) 134 H Vital Signs Temp Pulse Resp BP Pulse Ox 09/13/18 07:21 97.7 F 86 20 112/72 09/12/18 15:00 91 H 18 126/68 09/12/18 07:35 97.9 F 84 20 114/67 09/11/18 20:36 93 H 137/80 09/11/18 06:57 97.6 F 82 20 127/64 09/11/18 01:00 93 H 137/80 09/10/18 16:00 75 121/59 L 09/10/18 12:00 20 09/10/18 11:26 97.1 F L 78 20 118/68 09/10/18 10:15 98.0 F 72 18 127/78 99 09/10/18 07:05 98.0 F 81 18 111/80 97 09/10/18 06:10 75 18 125/67 99 09/10/18 04:55 74 18 137/69 97 09/10/18 04:21 98 F 71 18 101/66 97 09/10/18 03:56 98 F 76 18 109/72 96 DSM 5 Symptoms Update: shortly patient is a 68 year old male, whose past medical history includes schizoaffective disorder, possible PTSD, multiple psychiatric admissions in the past, chronic noncompliance with the medications and follow up appointments, patient under care or Dr. Lc Savage (local psychiatrist), pt was brought in by police after being found wandering on the streets, acting bizarre, disorganized, during the PES evaluation pt remembered this medical underwriter from previous admission, signed consent for treatment, had capacity to do so. 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 pt presented better from the medical standpoint. As per nursing staff pt was observed laughing and mumbling to himself, required PRN meds. His behavior/impulses remain unpredictable. collaterals from family was obtained by social worker masters, please see notes for more detailed information. pt was dx with early dementia as per , pt was seen by but pt was noncompliant with meds. Diagnostic Results: bipolar spectrum disorder psychosis nos r/o schizophrenia spectrum disorder r/o schizoaffective d/o r/o PTSD cannabis abuse Medication Change: Yes (zyprexa increased yesterday) Medical Record Reviewed: Yes Mental Status Examination - Cognitive Function Orientation: Person, Place Attention: Poor Concentration: Poor Association: Loose Fund of Knowledge: Poor - Mood Mood: Neutral - Affect Affect: Constricted, Flat - Formal Thought Process Formal Thought Process: Hallucinations, Delusions, Paranoia, Loosening of associations, Circumstantial, Perservation - Suicidal Ideation Suicidal Ideation: No - Homicidal Ideation Homicidal Ideation: No Goal/Treatment Plan - Goal/Treatment Plan Need for Continued Stay: Remain at risks for inpatient hospitalization, Severe depression anxiety, Discharge may exacerbated symptoms, Severe functional impairment Progress Toward Problem(s) and Goals/Treatment Plan: Milieu/structure/supportive therapy Medical consult will be called Neurology consult was called CT of the head showed generalized atrophy SW consultation for discharge plan and social issues Med management pharmacy was contacted, see HPI Zyprexa 5 mg twice a day and hs for psychosis Depakote 500 twice a day for mood stabilization PRN meds Family involvement Follow up on labs Will monitor closely Pt was educated about risk/benefits and alternatives of medications, coping strategies (safety plan, suicide prevention), relapse prevention, importance of follow up with psychiatrist and therapist, stay away from drugs/alcohol/smoking Estimated Date of D/C: 09/20/18
[2018-09-16] MEDS: Fluticasone Nasal 50 mcg/Spray NAS SCH (08:51)
[2018-09-16] MEDS: Fluticasone-Salmeterol 250-50mcg Diskus IH SCH ×2 (08:52→18:45)
[2018-09-16] MEDS: Divalproex 250 mg DR (BID formulation) PO SCH ×4 (08:52→22:13)
[2018-09-16] MEDS: Multivitamin With Minerals Tab PO SCH ×2 (08:53→09:46)
[2018-09-16] MEDS: Pantoprazole 40 mg EC Tab PO SCH ×2 (08:53→09:46)
[2018-09-16] MEDS: OLANZapine 5 mg Disintegrating Tab PO SCH ×5 (08:54→22:13)
--- NOTE | 2018-09-16 16:29 | PCM.PYCHPN ---
Psychiatric Progress Note - Psychiatric Progress Note Patient seen today, length of contact: 30min Patient Chief Complaint: "I told you I am going home today", pt is delusional, no d/c was scheduled for today. Problems Identified/Issues Discussed: Suicide/ homicide prevention, past psychiatric h/o, current psychiatric symptoms, medical problems, risk/benefits and alternatives of medications, medications compliance, coping strategies, substance abuse h/o, relapse preventi on, importance of follow up with psychiatrist and therapist, discharge plan. Medical Problems: Hep C peripheral Neuritis Diagnostic Results: 09/11/18 07:00 09/11/18 07:00 Lab Results 09/11/18 07:00: WBC 6.9, RBC 4.60, Hgb 15.1, Hct 43.2, MCV 93.9, MCH 32.8, MCHC 35.0, RDW 12.7, Plt Count 224, MPV 11.2 H, Gran % 49.5 L, Lymph % (Auto) 35.9 H, [place] % (Auto) 10.3 H, Eos % (Auto) 3.9, Baso % (Auto) 0.4, Gran # 3.41, Lymph # (Auto) 2.5, [place] # (Auto) 0.7 H, Eos # (Auto) 0.3, Baso # (Auto) 0.03 09/11/18 07:00: RPR Nonreactive 09/11/18 07:00: Free T4 1.19, TSH 3rd Generation 1.61 09/11/18 07:00: Sodium 141, Potassium 4.2, Chloride 109 H, Carbon Dioxide 23, Anion Gap 14, BUN 17, Creatinine 0.7 L, Est GFR ( Amer) > 60, Est GFR (Non-Af Amer) > 60, Random Glucose 124 H, Fasting Glucose 124 H, Calcium 9.1, Total Bilirubin 0.5, AST 24, ALT 21, Alkaline Phosphatase 71, Total Protein 7.2, Albumin 3.9, Globulin 3.3, Albumin/Globulin Ratio 1.2, Triglycerides 107, Cholesterol 104 L, LDL Cholesterol Direct 45, HDL Cholesterol 38 09/10/18 05:00: Sodium 136, Potassium 4.1, Chloride 103, Carbon Dioxide 25, Anion Gap 13, BUN 17, Creatinine 0.7 L, Est GFR ( Amer) > 60, Est GFR (Non-Af Amer) > 60, Random Glucose 108, Calcium 9.1, Phosphorus 3.4, Magnesium 2.0, Total Bilirubin 0.5, AST 26, ALT 26, Alkaline Phosphatase 81, Lactate Dehydrogenase 482, Total Creatine Kinase 90, Troponin I 0.03 D, Total Protein 7.5, Albumin 4.1, Globulin 3.5, Albumin/Globulin Ratio 1.2 09/10/18 04:34: Urine Opiates Screen Negative, Urine Methadone Screen Negative, Ur Barbiturates Screen Negative, Ur Phencyclidine Scrn Negative, Ur Amphetamines Screen Negative, U Benzodiazepines Scrn Negative, U Oth Cocaine Metabols Ne gative, U Cannabinoids Screen Positive H 09/10/18 04:34: Urine Color Yellow, Urine Appearance Clear, Urine pH 6.5, Ur Specific [place] 1.015, Urine Protein Negative, Urine Glucose (UA) Negative, Urine Ketones Negative, Urine Blood Negative, Urine Nitrate Negative, Urine Bili fernandez Negative, Urine Urobilinogen 4.0 H, Ur Leukocyte Esterase Negative 09/10/18 03:50: Salicylates < 1 L, Acetaminophen < 10.0 L 09/10/18 03:50: TSH 3rd Generation 1.80, Alcohol, Quantitative < 10 09/10/18 03:50: Ammonia 13 09/10/18 03:50: PT 12.8 H, INR 1.12, APTT 30.4 09/10/18 03:50: WBC 8.6 D, RBC 4.62, Hgb 15.2, Hct 43.3, MCV 93.7, MCH 32.9, MCHC 35.1, RDW 12.5, Plt Count 225, MPV 11.2 H, Gran % 60.1, Lymph % (Auto) 28.0, [place] % (Auto) 9.0 H, Eos % (Auto) 2.7, Baso % (Auto) 0.2, Gran # 5.14, Lymph # (Auto) 2.4, [place] # (Auto) 0.8 H, Eos # (Auto) 0.2, Baso # (Auto) 0.02 09/10/18 02:36: POC Glucose (mg/dL) 134 H Vital Signs Temp Pulse Resp BP Pulse Ox 09/13/18 07:21 97.7 F 86 20 112/72 09/12/18 15:00 91 H 18 126/68 09/12/18 07:35 97.9 F 84 20 114/67 09/11/18 20:36 93 H 137/80 09/11/18 06:57 97.6 F 82 20 127/64 09/11/18 01:00 93 H 137/80 09/10/18 16:00 75 121/59 L 09/10/18 12:00 20 09/10/18 11:26 97.1 F L 78 20 118/68 09/10/18 10:15 98.0 F 72 18 127/78 99 09/10/18 07:05 98.0 F 81 18 111/80 97 09/10/18 06:10 75 18 125/67 99 09/10/18 04:55 74 18 137/69 97 09/10/18 04:21 98 F 71 18 101/66 97 09/10/18 03:56 98 F 76 18 109/72 96 DSM 5 Symptoms Update: shortly patient is a 68 year old male, whose past medical history includes schizoaffective disorder, possible PTSD, multiple psychiatric admissions in the past, chronic noncompliance with the medications and follow up appointments, patient under care or Dr. Lc Savage (local psychiatrist), pt was brought in by police after being found wandering on the streets, acting bizarre, disorganized, during the PES evaluation pt remembered this feature writer from previous admission, signed consent for treatment, had capacity to do so. Patient was seen and examined at the dinning area, pt was annoyed, irritable, pt started to refuse medications, staff was educated to approach pt for a few times and make sure pt is compliant with meds. pt's is coming for the meeting tomorrow. 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 pt presented better from the medical standpoint. As per nursing staff pt was observed laughing and mumbling to himself. His behavior/impulses remain unpredictable. collaterals from family was obtained by social work faculty member, please see notes for more detailed information. pt was dx with early dementia as per , pt was seen by but pt was noncompliant with meds. Diagnostic Results: bipolar spectrum disorder psychosis nos r/o schizophrenia spectrum disorder r/o schizoaffective d/o r/o PTSD cannabis abuse Medication Change: No (pt was refusing meds) Medical Record Reviewed: Yes Mental Status Examination - Cognitive Function Orientation: Person, Place Attention: Poor Concentration: Poor Association: Loose Fund of Knowledge: Poor - Mood Mood: Neutral - Affect Affect: Constricted, Flat - Formal Thought Process Formal Thought Process: Hallucinations, Delusions, Paranoia, Loosening of associations, Circumstantial, Perservation - Suicidal Ideation Suicidal Ideation: No - Homicidal Ideation Homicidal Ideation: No Goal/Treatment Plan - Goal/Treatment Plan Need for Continued Stay: Remain at risks for inpatient hospitalization, Severe depression anxiety, Discharge may exacerbated symptoms, Severe functional impairment Progress Toward Problem(s) and Goals/Treatment Plan: Milieu/structure/supportive therapy Medical consult will be called Neurology consult was called CT of the head showed generalized atrophy SW consultation for discharge plan and social issues Med management pharmacy was contacted, see HPI Zyprexa 5 mg twice a day and hs for psychosis Depakote 500 twice a day for mood stabilization PRN meds Family involvement Follow up on labs Will monitor closely Pt was educated about risk/benefits and alternatives of medications, coping strategies (safety plan, suicide prevention), relapse prevention, importance of follow up with psychiatrist and therapist, stay away from drugs/alcohol/smoking Family meeting was scheduled for 09/17/2018 Estimated Date of D/C: 09/20/18
--- NOTE | 2018-09-16 16:53 | CP.PCM.PN ---
Subjective - Date & Time of Evaluation Date of Evaluation: 09/16/18 Time of Evaluation: 07:45 - Subjective Subjective: Patient is seen this morning in the behavioral care unit. He denies any new medical complaints. Objective - Vital Signs/Intake and Output Vital Signs (last 24 hours): Temp Pulse Resp BP Pulse Ox 97.5 F L 76 20 121/73 99 09/16/18 07:38 09/16/18 07:38 09/16/18 07:38 09/16/18 07:38 09/10/18 10:15 - Medications Medications: Current Medications Acetaminophen (Tylenol 325mg Tab) 650 mg PO Q4 PRN PRN Reason: Pain, moderate (4-7) Al Hydrox/Mg Hydrox/Simethicone (Maalox Plus 30 Ml) 30 ml PO DAILY PRN PRN Reason: Upset Stomach Divalproex Sodium (Depakote Dr (*Bid*)) 500 mg PO DAILY [facility]; Protocol Last Admin: 09/16/18 09:45 Dose: Not Given Divalproex Sodium (Depakote Dr (*Bid*)) 500 mg PO HS [facility]; Protocol Last Admin: 09/15/18 22:02 Dose: 500 mg Fluticasone Propionate (Flonase) 1 actuation LAURA DAILY [facility] Last Admin: 09/16/18 08:51 Dose: 1 puff Gabapentin (Neurontin) 100 mg PO TID [facility]; Protocol Last Admin: 09/16/18 15:32 Dose: Not Given Levetiracetam (Keppra) 500 mg PO BID [facility] Last Admin: 09/16/18 09:45 Dose: Not Given Lorazepam (Ativan) 2 mg IM Q6 PRN; Protocol PRN Reason: Agitation Lorazepam (Ativan) 2 mg PO Q6H PRN; Protocol PRN Reason: anxiety/agitation Last Admin: 09/14/18 23:43 Dose: 2 mg Magnesium Hydroxide (Milk Of Magnesia) 30 ml PO DAILY PRN PRN Reason: Constipation Montelukast Sodium (Singulair) 10 mg PO DAILY [facility] Last Admin: 09/16/18 09:46 Dose: Not Given Multivitamins/Minerals (Therapeutic-M Tab) 1 tab PO DAILY [facility] Last Admin: 09/16/18 09:46 Dose: Not Given Olanzapine (Zyprexa Zydis) 5 mg PO HS [facility]; Protocol Last Admin: 09/15/18 22:02 Dose: 5 mg Olanzapine (Zyprexa Zydis) 5 mg PO BID JOSELYN; Protocol Last Admin: 09/16/18 09:46 Dose: Not Given Pantoprazole Sodium (Protonix Ec Tab) 40 mg PO 0600 JOSELYN Last Admin: 09/16/18 09:46 Dose: Not Given Fluticasone/Salmeterol (Advair Diskus 250/50) 1 puff IH Q12 JOSELYN Last Admin: 09/16/18 08:52 Dose: 1 puff Zaleplon (Sonata) 5 mg PO HS PRN PRN Reason: Insomnia Last Admin: 09/16/18 00:55 Dose: 5 mg Ziprasidone (Geodon Inj) 20 mg IM Q6H PRN; Protocol PRN Reason: severe agitaiton/psychosis Ziprasidone (Geodon Cap) 20 mg PO Q6H PRN; Protocol PRN Reason: psychosis/agitation Last Admin: 09/10/18 21:14 Dose: 20 mg - Labs Labs: 09/11/18 07:00 09/11/18 07:00 PT 12.8 SECONDS (9.4-12.5) H 09/10/18 03:50 INR 1.12 09/10/18 03:50 APTT 30.4 Seconds (25.1-36.5) 09/10/18 03:50 - Constitutional Appears: No Acute Distress - Head Exam Head Exam: ATRAUMATIC, NORMOCEPHALIC - Respiratory Exam Respiratory Exam: Clear to Ausculation Bilateral, NORMAL BREATHING PATTERN - Cardiovascular Exam Cardiovascular Exam: REGULAR RHYTHM, +S1, +S2 - GI/Abdominal Exam GI & Abdominal Exam: Soft, Normal Bowel Sounds. absent: Tenderness - Neurological Exam Neurological Exam: Alert, Awake, Oriented x3 Assessment and Plan - Assessment and Plan (Free Text) Assessment: Peripheral neuropathy History of Hep C Chronic lung disease Plan: continue respiratory treatment for chronic lung disease continue gabapentin for neuropathy Patient says that he was treated for Hepatitis C as an outpatient continue behavioral treatment as per psychiatry
[2018-09-17] MEDS: Fluticasone-Salmeterol 250-50mcg Diskus IH SCH ×2 (05:53→17:43)
[2018-09-17] MEDS: Pantoprazole 40 mg EC Tab PO SCH (05:54)
[2018-09-17] MEDS: OLANZapine 5 mg Disintegrating Tab PO SCH ×2 (08:45→21:09)
[2018-09-17] MEDS: Fluticasone Nasal 50 mcg/Spray NAS SCH (12:43)
[2018-09-17] MEDS: Divalproex 250 mg DR (BID formulation) PO SCH ×3 (12:43→21:08)
[2018-09-17] MEDS: Multivitamin With Minerals Tab PO SCH (12:44)
--- NOTE | 2018-09-17 14:10 | PN ---
DATE: 09/17/2018 LOCATION: The patient is in room 593, bed 1. SUBJECTIVE: The patient is admitted with history of auditory hallucinations. The patient has the past history of depression. He also has history of chronic lung disease. The patient has gastritis. He also had hepatitis C in the past treated. PHYSICAL EXAMINATION: VITAL SIGNS: His pulse is 74, blood pressure 139/73, and his respirations are 20. HEENT: The patient's head is normocephalic. LUNGS: Clear. HEART: Normal sinus rhythm. ABDOMEN: Soft. Liver and spleen not palpable. CENTRAL NERVOUS SYSTEM: No focal deficits. MEDICATIONS: The patient is on twice a day. The patient is on Ativan 2 mg every six hours, Depakote 500 mg twice a day. The patient is on Keppra 500 mg twice a day, Geodon, for agitation. The patient is on gabapentin 100 mg three times a day. LABORATORY DATA: His blood work done on the , no change. His lymphocyte count is 35,000, granulocyte count is 50,000. His chemistry; blood sugar is 124. BUN and creatinine are within normal range. ASSESSMENT AND PLAN: We will continue the current management and follow up with psych floor. Sanjay Bonilla MD
--- NOTE | 2018-09-17 15:33 | PCM.PYCHPN ---
Psychiatric Progress Note - Psychiatric Progress Note Patient seen today, length of contact: 30min Patient Chief Complaint: "I know that you want to kill me..." Problems Identified/Issues Discussed: Suicide/ homicide prevention, past psychiatric h/o, current psychiatric symp toms, medical problems, risk/benefits and alternatives of medications, medications compliance, coping strategies, substance abuse h/o, relapse prevention, importance of follow up with psychiatrist and therapist, discharge plan. Medical Problems: Hep C peripheral Neuritis Diagnostic Results: 09/11/18 07:00 09/11/18 07:00 Lab Results 09/11/18 07:00: WBC 6.9, RBC 4.60, Hgb 15.1, Hct 43.2, MCV 93.9, MCH 32.8, MCHC 35.0, RDW 12.7, Plt Count 224, MPV 11.2 H, Gran % 49.5 L, Lymph % (Auto) 35.9 H, Roberts % (Auto) 10.3 H, Eos % (Auto) 3.9, Baso % (Auto) 0.4, Gran # 3.41, Lymph # (Auto) 2.5, Roberts # (Auto) 0.7 H, Eos # (Auto) 0.3, Baso # (Auto) 0.03 09/11/18 07:00: RPR Nonreactive 09/11/18 07:00: Free T4 1.19, TSH 3rd Generation 1.61 09/11/18 07:00: Sodium 141, Potassium 4.2, Chloride 109 H, Carbon Dioxide 23, Anion Gap 14, BUN 17, Creatinine 0.7 L, Est GFR ( Amer) > 60, Est GFR (No n-Af Amer) > 60, Random Glucose 124 H, Fasting Glucose 124 H, Calcium 9.1, Total Bilirubin 0.5, AST 24, ALT 21, Alkaline Phosphatase 71, Total Protein 7.2, Albumin 3.9, Globulin 3.3, Albumin/Globulin Ratio 1.2, Triglycerides 107, Cholesterol 104 L, LDL Cholesterol Direct 45, HDL Cholesterol 38 09/10/18 05:00: Sodium 136, Potassium 4.1, Chloride 103, Carbon Dioxide 25, Anion Gap 13, BUN 17, Creatinine 0.7 L, Est GFR ( Amer) > 60, Est GFR (Non-Af Amer) > 60, Random Glucose 108, Calcium 9.1, Phosphorus 3.4, Magnesium 2.0, Total Bilirubin 0.5, AST 26, ALT 26, Alkaline Phosphatase 81, Lactate Dehydrogenase 482, Total Creatine Kinase 90, Troponin I 0.03 D, Total Protein 7.5, Albumin 4.1, Globulin 3.5, Albumin/Globulin Ratio 1.2 09/10/18 04:34: Urine Opiates Screen Negative, Urine Methadone Screen Negative, Ur Barbiturates Screen Negative, Ur Phencyclidine Scrn Negative, Ur Amphetamines Screen Negative, U Benzodiazepines Scrn Negative, U Oth Cocaine Metabols Negative, U Cannabinoids Screen Positive H 09/10/18 04:34: Urine Color Yellow, Urine Appearance Clear, Urine pH 6.5, Ur Specific [place] 1.015, Urine Protein Negative, Urine Glucose (UA) Negative, Urine Ketones Negative, Urine Blood Negative, Urine Nitrate Negative, Urine Bilirubin Negative, Urine Urobilinogen 4.0 H, Ur Leukocyte Esterase Negative 09/10/18 03:50: Salicylates < 1 L, Acetaminophen < 10.0 L 09/10/18 03:50: TSH 3rd Generation 1.80, Alcohol, Quantitative < 10 09/10/18 03:50: Ammonia 13 09/10/18 03:50: PT 12.8 H, INR 1.12, APTT 30.4 09/10/18 03:50: WBC 8.6 D, RBC 4.62, Hgb 15.2, Hct 43.3, MCV 93.7, MCH 32.9, MCHC 35.1, RDW 12.5, Plt Count 225, MPV 11.2 H, Gran % 60.1, Lymph % (Auto) 28.0, Roberts % (Auto) 9.0 H, Eos % (Auto) 2.7, Baso % (Auto) 0.2, Gran # 5.14, Lymph # (Auto) 2.4, Roberts # (Auto) 0.8 H, Eos # (Auto) 0.2, Baso # (Auto) 0.02 09/10/18 02:36: POC Glucose (mg/dL) 134 H Vital Signs Temp Pulse Resp BP Pulse Ox 09/13/18 07:21 97.7 F 86 20 112/72 09/12/18 15:00 91 H 18 126/68 09/12/18 07:35 97.9 F 84 20 114/67 09/11/18 20:36 93 H 137/80 09/11/18 06:57 97.6 F 82 20 127/64 09/11/18 01:00 93 H 137/80 09/10/18 16:00 75 121/59 L 09/10/18 12:00 20 09/10/18 11:26 97.1 F L 78 20 118/68 09/10/18 10:15 98.0 F 72 18 127/78 99 09/10/18 07:05 98.0 F 81 18 111/80 97 09/10/18 06:10 75 18 125/67 99 09/10/18 04:55 74 18 137/69 97 09/10/18 04:21 98 F 71 18 101/66 97 09/10/18 03:56 98 F 76 18 109/72 96 DSM 5 Symptoms Update: shortly patient is a 68 year old male, whose past medical history includes schizoaffective disorder, possible PTSD, multiple psychiatric admissions in the past, chronic noncompliance with the medications and follow up appointments, patient under care or Dr. Lc Savage (local psychiatrist), pt was brought in by police after being found wandering on the streets, acting bizarre, disorganized, during the PES evaluation pt remembered this senior technical writer from previous admission, signed consent for treatment, had capacity to do so. Patient was seen and examined in his room, pt is s/p Pooja MCKEON, pt sleeping, easily aroused pt said that this senior technical writer wants to kill him and poison him, earlier pt needed to be medicated because pt was actively hallucinating saying that he is a part of the major motion picture production. pt was refusing medications, was not sleeping. pt still grandiose, yesterday was offering students to pay off their medical school loans, later on asked students if they checked if loan was paid off, (pt is delusional, no evidence for above statements). family meeting took place with pt's today tx plan was discussed in details. as per pt started to deteriorate with episodes of wondering on the streets started about a month ago, pt's father and brother both committed suicide. pt himself from a very wealthy family pt had h/o PTSD POA was discussed for the future please see notes for more detailed information As per nursing staff pt was observed laughing and mumbling to himself. His behavior/impulses remain unpredictable. collaterals from family was obtained by social service agency director, please see notes for more detailed information. pt was dx with early dementia as per , pt was seen by but pt was noncompliant with meds. Diagnostic Results: bipolar spectrum disorder psychosis nos r/o schizophrenia spectrum disorder r/o schizoaffective d/o r/o PTSD cannabis abuse Medication Change: Yes (zyprexa will be decreased to hs 5mg ) Medical Record Reviewed: Yes Mental Status Examination - Cognitive Function Orientation: Person, Place Attention: Poor Concentration: Poor Association: Loose Fund of Knowledge: Poor - Mood Mood: Neutral - Affect Affect: Constricted, Flat - Formal Thought Process Formal Thought Process: Hallucinations, Delusions, Paranoia, Loosening of associations, Circumstantial, Perservation - Suicidal Ideation Suicidal Ideation: No - Homicidal Ideation Homicidal Ideation: No Goal/Treatment Plan - Goal/Treatment Plan Need for Continued Stay: Remain at risks for inpatient hospitalization, Severe depression anxiety, Discharge may exacerbated symptoms, Severe functional impairment Progress Toward Problem(s) and Goals/Treatment Plan: Milieu/structure/supportive therapy Medical consult will be called Neurology consult was called CT of the head showed generalized atrophy consultation for discharge plan and social issues Med management pharmacy was contacted, see HPI Zyprexa 5 mg hs for psychosis Depakote 500 twice a day for mood stabilization PRN meds Family involvement Follow up on labs Will monitor closely Pt was educated about risk/benefits and alternatives of medications, coping strategies (safety plan, suicide prevention), relapse prevention, importance of follow up with psychiatrist and therapist, stay away from drugs/alcohol/smoking Family meeting /26/2018 Estimated Date of D/C: 09/20/18
[2018-09-18] MEDS: Pantoprazole 40 mg EC Tab PO SCH (06:06)
[2018-09-18] MEDS: Fluticasone-Salmeterol 250-50mcg Diskus IH SCH ×2 (06:06→17:06)
[2018-09-18] MEDS: Divalproex 250 mg DR (BID formulation) PO SCH ×2 (08:25→21:52)
[2018-09-18] MEDS: Multivitamin With Minerals Tab PO SCH (08:30)
[2018-09-18] MEDS: Fluticasone Nasal 50 mcg/Spray NAS SCH (08:31)
--- NOTE | 2018-09-18 11:16 | PCM.PYCHPN ---
Psychiatric Progress Note - Psychiatric Progress Note Patient seen today, length of contact: 30min Problems Identified/Issues Discussed: I reviewed recent notes and met with patient at bedside in his room. He is known to me from prior interviews last weekend. During that time he was disorganized, unpredictable and attempted to elope a number of times. He was notably oriented to month, year, location but not to circumstances during that time. Presently his orientation remains unchanged but impulse control is better and behavior is more predictable. He remains calm and unaffected by my presence--though he is polite and responsive with questioning. He pleasantly denies any new pain, discomfort or concerns except for wanting to go home soon. Staff still observe patient to laugh and mumble to himself at times. He has been paranoid and hallucinating, requiring prns on the unit. Behavior remains unpredictable. Diagnostic Results: bipolar spectrum disorder psychosis nos r/o schizophrenia spectrum disorder r/o schizoaffective d/o r/o PTSD cannabis abuse Medication Change: No ( ) Medical Record Reviewed: Yes Mental Status Examination - Cognitive Function Orientation: Person, Place Attention: Poor Concentration: Poor Association: Loose Fund of Knowledge: Poor - Mood Mood: Neutral - Affect Affect: Constricted, Flat - Formal Thought Process Formal Thought Process: Hallucinations, Delusions, Paranoia, Loosening of associations, Circumstantial, Perservation - Suicidal Ideation Suicidal Ideation: No - Homicidal Ideation Homicidal Ideation: No Goal/Treatment Plan - Goal/Treatment Plan Need for Continued Stay: Remain at risks for inpatient hospitalization, Severe depression anxiety, Discharge may exacerbated symptoms, Severe functional impairment Progress Toward Problem(s) and Goals/Treatment Plan: * c/w current tx and plan * Vitals reviewed and noted below: Selected Entries 09/17/18 09/17/18 07:34 16:43 Temperature 98.2 F Pulse Rate 74 111 H Respiratory 20 Rate Blood Pressure 139/73 142/75 * No new weekend lab results thus far * Prior weekend lab results noted below: Laboratory Results - last 24 hr 09/11/18 09/11/18 09/11/18 07:00 07:00 07:00 WBC 6.9 RBC 4.60 Hgb 15.1 Hct 43.2 MCV 93.9 MCH 32.8 MCHC 35.0 RDW 12.7 Plt Count 224 MPV 11.2 H Gran % 49.5 L Lymph % (Auto) 35.9 H [place] % (Auto) 10.3 H Eos % (Auto) 3.9 Baso % (Auto) 0.4 Gran # 3.41 Lymph # (Auto) 2.5 [place]igg # (Auto) 0.7 H Eos # (Auto) 0.3 Baso # (Auto) 0.03 Sodium 141 Potassium 4.2 Chloride 109 H Carbon Dioxide 23 Anion Gap 14 BUN 17 Creatinine 0.7 L Est GFR ( Amer) > 60 Est GFR (Non-Af Amer) > 60 Random Glucose 124 H Fasting Glucose 124 H Calcium 9.1 Total Bilirubin 0.5 AST 24 ALT 21 Alkaline Phosphatase 71 Total Protein 7.2 Albumin 3.9 Globulin 3.3 Albumin/Globulin Ratio 1.2 Triglycerides 107 Cholesterol 104 L LDL Cholesterol Direct 45 HDL Cholesterol 38 Free T4 1.19 TSH 3rd Generation 1.61 Estimated Date of D/C: 09/20/18
--- NOTE | 2018-09-18 19:57 | CP.PCM.PN ---
Subjective - Date & Time of Evaluation Date of Evaluation: 09/18/18 Time of Evaluation: 08:00 - Subjective Subjective: Patient is in the behavioral care unit. Objective - Vital Signs/Intake and Output Vital Signs (last 24 hours): Temp Pulse Resp BP Pulse Ox 97.6 F 71 20 125/81 99 09/18/18 07:20 09/18/18 16:00 09/18/18 07:20 09/18/18 16:00 09/10/18 10:15 - Medications Medications: Current Medications Acetaminophen (Tylenol 325mg Tab) 650 mg PO Q4 PRN PRN Reason: Pain, moderate (4-7) Last Admin: 09/16/18 22:14 Dose: 650 mg Al Hydrox/Mg Hydrox/Simethicone (Maalox Plus 30 Ml) 30 ml PO DAILY PRN PRN Reason: Upset Stomach Divalproex Sodium (Depakote Dr (*Bid*)) 500 mg PO DAILY [facility]; Protocol Last Admin: 09/18/18 08:25 Dose: Not Given Divalproex Sodium (Depakote Dr (*Bid*)) 500 mg PO HS [facility]; Protocol Last Admin: 09/17/18 21:08 Dose: 500 mg Fluticasone Propionate (Flonase) 1 actuation LAURA DAILY [facility] Last Admin: 09/18/18 08:31 Dose: 1 puff Gabapentin (Neurontin) 100 mg PO TID [facility]; Protocol Last Admin: 09/18/18 17:06 Dose: Not Given Levetiracetam (Keppra) 500 mg PO BID [facility] Last Admin: 09/18/18 16:51 Dose: Not Given Lorazepam (Ativan) 2 mg IM Q6 PRN; Protocol PRN Reason: Agitation Last Admin: 09/17/18 09:35 Dose: 2 mg Lorazepam (Ativan) 2 mg PO Q6H PRN; Protocol PRN Reason: anxiety/agitation Last Admin: 09/17/18 21:08 Dose: 2 mg Magnesium Hydroxide (Milk Of Magnesia) 30 ml PO DAILY PRN PRN Reason: Constipation Montelukast Sodium (Singulair) 10 mg PO DAILY [facility] Last Admin: 09/18/18 08:30 Dose: 10 mg Multivitamins/Minerals (Therapeutic-M Tab) 1 tab PO DAILY [facility] Last Admin: 09/18/18 08:30 Dose: 1 tab Olanzapine (Zyprexa Zydis) 5 mg PO HS [facility]; Protocol Last Admin: 09/17/18 21:09 Dose: 5 mg Pantoprazole Sodium (Protonix Ec Tab) 40 mg PO 0600 [facility] Last Admin: 09/18/18 06:06 Dose: 40 mg Fluticasone/Salmeterol (Advair Diskus 250/50) 1 puff IH Q12 [facility] Last Admin: 09/18/18 17:06 Dose: 1 puff Zaleplon (Sonata) 5 mg PO HS PRN PRN Reason: Insomnia Last Admin: 09/17/18 21:09 Dose: 5 mg Ziprasidone (Geodon Inj) 20 mg IM Q6H PRN; Protocol PRN Reason: severe agitaiton/psychosis Last Admin: 09/17/18 09:37 Dose: 20 mg Ziprasidone (Geodon Cap) 20 mg PO Q6H PRN; Protocol PRN Reason: psychosis/agitation Last Admin: 09/18/18 02:22 Dose: 20 mg - Labs Labs: 09/11/18 07:00 09/11/18 07:00 PT 12.8 SECONDS (9.4-12.5) H 09/10/18 03:50 INR 1.12 09/10/18 03:50 APTT 30.4 Seconds (25.1-36.5) 09/10/18 03:50 - Constitutional Appears: No Acute Distress - Head Exam Head Exam: ATRAUMATIC, NORMOCEPHALIC - Respiratory Exam Respiratory Exam: Clear to Ausculation Bilateral, NORMAL BREATHING PATTERN - Cardiovascular Exam Cardiovascular Exam: REGULAR RHYTHM, +S1, +S2 - GI/Abdominal Exam GI & Abdominal Exam: Soft, Normal Bowel Sounds. absent: Tenderness Assessment and Plan - Assessment and Plan (Free Text) Assessment: COPD Gastritis History of Hepatitis C Plan: continue respiratory treatments Patient says he was treated for Hepatitis C as an outpatient continue treatment with psychiatrist
[2018-09-18] MEDS: OLANZapine 5 mg Disintegrating Tab PO SCH (21:53)
[2018-09-19] MEDS: Pantoprazole 40 mg EC Tab PO SCH (07:27)
[2018-09-19] MEDS: Fluticasone-Salmeterol 250-50mcg Diskus IH SCH ×2 (07:27→18:02)
[2018-09-19] MEDS: Multivitamin With Minerals Tab PO SCH (08:49)
[2018-09-19] MEDS: Fluticasone Nasal 50 mcg/Spray NAS SCH (08:49)
[2018-09-19] MEDS: Divalproex 250 mg DR (BID formulation) PO SCH ×2 (08:49→21:35)
--- NOTE | 2018-09-19 10:57 | PCM.PYCHPN ---
Psychiatric Progress Note - Psychiatric Progress Note Patient seen today, length of contact: 30min Problems Identified/Issues Discussed: I reviewed recent notes and met with patient at bedside in his room again. He is known to me from prior interviews last weekend. During that time he was diso rganized, unpredictable and attempted to elope a number of times. He was notably oriented to month, year, location but not to circumstances during that time. Presently his orientation remains unchanged but impulse control is better and behavior is calmer. He is well groomed and remains superficially pleasant and unaffected by my presence--though he is polite and responsive with questioning. He denies any new pain, discomfort or concerns except for anxiety about being discharged home soon. Staff notes indicate that patient has been behaving as though he wants to elope again and he has been closely observed for any further attempts over the weekend. Prior notes indicate that he has been paranoid and hallucinating over the week and required prns on the unit. There have been no incidences over the weekend thus far. Diagnostic Results: bipolar spectrum disorder psychosis nos r/o schizophrenia spectrum disorder r/o schizoaffective d/o r/o PTSD cannabis abuse Medication Change: No ( ) Medical Record Reviewed: Yes Mental Status Examination - Cognitive Function Orientation: Person, Place Attention: Poor Concentration: Poor Association: Loose Fund of Knowledge: Poor - Mood Mood: Neutral - Affect Affect: Constricted, Flat - Formal Thought Process Formal Thought Process: Hallucinations, Delusions, Paranoia, Loosening of associations, Circumstantial, Perservation - Suicidal Ideation Suicidal Ideation: No - Homicidal Ideation Homicidal Ideation: No Goal/Treatment Plan - Goal/Treatment Plan Need for Continued Stay: Remain at risks for inpatient hospitalization, Severe depression anxiety, Discharge may exacerbated symptoms, Severe functional impairment Progress Toward Problem(s) and Goals/Treatment Plan: * c/w current tx and plan * Appreciate f/u by Dr. Bonilla on 09/18/18 * Vitals reviewed and noted below: Selected Entries 09/18/18 09/18/18 07:20 16:00 Temperature 97.6 F Pulse Rate 75 71 Respiratory 20 Rate Blood Pressure 124/76 125/81 * No new weekend lab results thus far * Prior weekend lab results noted below: Laboratory Results - last 24 hr 09/11/18 09/11/18 09/11/18 07:00 07:00 07:00 WBC 6.9 RBC 4.60 Hgb 15.1 Hct 43.2 MCV 93.9 MCH 32.8 MCHC 35.0 RDW 12.7 Plt Count 224 MPV 11.2 H Gran % 49.5 L Lymph % (Auto) 35.9 H [place] % (Auto) 10.3 H Eos % (Auto) 3.9 Baso % (Auto) 0.4 Gran # 3.41 Lymph # (Auto) 2.5 [place] # (Auto) 0.7 H Eos # (Auto) 0.3 Baso # (Auto) 0.03 Sodium 141 Potassium 4.2 Chloride 109 H Carbon Dioxide 23 Anion Gap 14 BUN 17 Creatinine 0.7 L Est GFR ( Amer) > 60 Est GFR (Non-Af Amer) > 60 Random Glucose 124 H Fasting Glucose 124 H Calcium 9.1 Total Bilirubin 0.5 AST 24 ALT 21 Alkaline Phosphatase 71 Total Protein 7.2 Albumin 3.9 Globulin 3.3 Albumin/Globulin Ratio 1.2 Triglycerides 107 Cholesterol 104 L LDL Cholesterol Direct 45 HDL Cholesterol 38 Free T4 1.19 TSH 3rd Generation 1.61 Estimated Date of D/C: 09/20/18
--- NOTE | 2018-09-19 12:45 | PN ---
DATE: 09/19/2018 LOCATION: The patient is in [facility] Unit, room 519, bed 1. SUBJECTIVE: The patient was admitted with auditory hallucination. The patient had severe depression, associated. He has history of ALLERGY TO CAT. The patient has positive history of hepatitis C. The patient had been treated for that. The patient also has history of peripheral neuritis. He also gets treatment for chronic lung disease. The patient is seen this morning. He is lying down, comfortable, pleasant. PHYSICAL EXAMINATION: VITAL SIGNS: Pulse is 76, blood pressure 120/70, respirations 20, patient's O2 saturation is 98% on room air. LUNGS: Clear. HEART: Normal sinus rhythm. ABDOMEN: Soft. Liver and spleen not palpable. CENTRAL NERVOUS SYSTEM: No focal deficits are noted. Patient is ambulating. MEDICATIONS: His medication list consists of Advair twice a day. Patient is on Ativan. Patient is on Depakote, Flonase, Geodon, Keppra, magnesium hydroxide that is milk of magnesia for constipation. Patient is on Neurontin 100 mg three times a day. PLAN: We will continue current management. Follow up. Sanjay Bonilla MD
[2018-09-19] MEDS: OLANZapine 5 mg Disintegrating Tab PO SCH (21:35)
[2018-09-20] MEDS: Fluticasone-Salmeterol 250-50mcg Diskus IH SCH (06:11)
[2018-09-20] MEDS: Pantoprazole 40 mg EC Tab PO SCH (06:11)
[2018-09-20 07:03] VITALS: BP 128/76; PULSE 64; RESP 19; TEMP 97.7
--- NOTE | 2018-09-20 08:04 | CP.PCM.PN ---
Subjective - Date & Time of Evaluation Date of Evaluation: 09/20/18 Time of Evaluation: 07:30 - Subjective Subjective: Patient is seen this morning in the behavioral care unit. He was admitted with hallucinations and delusions. Objective - Vital Signs/Intake and Output Vital Signs (last 24 hours): Temp Pulse Resp BP Pulse Ox 97.7 F 64 19 128/76 99 09/20/18 07:00 09/20/18 07:00 09/20/18 07:00 09/20/18 07:00 09/10/18 10:15 - Medications Medications: Current Medications Acetaminophen (Tylenol 325mg Tab) 650 mg PO Q4 PRN PRN Reason: Pain, moderate (4-7) Last Admin: 09/16/18 22:14 Dose: 650 mg Al Hydrox/Mg Hydrox/Simethicone (Maalox Plus 30 Ml) 30 ml PO DAILY PRN PRN Reason: Upset Stomach Divalproex Sodium (Depakote Dr (*Bid*)) 500 mg PO DAILY [facility]; Protocol Last Admin: 09/19/18 08:49 Dose: 500 mg Divalproex Sodium (Depakote Dr (*Bid*)) 500 mg PO HS [facility]; Protocol Last Admin: 09/19/18 21:35 Dose: 500 mg Fluticasone Propionate (Flonase) 1 actuation LAURA DAILY [facility] Last Admin: 09/19/18 08:49 Dose: 1 spr Gabapentin (Neurontin) 100 mg PO TID [facility]; Protocol Last Admin: 09/19/18 17:33 Dose: 100 mg Levetiracetam (Keppra) 500 mg PO BID [facility] Last Admin: 09/19/18 17:33 Dose: Not Given Lorazepam (Ativan) 2 mg IM Q6 PRN; Protocol PRN Reason: Agitation Last Admin: 09/17/18 09:35 Dose: 2 mg Lorazepam (Ativan) 2 mg PO Q6H PRN; Protocol PRN Reason: anxiety/agitation Last Admin: 09/20/18 04:09 Dose: 2 mg Magnesium Hydroxide (Milk Of Magnesia) 30 ml PO DAILY PRN PRN Reason: Constipation Montelukast Sodium (Singulair) 10 mg PO DAILY [facility] Last Admin: 09/19/18 08:49 Dose: 10 mg Multivitamins/Minerals (Therapeutic-M Tab) 1 tab PO DAILY [facility] Last Admin: 09/19/18 08:49 Dose: 1 tab Olanzapine (Zyprexa Zydis) 5 mg PO HS [facility]; Protocol Last Admin: 09/19/18 21:35 Dose: 5 mg Pantoprazole Sodium (Protonix Ec Tab) 40 mg PO 0600 [facility] Last Admin: 09/20/18 06:11 Dose: 40 mg Fluticasone/Salmeterol (Advair Diskus 250/50) 1 puff IH Q12 [facility] Last Admin: 09/20/18 06:11 Dose: 1 puff Zaleplon (Sonata) 5 mg PO HS PRN PRN Reason: Insomnia Last Admin: 09/19/18 21:35 Dose: 5 mg Ziprasidone (Geodon Inj) 20 mg IM Q6H PRN; Protocol PRN Reason: severe agitaiton/psychosis Last Admin: 09/17/18 09:37 Dose: 20 mg Ziprasidone (Geodon Cap) 20 mg PO Q6H PRN; Protocol PRN Reason: psychosis/agitation Last Admin: 09/18/18 21:53 Dose: 20 mg - Labs Labs: 09/11/18 07:00 09/11/18 07:00 PT 12.8 SECONDS (9.4-12.5) H 09/10/18 03:50 INR 1.12 09/10/18 03:50 APTT 30.4 Seconds (25.1-36.5) 09/10/18 03:50 - Head Exam Head Exam: ATRAUMATIC, NORMOCEPHALIC - Respiratory Exam Respiratory Exam: Clear to Ausculation Bilateral, NORMAL BREATHING PATTERN - Cardiovascular Exam Cardiovascular Exam: REGULAR RHYTHM, +S1, +S2 - GI/Abdominal Exam GI & Abdominal Exam: Soft, Normal Bowel Sounds. absent: Tenderness Assessment and Plan - Assessment and Plan (Free Text) Assessment: Chronic lung disease Peripheral neuropathy History of Hep C Plan: continue respiratory treatments continue gabapentin for neuropathy Patient was treated for hepatitis C as an outpatient. Hep C quantitative levels are undetectable.
[2018-09-20] MEDS: Divalproex 250 mg DR (BID formulation) PO SCH ×2 (10:19→10:26)
[2018-09-20] MEDS: Multivitamin With Minerals Tab PO SCH (10:20)
[2018-09-20] MEDS: Fluticasone Nasal 50 mcg/Spray NAS SCH (10:20)
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
== END 2018-09-20 14:20 | disposition home or self-care (01) | DRG 885 ==
LOC: ED 02:25 → ERH 09:08 → PSYC 10:22
PROVIDERS: ADMIT Psychiatry & Neurology Psychiatry; ATTEND Psychiatry & Neurology Psychiatry
DX: F25.9 Schizoaffective disorder, unspecified (principal); F43.10 Post-traumatic stress disorder, unspecified; B19.20 Unspecified viral hepatitis C without hepatic coma; F03.90 Unspecified dementia, unspecified severity, without behavioral disturbance, psychotic disturbance, mood disturbance, and anxiety; F12.10 Cannabis abuse, uncomplicated; F31.9 Bipolar disorder, unspecified; G62.9 Polyneuropathy, unspecified; J44.9 Chronic obstructive pulmonary disease, unspecified; K29.70 Gastritis, unspecified, without bleeding; T50.901A Poisoning by unspecified drugs, medicaments and biological substances, accidental (unintentional), initial encounter; Z87.891 Personal history of nicotine dependence; Z91.09 Other allergy status, other than to drugs and biological substances; Z91.14 Patient's other noncompliance with medication regimen; K59.00 Constipation, unspecified

== ENCOUNTER 2018-11-15 02:11 | Inpatient (IN) | payer MEDICARE, BC ==
[2018-11-15 02:12] VITALS: BMI 23.7
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
[2018-11-15 06:54] LABS: ACETAMINOPHEN < 10.0 ug/ml (10.0-20.0); SALICYLATE < 1 mg/dL (2.0-20.0)
[2018-11-15 06:55] LABS: ALB/GLOB RATIO 1.2 (1.1-1.8); ALBUMIN 4.1 g/dL (3.0-4.8); ALT/SGPT 29 U/L (7-56); AST/SGOT 27 U/L (17-59); BLOOD UREA NITROGEN 18 mg/dL (7-21); CALCIUM 9.1 mg/dL (8.4-10.5); GFR NON-AFRICAN AMERICAN > 60
[2018-11-15 06:57] LABS: BASO # 0.03 K/mm3 (0.0-2.0); BASO % 0.2 % (0.0-3.0); EOS # 0.1 (0.0-0.7); EOS % 0.5 % (1.5-5.0); GRAN # 7.65 (1.4-6.5); GRAN % 60.4 % (50.0-68.0); HEMOGLOBIN 14.8 g/dL (14.0-18.0); LYMPH # 4.2 (1.2-3.4); MEAN CORPUSCULAR HEMOGLOBIN 33.1 pg (25.0-35.0); MEAN CORPUSCULAR HGB CONC 33.8 g/dl (31.0-37.0); MEAN PLATELET VOLUME 10.3 fl (7.0-11.0); MONO # 0.8 (0.1-0.6); MONO % 5.9 % (1.0-6.0); RBC 4.47 10^6/uL (3.5-6.1); RED CELL DISTRIBUTION WIDTH 13.9 % (11.5-14.5); WHITE BLOOD COUNT 12.7 10^3/uL (4.5-11.0)
--- NOTE | 2018-11-15 09:10 | RAD ---
Date of service: 11/15/2018 HISTORY: [facility] COMPARISON: 09/10/2018 FINDINGS: LUNGS: No active pulmonary disease. PLEURA: No significant pleural effusion identified, no pneumothorax apparent. CARDIOVASCULAR: No aortic atherosclerotic calcification present. Normal cardiac size. No pulmonary vascular congestion. OSSEOUS STRUCTURES: No significant abnormalities. VISUALIZED UPPER ABDOMEN: Normal. OTHER FINDINGS: None. IMPRESSION: No active disease.
[2018-11-15 11:10] LABS: URINE APPEARANCE CLEAR (CLEAR); URINE BILIRUBIN NEGATIVE (NEGATIVE); URINE BLOOD SMALL (NEGATIVE); URINE COLOR YELLOW (YELLOW); URINE GLUCOSE (UA) NEGATIVE (NEGATIVE); URINE LEUKOCYTE ESTERASE NEGATIVE Leu/uL (NEGATIVE); URINE PROTEIN TRACE mg/dL (<30 mg/dL); URINE UROBILINOGEN 0.2 E.U./dL (<1 E.U./dL)
[2018-11-15 11:18] LABS: URINE BACTERIA FEW /hpf; URINE EPITHELIAL CELLS 0 - 2 /hpf (0-5)
--- NOTE | 2018-11-15 11:43 | ED PDOC ---
Physical Exam Vital Signs Reviewed: Yes Vital Signs Temp Pulse Resp BP Pulse Ox 11/15/18 09:05 80 18 116/84 97 11/15/18 03:30 98.0 F 78 18 127/83 98 Temperature: Afebrile Blood Pressure: Normal Pulse: Regular Respiratory Rate: Normal Appearance: Positive for: Well-Appearing, Non-Toxic, Comfortable Pain Distress: None Mental Status: Positive for: Alert and Oriented X 3 Medical Decision Making ED Course and Treatment: 11/15/18 07:31 Patient endorsed to me by Dr. Ranjana Graham, pending Urinalysis, psych evaluation, and medical clearance. 11/15/18 11:42 Patient has baseline leukocytosis, no medical complaints, patient accepted to psych. - Lab Interpretations Lab Results: 11/15/18 06:30 11/15/18 06:30 Lab Results 11/15/18 10:50: Urine Color Yellow, Urine Appearance Clear, Urine pH 6.0, Ur Specific [place] >= 1.030, Urine Protein Trace H, Urine Glucose (UA) Negative, Urine Ketones 15 H, Urine Blood Small H, Urine Nitrate Negative, Urine Bilirubin Negative, Urine Urobilinogen 0.2, Ur Leukocyte Esterase Negative, Urine RBC 2 - 5 H, Urine WBC 1 - 3, Ur Epithelial Cells 0 - 2, Urine Bacteria Few 11/15/18 06:30: Alcohol, Quantitative < 10 11/15/18 06:30: Salicylates < 1 L, Acetaminophen < 10.0 L 11/15/18 06:30: Sodium 142, Potassium 3.9, Chloride 111 H, Carbon Dioxide 24, Anion Gap 11, BUN 18, Creatinine 0.6 L, Est GFR ( Amer) > 60, Est GFR (Non-Af Amer) > 60, Random Glucose 114 H, Calcium 9.1, Magnesium 1.9, Total Bilirubin 0.8, AST 27, ALT 29, Alkaline Phosphatase 61, Total Protein 7.5, Albumin 4.1, Globulin 3.4, Albumin/Globulin Ratio 1.2 11/15/18 06:30: WBC 12.7 H, RBC 4.47, Hgb 14.8, Hct 43.8, MCV 98.0 D, MCH 33.1, MCHC 33.8, RDW 13.9, Plt Count 283, MPV 10.3, Gran % 60.4, Lymph % (Auto) 33.0, [place] % (Auto) 5.9, Eos % (Auto) 0.5 L, Baso % (Auto) 0.2, Gran # 7.65 H, Lymph # (Auto) 4.2 H, [place] # (Auto) 0.8 H, Eos # (Auto) 0.1, Baso # (Auto) 0.03 - RAD Interpretation Radiology Orders: 11/15/18 08:23 CXR [CHEST PORTABLE] [RAD] Stat - Medication Orders Current Medication Orders: Discontinued Medications Haloperidol Lactate (Haldol) 2.5 mg IM STAT STA; Protocol Stop: 11/15/18 03:02 Last Admin: 11/15/18 03:05 Dose: 2.5 mg IM Administration Charges Document 11/15/18 03:05 AD (Rec: 11/15/18 03:20 AD [id number]) Injection Site MAR Injection Site Left Deltoid Charges for Administration # of IM Administrations 1 Lorazepam (Ativan) 1 mg IM ONCE ONE; Protocol Stop: 11/15/18 03:03 Last Admin: 11/15/18 03:05 Dose: 1 mg IM Administration Charges Document 11/15/18 03:05 AD (Rec: 11/15/18 03:20 AD [id number]) Injection Site MAR Injection Site Right Deltoid Charges for Administration # of IM Administrations 1 Disposition/Present on Arrival - Present on Arrival Any Indicators Present on Arrival: No History of DVT/PE: No History of Uncontrolled Diabetes: No Urinary Catheter: No History of Decub. Ulcer: No History Surgical Site Infection Following: None - Disposition Have Diagnosis and Disposition been Completed?: Yes Diagnosis: Auditory hallucination, Post traumatic stress disorder (PTSD), Dementia with behavioral disturbance, Schizophrenia Disposition: HOSPITALIZED Disposition Time: 13:00 Patient Problems: Current Active Problems Problem Status Onset Auditory hallucination Acute Dementia with behavioral disturbance Acute Schizophrenia Acute Post traumatic stress disorder (PTSD) Chronic Condition: STABLE
[2018-11-15 12:57] VITALS: O2SAT 98
--- NOTE | 2018-11-15 14:45 | PCM.BM ---
<Jose Fuchs - Last Filed: 11/15/18 14:41> Treatment Plan Problems - Problems identified on initial assessmt Altered Thought Process Date Initiated: 11/15/18 Time Initiated: 13:30 Assessment reference: NA Status: Active Priority: 1 Medication Nonadherence Date Initiated: 11/15/18 Time Initiated: 13:30 Assessment reference: NA Status: Active Priority: 2 Ineffective Family Coping: Compromised Date Initiated: 11/15/18 Time Initiated: 13:30 Assessment reference: NA Status: Active Priority: 3 Treatment assets and liabiliti Patient Assests: adapts well, ADL independent, good support system, negotiates basic needs Patient Liabilities: relationship conflicts, medical problems, imparied memory - Milieu Protocol Maintain good personal hygiene: daily Encourage regular showers, every shift Remind patient to perform daily oral care, every shift Assist patient to perform ADL's Maintain personal safety: every shift Educate patient to report safety concerns to staff, every shift Monitor environment for contraband/sharps Medication safety: Monitor for expected outcome, potential side effects: every shift, Assess barriers to learning: every shift, Assess readiness for medication education: every shift Family Contact Family involvement: Family/SO is involved Family contact: Patient agrees to contact - Goals for Treatment Patient goals for treatment: Unable to identify Discharge/Continuing Care - Education Needs Education Needs: Patient Medication, Patient Diagnosis/Disease Process, Patient Coping Skills, Patient Anger Management skills, Patient Placement options, Patient Community resources, Patient Activities of Daily Living, Patient Pain, Patient Nutrition, Patient Uses of Medical Equipment, Patient Health Practices/Safety, Patient Personal Hygiene/Grooming, Patient Aftercare Safety Plan - Discharge Discharge Criteria: Tolerates medication w/o severe side effects <Tamiko Vann - Last Filed: 11/16/18 10:18> - Diagnosis (1) Schizoaffective disorder Status: Chronic Interventions: 11/16/18 10:19 Psychoeducation/psychotherapy Psychopharmacology/adjustment of medications as needed/ monitoring possible side effects Evaluate pt on daily basis Compliance with medications and follow up appointments Long acting medication if pt is noncompliant with pill form Suicide and homicide risk assessment and prevention, coping strategies, safety plan Relapse prevention Reduction of symptoms Improve functional status Possible assertive community treatment Cognitive behavioral therapy Family involvement Possible social skill training as outpatient <Osito,Tamara Y - Last Filed: 11/22/18 13:45> Family Contact Family involvement: Family/SO is involved Family contact: Patient agrees to contact Family contact name: Ella Henning() Family contacted how many times per week?: 2
[2018-11-15] MEDS: Divalproex 250 mg DR (BID formulation) PO SCH (16:33)
[2018-11-15] MEDS: Fluticasone-Salmeterol 250-50mcg Diskus IH SCH (18:51)
--- NOTE | 2018-11-15 21:01 | CARD ---
APPROVED REPORT Date of service: 11/15/2018 EKG Measurement Heart [id number] <Conclusion> Normal sinus rhythm Normal ECG
[2018-11-16] MEDS: Fluticasone-Salmeterol 250-50mcg Diskus IH SCH ×2 (06:34→17:58)
[2018-11-16] MEDS: Pantoprazole 40 mg EC Tab PO SCH (06:34)
[2018-11-16 07:40] LABS: GLUCOSE,FASTING 125 mg/dL (65-110); HDL CHOLESTEROL 56 mg/dL (29-60)
[2018-11-16] MEDS: Divalproex 250 mg DR (BID formulation) PO SCH ×3 (07:46→15:55)
[2018-11-16] MEDS: Multivitamin With Minerals Tab PO SCH (07:46)
[2018-11-16 07:51] LABS: LDL CHOLESTEROL 45 mg/dL (0-129)
[2018-11-16] MEDS: OLANZapine 5 mg Disintegrating Tab PO SCH ×2 (09:41→21:18)
--- NOTE | 2018-11-16 10:05 | PN ---
DATE: 11/16/2018 LOCATION: The patient is seen in the Behavioral Care Unit [facility] in [place]. The patient is in room 517, bed 2. SUBJECTIVE: This is a 68-year-old male. The patient was admitted with marked hallucinations and delusions. The patient has delusions of grandeur and the patient has also confabulation. He has history of taking substances such as marijuana outside. The patient also had used tranquilizers. He has past history of chronic lung disease, a smoker. The patient has history of seizure disorder, and the patient has history of schizophrenia. He is ambulating on the floor this morning. PHYSICAL EXAMINATION: GENERAL: The patient is complaining that he needs nicotine patch for nicotine withdrawal, he is a smoker. VITAL SIGNS: His pulse is 82, blood pressure 130/70. The patient's respirations are 20, O2 saturation is 98% on room air. His temperature is 96.8. HEENT: The patient's head is normocephalic clinically. NECK: The thyroid is not enlarged clinically. Carotid pulses are present. LUNGS: Trachea is central. Breath sounds are vesicular. The patient has rhonchi and crepitations are heard. HEART: Normal sinus rhythm. S1, S2 present. No murmurs. ABDOMEN: Soft. Liver and spleen not palpable. CENTRAL NERVOUS SYSTEM: The patient has no focal neurological deficits. Cranial nerves are intact. Patient is ambulating. He does have history of peripheral neuropathy for which he gets Neurontin. The patient is hallucinating and has delusions clinically which is quite severe now. The patient had quarreled with his and police had to bring him to the hospital. LABORATORY DATA: The patient's lab work done in the hospital showed a white count of 12,700. He had one episode of loose bowel movement. His granulocyte count is 60%, there is no shift to the left. The patient's chemistry; his sugar is 114 and his fasting glucose is 125. He has slight elevation of blood sugar. His potassium is 3.9. MEDICATIONS: The patient takes Advair twice a day. The patient is on Ativan 2 mg every 6 hours p.r.n. The patient is on Depakote 250 mg twice daily, Geodon 20 mg every 6 hours p.r.n. The patient is on Keppra 500 mg twice daily, gabapentin 100 mg three times a day. The patient is also getting Protonix 40 mg daily, Singulair which is montelukast 10 mg daily, Sonata 10 mg daily, and multivitamin. ASSESSMENT AND PLAN: The patient is unrestricted. The patient is able to communicate at this time peacefully. Sanjay Bonilla MD MTDD
--- NOTE | 2018-11-16 10:18 | PCM.PSYCH ---
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, president Edgardo made an offer for me to be a machine filler servicer, probably you do not know about it because you voted for Democrats." "My gained 300 pounds, she is doing yoga, runs miles, she told me to turn down Tamra, I do not know how to turn down Tamra, she is after me, I did not hurt her" Patient's Reaction to Hospitalization: Patient was admitted for evaluation and stabilization of disorganized thoughts and behavior, aggressive behavior in the community, please see emergency room assessment for more detailed information History of Present Illness and Precipitating Events: Sure the patient is 68-year old male with past psychiatric history of schizoaffective disorder, possible PTSD, multiple medical issues, questionable history of seizure disorder, multiple psychiatric admissions in the past, last one was here at [facility], patient was discharged on August 2018, patient does not have power of tax associate attorney, patient was brought in by police due to patient's aggressive behavior at home, patient called 911, patient presented disorganized, agitated, grandiose, psychotic, patient was offered admission for further evaluation and stabilization and medication adjustment. Patient was seen today at the treatment team meeting, this typewriter aligner is very familiar with this patient for multiple hospitalizations in the past, patient presented to be grandiose, irritable, agitated, annoyed, poor personal hygiene, fair ADLs. 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 Patient said that he is a , he prescribed "medical marijuana, I have a card in my wallet". Patient then said that "I am not taking your f...ing stupid medications, I do want to be like a zombie, you are f...ing idiots". Patient presented to be responding to internal stimuli, talking loudly, internally preoccupied. Patient does not present to be anxious, patient denied thoughts of harming himself or others, but impulses are unpredictable. as per family (history was obtained last visit) pt has tendency of wondering, h/o confusion. Pt. uses [facility] pharmacy in [place] to fill his prescriptions [phone] Patient was on lorazepam 1 mg 3 times a day prescribed by , patient has 3 refills last time patient fill medication was October 29, 2018 Ventilation every 6 hours as needed Advair twice a day Patient also feels medication in [facility] [phone] last time patient filled medication was a year ago, patient was not filling any medication since then. Most likely patient was not taking Depakote, not taking Zyprexa, not taking Keppra. this typewriter aligner is very familiar with this patient from the previous admission, bellow information was taken from the previous assessments: patient had history of PTSD, flashbacks, nightmares and reliving of the situatio n. was in [place], but not in combat. Patient denied history of being abused physically/emotional/sexual. h/o paranoia, fear that pt might be monitored by police. from the previous h/o: diagnosed with ADD after the course of interferon for the Hepatitis C treatment, pt said he was attending regular class and school, denied been in special ED school. Pt denies using drugs or alcohol, was not able provide h/o about smoking. pt is on disability for mental illness, lives with his . Family h/o: father and brother both completed suicide, hanging, father was at pt's age. medical h/o: seizure ? Patient patient was discharged with the following medications: Divalproex [Depakote ER] 500 mg PO [facility] #30 ter RX: Fluticasone Nasal [Flonase] 1 actuation LAURA DAILY #1 spr RX: Fluticasone/Salmeterol 250/50 [Advair Diskus 250/50] 1 puff IH Q12 #1 puff RX: Gabapentin [Neurontin] 100 mg PO TID #45 cap RX: levETIRAcetam [Keppra] 500 mg PO BID #30 tab RX: Montelukast [Singulair] 10 mg PO DAILY #7 tab RX: Multimineral/Multivitamin [Therapeutic-M Tab] 1 tab PO DAILY #14 tab RX: OLANZapine [Zyprexa Zydis] 5 mg PO HS #14 odt RX: Pantoprazole [Protonix EC Tab] 40 mg PO 0600 #7 ect RX: Zaleplon [Sonata] 5 mg PO HS PRN #14 cap PRN Reason: Insomnia Medications resumed, as per nursing report patient was refusing to take Depakote, but compliant with Zyprexa, if patient will continue refuse to take medications, [facility] will be involved. 11/15/18 06:30 11/15/18 06:30 Lab Results 11/16/18 07:00: Valproic Acid 18 L 11/16/18 07:00: TSH 3rd Generation 2.70 11/16/18 07:00: Fasting Glucose 125 H, Triglycerides 72, Cholesterol 117 L, LDL Cholesterol Direct 45, HDL Cholesterol 56 11/15/18 10:50: Urine Color Yellow, Urine Appearance Clear, Urine pH 6.0, Ur Specific [place] >= 1.030, Urine Protein Trace H, Urine Glucose (UA) Negative, Urine Ketones 15 H, Urine Blood Small H, Urine Nitrate Negative, Urine Bilirubin Negative, Urine Urobilinogen 0.2, Ur Leukocyte Esterase Negative, Urine RBC 2 - 5 H, Urine WBC 1 - 3, Ur Epithelial Cells 0 - 2, Urine Bacteria Few 11/15/18 06:30: Alcohol, Quantitative < 10 11/15/18 06:30: Salicylates < 1 L, Acetaminophen < 10.0 L 11/15/18 06:30: Sodium 142, Potassium 3.9, Chloride 111 H, Carbon Dioxide 24, Anion Gap 11, BUN 18, Creatinine 0.6 L, Est GFR ( Amer) > 60, Est GFR (Non-Af Amer) > 60, Random Glucose 114 H, Calcium 9.1, Magnesium 1.9, Total Bilirubin 0.8, AST 27, ALT 29, Alkaline Phosphatase 61, Total Protein 7.5, Albumin 4.1, Globulin 3.4, Albumin/Globulin Ratio 1.2 11/15/18 06:30: WBC 12.7 H, RBC 4.47, Hgb 14.8, Hct 43.8, MCV 98.0 D, MCH 33.1, MCHC 33.8, RDW 13.9, Plt Count 283, MPV 10.3, Gran % 60.4, Lymph % (Auto) 33.0, [place] % (Auto) 5.9, Eos % (Auto) 0.5 L, Baso % (Auto) 0.2, Gran # 7.65 H, Lymph # (Auto) 4.2 H, [place] # (Auto) 0.8 H, Eos # (Auto) 0.1, Baso # (Auto) 0.03 Vital Signs Temp Pulse Resp BP Pulse Ox 11/16/18 07:30 96.8 F L 82 20 129/73 11/15/18 16:23 98.3 F 11/15/18 16:03 110 H 144/83 11/15/18 13:20 91 H 17 132/85 11/15/18 12:56 97.8 F 70 20 140/70 98 11/15/18 11:00 98.2 F 78 16 120/70 99 11/15/18 09:05 80 18 116/84 97 11/15/18 03:30 98.0 F 78 18 127/83 98 The patient failed the outpatient lower level of care: Yes Current Medications: Active Medications Generic Name Dose Route Start Last Admin Trade Name Freq PRN Reason Stop Dose Admin Divalproex Sodium 250 mg 11/15/18 16:00 11/16/18 07:50 Deplyndsey Hebert (*Bid*) PO Not Given BID JOSELYN Protocol Gabapentin 100 mg 11/15/18 18:00 11/16/18 07:50 Neurontin PO Not Given TID JOSELYN Protocol Levetiracetam 500 mg 11/15/18 16:00 11/16/18 07:50 Keppra PO Not Given BID JOSELYN Lorazepam 2 mg 11/15/18 15:25 11/16/18 01:20 Ativan PO 2 mg Q6H PRN Administration anxiety/agitation Protocol Lorazepam 2 mg 11/15/18 15:25 Ativan IM Q6 PRN Agitation Protocol Lorazepam 1 mg 11/16/18 09:15 11/16/18 09:39 Ativan PO 1 mg BID JOSELYN Administration Protocol Lorazepam 1 mg 11/16/18 22:00 Ativan PO HS JOSELYN Protocol Montelukast Sodium 10 mg 11/15/18 22:00 11/15/18 21:21 Singulair PO 10 mg HS JOSELYN Administration Multivitamins/Minerals 1 tab 11/16/18 08:00 11/16/18 07:46 Therapeutic-M Tab PO 1 tab DAILY JOSELYN Administration Olanzapine 5 mg 11/16/18 10:00 11/16/18 09:41 Zyprexa Zydis PO Not Given AMHS JOSELYN Protocol Pantoprazole Sodium 40 mg 11/16/18 06:00 11/16/18 06:34 Protonix Ec Tab PO 40 mg 0600 JOSELYN Administration Fluticasone/Salmeterol 1 puff 11/15/18 18:00 11/16/18 06:34 Advair Diskus 250/50 IH 1 puff Q12 JOSELYN Administration Zaleplon 5 mg 11/15/18 15:25 11/15/18 21:21 Sonata PO 5 mg HS PRN Administration Insomnia Ziprasidone 20 mg 11/15/18 15:25 Geodon Cap PO Q6H PRN psychosis/agitation Protocol Ziprasidone 20 mg 11/15/18 15:25 Geodon Inj IM Q6H PRN severe agitaiton/psychosis Protocol Present on Admission - Present on Admission Any Indicators Present on Admission: No Review of Systems - Review of Systems Systems not reviewed;Unavailable: Acuity of Condition - Constitutional Constitutional: As Per HPI - EENT Eyes: As Per HPI Ears: As Per HPI Nose/Mouth/Throat: As Per HPI - Cardiovascular Cardiovascular: As Per HPI - Respiratory Respiratory: As Per HPI - Gastrointestinal Gastrointestinal: As Per HPI - Genitourinary Genitourinary: As Per HPI - Reproductive: Male Reproductive:Male: As Per HPI - Musculoskeletal Musculoskeletal: As Per HPI - Integumentary Integumentary: As Per HPI - Neurological Neurological: As Per HPI - Psychiatric Psychiatric: As Per HPI - Endocrine Endocrine: As Per HPI - Hematologic/Lymphatic Hematologic: As Per HPI Past Patient History - Past Psychiatric History Previous Treatment History: Inpatient Prior Professional Help: See HPI Prior Psychiatric Treatment: See HPI At what hospital: See HPI Duration: See HPI Nature of Treatment: See HPI Explanation of prior treatment: See HPI - PSYCHIATRIC Hx Anxiety: Yes Hx Depression: Yes Hx Schizophrenia: Yes Hx Substance Use: Yes - Infectious Disease Hx of Infectious Diseases: None - Tetanus Immunizations Tetanus Immunization: Unknown - Past Medical History & Family History Past Medical History?: Yes - CARDIAC Hx Cardiac Disorders: No Hx Hypertension: No - PULMONARY Hx Tuberculosis: No - NEUROLOGICAL HX Cerebrovascular Accident: No Hx Seizures: Yes (30 yrs ago) - HEENT Hx HEENT Problems: No - RENAL Hx Chronic Kidney Disease: No - ENDOCRINE/METABOLIC Hx Endocrine Disorders: No - HEMATOLOGICAL/ONCOLOGICAL Hx Cancer: No Hx Human Immunodeficiency Virus (HIV): No - INTEGUMENTARY Hx Dermatological Problems: No Other/Comment: red raised rash ble - MUSCULOSKELETAL/RHEUMATOLOGICAL Hx Falls: No - GASTROINTESTINAL Hx Gastrointestinal Disorders: No - GENITOURINARY/GYNECOLOGICAL Hx Sexually Transmitted Disorders: No - SURGICAL HISTORY Other/Comment: back surgery - ANESTHESIA Hx Anesthesia: Yes Meds Allergies/Adverse Reactions: Allergies Allergy/AdvReac Type Severity Reaction Status Date / Time cat dander Allergy Severe ANAPHYLAXIS Verified 11/15/18 20:29 Mental Status Examination - Personal Presentation Personal Presentation: Looks older than stated age - Affect Affect: Constricted (Irritable and angry), Flat - Motor Activity Motor Activity: Psychomotor Agitation - Reliability in Providing Information Reliability in Providing Information: Poor, due to alteration in thoughts, Poor, due to altered mood, Poor, due to cognitve impairment - Speech Speech: Disorganized, Irrelevant, Tangential - Mood Mood: Depressed - Formal Thought Process Formal Thought Process: Hallucinations, Delusions, Paranoia, Loosening of associations, Circumstantial - Hallucinations/Delusions Hallucinations: Visual, Auditory Delusions: Persecution - Obsessions/Compulsions Obsessions: No Compulsions: No - Cognitive Functions Orientation: Person, Place, Situation, Time Sensorium: Alert Attention/Concentration: Easily distracted Abstract Thinking: [place] Estimate of Intelligence: Average Judgement: Intact, as evidence by: Insight regarding need for hospitalization - Risk Risk: Diminished functioning - Strength & Assets Inventory Strength & Assets Inventory: Intelligence, Family support, Education, Employment history - Limitations Limitations: Other (Severe symptoms, poor insight, psychosis) Psychiatric Physical Exam - Physical Exam Reviewed and confirmed: Emergency Department Physical Exam Results - Vital Signs Recent Vital Signs: Last Vital Signs Temp 96.8 F L 11/16/18 07:30 Pulse 82 11/16/18 07:30 Resp 20 11/16/18 07:30 BP 129/73 11/16/18 07:30 Pulse Ox 98 11/15/18 12:56 - Labs Result Diagrams: 11/15/18 06:30 12/24/18 06:30 Labs: Laboratory Results - last 24 hr 11/15/18 11/16/18 11/16/18 10:50 07:00 07:00 Fasting Glucose 125 H Triglycerides 72 Cholesterol 117 L LDL Cholesterol Direct 45 HDL Cholesterol 56 TSH 3rd Generation 2.70 Urine Color Yellow Urine Appearance Clear Urine pH 6.0 Ur Specific [place] >= 1.030 Urine Protein Trace H Urine Glucose (UA) Negative Urine Ketones 15 H Urine Blood Small H Urine Nitrate Negative Urine Bilirubin Negative Urine Urobilinogen 0.2 Ur Leukocyte Esterase Negative Urine RBC 2 - 5 H Urine WBC 1 - 3 Ur Epithelial Cells 0 - 2 Urine Bacteria Few Valproic Acid 11/16/18 07:00 Fasting Glucose Triglycerides Cholesterol LDL Cholesterol Direct HDL Cholesterol TSH 3rd Generation Urine Color Urine Appearance Urine pH Ur Specific [place] Urine Protein Urine Glucose (UA) Urine Ketones Urine Blood Urine Nitrate Urine Bilirubin Urine Urobilinogen Ur Leukocyte Esterase Urine RBC Urine WBC Ur Epithelial Cells Urine Bacteria Valproic Acid 18 L - EKG Data EKG Interpreted by: ER Physician DSM Plan - DSM 5 DSM 5 Diagnosis: As per history of schizoaffective disorder Marijuana abuse patient Rule out PTSD - Recommended/Plan of Treatment Treatment Recommendations and Plan of Treatment: Milieu/structure/supportive therapy Medical consult was called SW consultation for discharge plan and social issues Med management Depakote resume to 250 mg twice a day for seizures and mood stabilization Ativan 1 mg twice a day as well as at the nighttime for anxiety and mood stabilization Zyprexa Zydis 5 mg at the nighttime for psychosis As needed medications Family involvement Follow up on labs Will monitor closely Pt was educated about risk/benefits and alternatives of medications, coping strategies (safety plan, suicide prevention), relapse prevention, importance of follow up with psychiatrist and therapist, stay away from drugs/alcohol/smoking Projected ELOS: 7 days Prognosis: Guarded Discharge Plan and Discharge Criteria: Pt will be not depressed or manic, will be more hopeful, will be not psychotic or anxious, will be not having thoughts of harming self or others, will be tolerating medications well, will not have major side effects, will be able to function, will not pose threat to self or others. - Tobacco Cessation Tobacco Use Status for the last 30 days: Non User Tobacco Use Treatment Practical Counseling Provided: No Reason for not providing: pt requesting mint nicoderm, pt denied smoking, offered patch, but refused Tobacco Use Treatment FDA-Approved Cessation Medication Provided: No - Alcohol or Substance Abuse Does the patient have an Alcohol or Substance Abuse Disorder: Yes Initial Psych Certification - Initial Certification I certify that the inpatient psychiatric facility admission was medically necessary for either: Treatment which could reasonbly be expected to improve pt's condition I estimate of hospitalization is necessary for proper treatment of the patient: 7 Unit of Time: Days My plans for post-hospital care for this patient are: IOP, day treatment program, follow-up appointment with psychiatrist
[2018-11-17] MEDS: Pantoprazole 40 mg EC Tab PO SCH (05:11)
[2018-11-17] MEDS: Fluticasone-Salmeterol 250-50mcg Diskus IH SCH ×2 (05:11→19:10)
[2018-11-17] MEDS: Divalproex 250 mg DR (BID formulation) PO SCH ×3 (08:04→17:43)
[2018-11-17] MEDS: Multivitamin With Minerals Tab PO SCH (08:04)
[2018-11-17] MEDS: OLANZapine 5 mg Disintegrating Tab PO SCH ×2 (10:03→21:09)
--- NOTE | 2018-11-17 11:43 | PN ---
DATE: 11/17/2018 LOCATION: The patient is in [facility], room 517, bed 2. SUBJECTIVE: He is a 68-year-old white male patient admitted with depression, altered mental state, aggressive behavior. The patient's past history is significant that he has history of chronic lung disease. The patient has history of depression, delusional state. The patient also has history of gastritis and seizure disorder. The patient had peripheral neuropathy and is dependent on nicotine. The patient is in need of nicotine patch to control his urge. PHYSICAL EXAMINATION: GENERAL: This morning, he was sitting in the solarium, comfortable. 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 VITAL SIGNS: Pulse is 78, blood pressure 140/66, respirations are 16. HEENT: Normocephalic. Eyes are within normal limits. NECK: Thyroid is not enlarged. JVP is flat. Carotid pulse present. HEART: Normal sinus rhythm. S1, S2 present. No murmurs. No rubs. LUNGS: Clear. Clinically, the patient has diminished breath sounds bilaterally. ABDOMEN: Soft. Liver and spleen not palpable. CENTRAL NERVOUS SYSTEM: The patient has no focal neurological deficit, but has severe delusional state with delusions of grandeur. The patient also has schizophrenia. He is otherwise pleasant in the unit. He is calm and responding to medications, sometimes he refuses medicines that he does not like. LABORATORY DATA: His blood work will be repeated. His white count was elevated on admission with repeated blood count to confirm. ASSESSMENT AND PLAN: There are no signs of infection noted. We will continue current management, all his medications will be given. The patient is on Advair twice a day for chronic lung disease. The patient is on Ativan, Depakote, Neurontin. The patient is on Zyprexa, Geodon, Keppra, nicotine patch, pantoprazole, Singulair, and vitamin. Diet is heart healthy diet. We will continue current management. His prognosis is guarded. His condition is improving. Sanjay Bonilla MD [email or web address]
--- NOTE | 2018-11-17 13:37 | PCM.PYCHPN ---
Psychiatric Progress Note - Psychiatric Progress Note Patient seen today, length of contact: 30min Patient Chief Complaint: "you can call me president" Problems Identified/Issues Discussed: Suicide/ homicide prevention, past psychiatric h/o, current psychiatric symp toms, medical problems, risk/benefits and alternatives of medications, medications compliance, coping strategies, substance abuse h/o, relapse prevention, importance of follow up with psychiatrist and therapist, discharge plan. Medical Problems: ?seizure d/o Diagnostic Results: 11/15/18 06:30 11/15/18 06:30 Lab Results 11/16/18 07:00: Valproic Acid 18 L 11/16/18 07:00: RPR Nonreactive 11/16/18 07:00: TSH 3rd Generation 2.70 11/16/18 07:00: Fasting Glucose 125 H, Triglycerides 72, Cholesterol 117 L, LDL Cholesterol Direct 45, HDL Cholesterol 56 11/15/18 10:50: Urine Color Yellow, Urine Appearance Clear, Urine pH 6.0, Ur Specific [place] >= 1.030, Urine Protein Trace H, Urine Glucose (UA) Negative, Urine Ketones 15 H, Urine Blood Small H, Urine Nitrate Negative, Urine Bilirubin Negative, Urine Urobilinogen 0.2, Ur Leukocyte Esterase Negative, Urine RBC 2 - 5 H, Urine WBC 1 - 3, Ur Epithelial Cells 0 - 2, Urine Bacteria Few 11/15/18 06:30: Alcohol, Quantitative < 10 11/15/18 06:30: Salicylates < 1 L, Acetaminophen < 10.0 L 11/15/18 06:30: Sodium 142, Potassium 3.9, Chloride 111 H, Carbon Dioxide 24, Anion Gap 11, BUN 18, Creatinine 0.6 L, Est GFR ( Amer) > 60, Est GFR (Non-Af Amer) > 60, Random Glucose 114 H, Calcium 9.1, Magnesium 1.9, Total Bilirubin 0.8, AST 27, ALT 29, Alkaline Phosphatase 61, Total Protein 7.5, Albumin 4.1, Globulin 3.4, Albumin/Globulin Ratio 1.2 11/15/18 06:30: WBC 12.7 H, RBC 4.47, Hgb 14.8, Hct 43.8, MCV 98.0 D, MCH 33.1, MCHC 33.8, RDW 13.9, Plt Count 283, MPV 10.3, Gran % 60.4, Lymph % (Auto) 33.0, [place] % (Auto) 5.9, Eos % (Auto) 0.5 L, Baso % (Auto) 0.2, Gran # 7.65 H, Lymph # (Auto) 4.2 H, [place] # (Auto) 0.8 H, Eos # (Auto) 0.1, Baso # (Auto) 0.03 Vital Signs Temp Pulse Resp BP Pulse Ox 11/17/18 06:24 97.6 F 78 16 143/66 11/16/18 15:00 78 108/62 11/16/18 07:30 96.8 F L 82 20 129/73 11/15/18 16:23 98.3 F 11/15/18 16:03 110 H 144/83 11/15/18 13:20 91 H 17 132/85 11/15/18 12:56 97.8 F 70 20 140/70 98 11/15/18 11:00 98.2 F 78 16 120/70 99 11/15/18 09:05 80 18 116/84 97 11/15/18 03:30 98.0 F 78 18 127/83 98 DSM 5 Symptoms Update: Shortly pt is 68-year old male with past psychiatric history of schizoaffective disorder, possible PTSD, multiple medical issues, questionable history of seizure disorder, multiple psychiatric admissions in the past, last one was here at [facility], patient was discharged on August 2018, patient does not have power of immigration attorney, patient was brought in by police due to patient's aggressive behavior at home, patient called 911, patient presented disorganized, agitated, grandiose, psychotic, patient was offered admission for further evaluation and stabilization and medication adjustment. Patient was seen today at the treatment team meeting, this job specification writer is very familiar with this patient for multiple hospitalizations in the past, patient presented to be grandiose, said "you can call me President", pt is less irritable, less agitated. as per staff pt was refusing to take neurontin and depakote "this is BS and zombie medications", but was compliant with ativan and zyprexa. pt is delusional and grandiose, pt said that the president Edgardo is and he is the one who is a director career services now. Pt's left a message to this job specification writer, patient gave permission to give her Ella Henning [phone], this job specification writer attempted to give a call, but there is no option to leave a message. So far patient tolerates medications well, no side effects observed or reported, aims 0, no EPS. Impression: Schizoaffective disorder, bipolar type Medication Change: Yes (zyprexa inreased) Medical Record Reviewed: Yes Consults ordered or reviewed: Medical consult appreciated, please see notes for more detailed information. Mental Status Examination - Cognitive Function Orientation: Person, Place, Situation, Time Memory: Intact Attention: Poor Concentration: Poor Association: Loose Fund of Knowledge: WNL - Mood Mood: Depressed - Affect Affect: Constricted (Irritable and angry), Flat - Formal Thought Process Formal Thought Process: Hallucinations, Delusions (grandor), Paranoia, Loosening of associations, Circumstantial - Suicidal Ideation Suicidal Ideation: No - Homicidal Ideation Homicidal Ideation: No Goal/Treatment Plan - Goal/Treatment Plan Need for Continued Stay: Remain at risks for inpatient hospitalization, Severe depression anxiety, Discharge may exacerbated symptoms, Severe functional impairment Progress Toward Problem(s) and Goals/Treatment Plan: Milieu/structure/supportive therapy Medical consult was called SW consultation for discharge plan and social issues Med management Depakote will be d/c because patient is noncompliant with that medication Ativan 1 mg twice a day as well as at the nighttime for anxiety and mood stabilization Zyprexa Zydis 5 mg twice a day for psychosis As needed medications Family involvement Follow up on labs Will monitor closely Pt was educated about risk/benefits and alternatives of medications, coping strategies (safety plan, suicide prevention), relapse prevention, importance of follow up with psychiatrist and therapist, stay away from drugs/alcohol/smoking Estimated Date of D/C: 11/25/18
[2018-11-18] MEDS: Pantoprazole 40 mg EC Tab PO SCH (05:28)
[2018-11-18] MEDS: Fluticasone-Salmeterol 250-50mcg Diskus IH SCH ×2 (05:28→17:45)
[2018-11-18 07:54] LABS: BASO # 0.02 K/mm3 (0.0-2.0); BASO % 0.3 % (0.0-3.0); EOS # 0.3 (0.0-0.7); EOS % 3.1 % (1.5-5.0); GRAN # 2.94 (1.4-6.5); GRAN % 37.1 % (50.0-68.0); HEMOGLOBIN 13.6 g/dL (14.0-18.0); LYMPH # 3.9 (1.2-3.4); LYMPH % 49.6 % (22.0-35.0); MEAN CELL VOLUME 97.3 fl (80.0-105.0); MEAN CORPUSCULAR HEMOGLOBIN 32.9 pg (25.0-35.0); MEAN CORPUSCULAR HGB CONC 33.7 g/dl (31.0-37.0); MONO # 0.8 (0.1-0.6); MONO % 9.9 % (1.0-6.0); RBC 4.14 10^6/uL (3.5-6.1); RED CELL DISTRIBUTION WIDTH 13.7 % (11.5-14.5); WHITE BLOOD COUNT 7.9 10^3/uL (4.5-11.0)
[2018-11-18 08:07] LABS: BLOOD UREA NITROGEN 19 mg/dL (7-21); CALCIUM 9.1 mg/dL (8.4-10.5); GFR NON-AFRICAN AMERICAN > 60
[2018-11-18] MEDS: Multivitamin With Minerals Tab PO SCH (08:48)
[2018-11-18] MEDS: Divalproex 250 mg DR (BID formulation) PO SCH ×2 (08:49→16:05)
[2018-11-18] MEDS: OLANZapine 5 mg Disintegrating Tab PO SCH ×2 (10:14→21:29)
--- NOTE | 2018-11-18 10:33 | PN ---
DATE: 11/18/2018 LOCATION: Behavioral Care Unit, room 517, bed 2. SUBJECTIVE: The patient was admitted with depression, altered mental state, delusion, and aggressive behavior. The patient has past history of chronic lung disease, seizure disorder and nicotine addiction. Seen this morning sitting in the solarium and he is still hallucinating. PHYSICAL EXAMINATION: VITAL SIGNS: The pulse is 64, blood pressure 126/75, and respirations are 20. HEENT: His head is normocephalic. NECK: Thyroid is not enlarged. JVP is flat. LUNGS: Clear. HEART: Normal sinus rhythm. ABDOMEN: Soft. Liver and spleen not palpable. CENTRAL NERVOUS SYSTEM: No focal deficits. LABORATORY DATA: The patient's CBC was repeated today. The white count is 7900, his hemoglobin is 13.6, and today his differential shows 49% lymphocytes, 37% granulocytes, and a reversal of the white cell count. MEDICATIONS: The patient seemed to be improved clinically. We will continue his current medications and his medications are; Advair for chronic lung disease. The patient is on Ativan, Depakote, Keppra, gabapentin, nicotine patch, pantoprazole, Singulair, Sonata, and multivitamin. We will continue these medications and follow up. Sanjay Bonilla MD MTDD
--- NOTE | 2018-11-18 14:22 | PCM.PYCHPN ---
Psychiatric Progress Note - Psychiatric Progress Note Patient seen today, length of contact: 30min Patient Chief Complaint: "Madelyn Morrison, I am feeling fine today" Problems Identified/Issues Discussed: Suicide/ homicide prevention, past psychiatric h/o, current psychiatric symptoms, medical problems, risk/benefits and alternatives of medications, medications compliance, coping strategies, substance abuse h/o, relapse prevention, importance of follow up with psychiatrist and therapist, discharge plan. Medical Problems: ?seizure d/o Diagnostic Results: 11/15/18 06:30 11/15/18 06:30 Lab Results 11/16/18 07:00: Valproic Acid 18 L 11/16/18 07:00: RPR Nonreactive 11/16/18 07:00: TSH 3rd Generation 2.70 11/16/18 07:00: Fasting Glucose 125 H, Triglycerides 72, Cholesterol 117 L, LDL Cholesterol Direct 45, HDL Cholesterol 56 11/15/18 10:50: Urine Color Yellow, Urine Appearance Clear, Urine pH 6.0, Ur Specific [place] >= 1.030, Urine Protein Trace H, Urine Glucose (UA) Negative, Urine Ketones 15 H, Urine Blood Small H, Urine Nitrate Negative, Urine Bilirubin Negative, Urine Urobilinogen 0.2, Ur Leukocyte Esterase Negative, Urine RBC 2 - 5 H, Urine WBC 1 - 3, Ur Epithelial Cells 0 - 2, Urine Bacteria Few 11/15/18 06:30: Alcohol, Quantitative < 10 11/15/18 06:30: Salicylates < 1 L, Acetaminophen < 10.0 L 11/15/18 06:30: Sodium 142, Potassium 3.9, Chloride 111 H, Carbon Dioxide 24, Anion Gap 11, BUN 18, Creatinine 0.6 L, Est GFR ( Amer) > 60, Est GFR (Non-Af Amer) > 60, Random Glucose 114 H, Calcium 9.1, Magnesium 1.9, Total Bilirubin 0.8, AST 27, ALT 29, Alkaline Phosphatase 61, Total Protein 7.5, Albumin 4.1, Globulin 3.4, Albumin/Globulin Ratio 1.2 11/15/18 06:30: WBC 12.7 H, RBC 4.47, Hgb 14.8, Hct 43.8, MCV 98.0 D, MCH 33.1, MCHC 33.8, RDW 13.9, Plt Count 283, MPV 10.3, Gran % 60.4, Lymph % (Auto) 33.0, [place] % (Auto) 5.9, Eos % (Auto) 0.5 L, Baso % (Auto) 0.2, Gran # 7.65 H, Lymph # (Auto) 4.2 H, [place] # (Auto) 0.8 H, Eos # (Auto) 0.1, Baso # (Auto) 0.03 Vital Signs Temp Pulse Resp BP Pulse Ox 11/17/18 06:24 97.6 F 78 16 143/66 11/16/18 15:00 78 108/62 11/16/18 07:30 96.8 F L 82 20 129/73 11/15/18 16:23 98.3 F 11/15/18 16:03 110 H 144/83 11/15/18 13:20 91 H 17 132/85 11/15/18 12:56 97.8 F 70 20 140/70 98 11/15/18 11:00 98.2 F 78 16 120/70 99 11/15/18 09:05 80 18 116/84 97 11/15/18 03:30 98.0 F 78 18 127/83 98 DSM 5 Symptoms Update: Shortly pt is 68-year old male with past psychiatric history of schizoaffective disorder, possible PTSD, multiple medical issues, questionable history of seizure disorder, multiple psychiatric admissions in the past, last one was here at [facility], patient was discharged on August 2018, patient does not have power of document review attorney, patient was brought in by police due to patient's aggressive behavior at home, patient called 911, patient presented disorganized, agitated, grandiose, psychotic, patient was offered admission for further evaluation and stabilization and medication adjustment. Patient was seen today at the treatment team meeting room, this sports book writer is very familiar with this patient for multiple hospitalizations in the past, patient presented better today, affect was less irritable, less agitated, patient's thought process is more organized but patient still appears to be grandiose, said "you can call me President." Depakote and Neurontin was discontinued because patient was refusing to take that medication, patient tolerated Zyprexa and Ativan well. As per collateral information from patient patient was doing relatively okay after discharge, but for the past week patient was more disorganized, for past 2 days prior to coming to the hospital patient was screaming and yelling was talking to the people who were not there, please see protective services social worker notes for more detailed information. So far patient tolerates medications well, no side effects observed or reported, aims 0, no EPS. Impression: Schizoaffective disorder, bipolar type Medication Change: No Medical Record Reviewed: Yes Consults ordered or reviewed: Medical consult appreciated, please see notes for more detailed information. Mental Status Examination - Cognitive Function Orientation: Person, Place, Situation, Time Memory: Intact Attention: Poor Concentration: Poor Association: Loose Fund of Knowledge: WNL - Mood Mood: Depressed - Affect Affect: Constricted (Less irritable and less angry), Flat - Formal Thought Process Formal Thought Process: Hallucinations, Delusions (grandor), Paranoia, Loosening of associations, Circumstantial - Suicidal Ideation Suicidal Ideation: No - Homicidal Ideation Homicidal Ideation: No Goal/Treatment Plan - Goal/Treatment Plan Need for Continued Stay: Remain at risks for inpatient hospitalization, Severe depression anxiety, Discharge may exacerbated symptoms, Severe functional impairment Progress Toward Problem(s) and Goals/Treatment Plan: Milieu/structure/supportive therapy Medical consult was called SW consultation for discharge plan and social issues Med management Depakote d/c because patient is noncompliant with that medication Ativan 1 mg twice a day as well as at the nighttime for anxiety and mood stabilization Zyprexa Zydis 5 mg twice a day for psychosis As needed medications Family involvement Follow up on labs Will monitor closely Pt was educated about risk/benefits and alternatives of medications, coping strategies (safety plan, suicide prevention), relapse prevention, importance of follow up with psychiatrist and therapist, stay away from drugs/alcohol/smoking Estimated Date of D/C: 11/25/18
[2018-11-19] MEDS: Fluticasone-Salmeterol 250-50mcg Diskus IH SCH ×2 (05:35→17:15)
[2018-11-19] MEDS: Pantoprazole 40 mg EC Tab PO SCH (05:35)
--- NOTE | 2018-11-19 08:12 | CP.PCM.PN ---
Subjective - Date & Time of Evaluation Date of Evaluation: 11/19/18 Time of Evaluation: 07:45 - Subjective Subjective: Patient is seen this morning. He has delusions of grandeur. Objective - Vital Signs/Intake and Output Vital Signs (last 24 hours): Temp Pulse Resp BP Pulse Ox 97.5 F L 75 20 144/76 98 11/19/18 07:28 11/19/18 07:28 11/19/18 07:28 11/19/18 07:28 11/15/18 12:56 - Medications Medications: Current Medications Divalproex Sodium (Depakote Dr (*Bid*)) 250 mg PO BID JOSELYN; Protocol Last Admin: 11/18/18 16:05 Dose: Not Given Gabapentin (Neurontin) 100 mg PO TID JOSELYN; Protocol Last Admin: 11/18/18 17:31 Dose: Not Given Ibuprofen (Motrin Tab) 600 mg PO Q6H PRN PRN Reason: Pain, moderate (4-7) Last Admin: 11/19/18 05:36 Dose: 600 mg Levetiracetam (Keppra) 500 mg PO BID JOSELYN Last Admin: 11/18/18 16:05 Dose: Not Given Lorazepam (Ativan) 2 mg PO Q6H PRN; Protocol PRN Reason: anxiety/agitation Last Admin: 11/16/18 01:20 Dose: 2 mg Lorazepam (Ativan) 2 mg IM Q6 PRN; Protocol PRN Reason: Agitation Lorazepam (Ativan) 1 mg PO BID JOSELYN; Protocol Last Admin: 11/18/18 16:12 Dose: 1 mg Lorazepam (Ativan) 1 mg PO HS JOSELYN; Protocol Last Admin: 11/18/18 21:29 Dose: 1 mg Montelukast Sodium (Singulair) 10 mg PO HS JOSELYN Last Admin: 11/18/18 21:29 Dose: 10 mg Multivitamins/Minerals (Therapeutic-M Tab) 1 tab PO DAILY JOSELYN Last Admin: 11/18/18 08:48 Dose: 1 tab Nicotine (Nicoderm Cq) 1 patch TD DAILY JOSELYN Last Admin: 11/18/18 08:50 Dose: 1 patch Olanzapine (Zyprexa Zydis) 5 mg PO AMHS JOSELYN; Protocol Last Admin: 11/18/18 21:29 Dose: 5 mg Pantoprazole Sodium (Protonix Ec Tab) 40 mg PO 0600 JOSELYN Last Admin: 11/19/18 05:35 Dose: 40 mg Fluticasone/Salmeterol (Advair Diskus 250/50) 1 puff IH Q12 JOSELYN Last Admin: 11/19/18 05:35 Dose: 1 puff Zaleplon (Sonata) 10 mg PO HS PRN PRN Reason: Insomnia Last Admin: 11/18/18 21:29 Dose: 10 mg Ziprasidone (Geodon Cap) 20 mg PO Q6H PRN; Protocol PRN Reason: psychosis/agitation Last Admin: 11/16/18 21:46 Dose: 20 mg Ziprasidone (Geodon Inj) 20 mg IM Q6H PRN; Protocol PRN Reason: severe agitaiton/psychosis - Labs Labs: 11/18/18 07:30 11/18/18 07:30 - Constitutional Appears: No Acute Distress - Head Exam Head Exam: ATRAUMATIC, NORMOCEPHALIC - Respiratory Exam Respiratory Exam: Clear to Ausculation Bilateral, NORMAL BREATHING PATTERN - Cardiovascular Exam Cardiovascular Exam: REGULAR RHYTHM, +S1, +S2 - Extremities Exam Extremities Exam: Normal Inspection - Neurological Exam Neurological Exam: Alert, Awake Assessment and Plan - Assessment and Plan (Free Text) Assessment: Neuropathy COPD Smoker Seizure disorder GERD Schizophrenia Plan: continue behavioral treatment as per psychiatry continue neurontin for neuropathy continue Protonix for GERD continue Advair for COPD continue nicotine patch
[2018-11-19] MEDS: Multivitamin With Minerals Tab PO SCH (08:23)
[2018-11-19] MEDS: Divalproex 250 mg DR (BID formulation) PO SCH ×2 (08:27→15:39)
[2018-11-19] MEDS: OLANZapine 5 mg Disintegrating Tab PO SCH ×3 (09:30→21:54)
--- NOTE | 2018-11-19 14:42 | PCM.PYCHPN ---
Psychiatric Progress Note - Psychiatric Progress Note Patient seen today, length of contact: 30min Patient Chief Complaint: "I am going to be the next junior legal secretary of defense." Problems Identified/Issues Discussed: Suicide/ homicide prevention, past psychiatric h/o, current psychiatric symptoms, medical problems, risk/benefits and alternatives of medications, medications compliance, coping strategies, substance abuse h/o, relapse prevention, importance of follow up with psychiatrist and therapist, discharge plan. Medical Problems: ?seizure d/o Diagnostic Results: 11/15/18 06:30 11/15/18 06:30 Lab Results 11/16/18 07:00: Valproic Acid 18 L 11/16/18 07:00: RPR Nonreactive 11/16/18 07:00: TSH 3rd Generation 2.70 11/16/18 07:00: Fasting Glucose 125 H, Triglycerides 72, Cholesterol 117 L, LDL Cholesterol Direct 45, HDL Cholesterol 56 11/15/18 10:50: Urine Color Yellow, Urine Appearance Clear, Urine pH 6.0, Ur Specific [place] >= 1.030, Urine Protein Trace H, Urine Glucose (UA) Negative, Urine Ketones 15 H, Urine Blood Small H, Urine Nitrate Negative, Urine Bilirubin Negative, Urine Urobilinogen 0.2, Ur Leukocyte Esterase Negative, Urine RBC 2 - 5 H, Urine WBC 1 - 3, Ur Epithelial Cells 0 - 2, Urine Bacteria Few 11/15/18 06:30: Alcohol, Quantitative < 10 11/15/18 06:30: Salicylates < 1 L, Acetaminophen < 10.0 L 11/15/18 06:30: Sodium 142, Potassium 3.9, Chloride 111 H, Carbon Dioxide 24, Anion Gap 11, BUN 18, Creatinine 0.6 L, Est GFR ( Amer) > 60, Est GFR (Non-Af Amer) > 60, Random Glucose 114 H, Calcium 9.1, Magnesium 1.9, Total Bilirubin 0.8, AST 27, ALT 29, Alkaline Phosphatase 61, Total Protein 7.5, Albumin 4.1, Globulin 3.4, Albumin/Globulin Ratio 1.2 11/15/18 06:30: WBC 12.7 H, RBC 4.47, Hgb 14.8, Hct 43.8, MCV 98.0 D, MCH 33.1, MCHC 33.8, RDW 13.9, Plt Count 283, MPV 10.3, Gran % 60.4, Lymph % (Auto) 33.0, [place] % (Auto) 5.9, Eos % (Auto) 0.5 L, Baso % (Auto) 0.2, Gran # 7.65 H, Lymph # (Auto) 4.2 H, [place] # (Auto) 0.8 H, Eos # (Auto) 0.1, Baso # (Auto) 0.03 Vital Signs Temp Pulse Resp BP Pulse Ox 11/17/18 06:24 97.6 F 78 16 143/66 11/16/18 15:00 78 108/62 11/16/18 07:30 96.8 F L 82 20 129/73 11/15/18 16:23 98.3 F 11/15/18 16:03 110 H 144/83 11/15/18 13:20 91 H 17 132/85 11/15/18 12:56 97.8 F 70 20 140/70 98 11/15/18 11:00 98.2 F 78 16 120/70 99 11/15/18 09:05 80 18 116/84 97 11/15/18 03:30 98.0 F 78 18 127/83 98 Temp Pulse Resp BP Pulse Ox 97.5 F L 75 20 144/76 98 11/19/18 07:28 11/19/18 07:28 11/19/18 07:28 11/19/18 07:28 11/15/18 12:56 DSM 5 Symptoms Update: Shortly pt is 68-year old male with past psychiatric history of schizoaffective disorder, possible PTSD, multiple medical issues, questionable history of seizure disorder, multiple psychiatric admissions in the past, last one was here at [facility], patient was discharged on August 2018, patient does not have power of assistant city attorney, patient was brought in by police due to patient's aggressive behavior at home, patient called 911, patient presented disorganized, agitated, grandiose, psychotic, patient was offered admission for further evaluation and stabilization and medication adjustment. Patient was seen today at the dining area, hygiene is much better, patient presented much calmer, no aggression or agitation, patient still delusional, stated "I am going to be the next junior legal secretary of defense." pt is improving now, to compare to the time of admission pt was agitated, cursing, screaming, demanded to be called "Mr.Tag Machine Operator". Patient is compliant with Zyprexa and Ativan only, Depakote and Neurontin was discontinued. As per collateral information from patient patient was doing relatively okay after discharge, but for the past week patient was more disorganized, for past 2 days prior to coming to the hospital patient was screaming and yelling was talking to the people who were not there, please see social service assistant notes for more detailed information. So far patient tolerates medications well, no side effects observed or reported, aims 0, no EPS. Impression: Schizoaffective disorder, bipolar type Medication Change: Yes (Zyprexa increased) Medical Record Reviewed: Yes Consults ordered or reviewed: Medical consult appreciated, please see notes for more detailed information. Mental Status Examination - Cognitive Function Orientation: Person, Place, Situation, Time Memory: Intact Attention: Poor (Some improvement) Concentration: Poor (Some improvement) Association: Loose Fund of Knowledge: WNL - Mood Mood: Depressed ("I feel great") - Affect Affect: Constricted (Less irritable and less angry), Flat - Formal Thought Process Formal Thought Process: Delusions (grandor), Paranoia, Loosening of associations, Circumstantial - Suicidal Ideation Suicidal Ideation: No - Homicidal Ideation Homicidal Ideation: No Goal/Treatment Plan - Goal/Treatment Plan Need for Continued Stay: Remain at risks for inpatient hospitalization, Severe depression anxiety, Discharge may exacerbated symptoms, Severe functional impairment Progress Toward Problem(s) and Goals/Treatment Plan: Milieu/structure/supportive therapy Medical consult was called SW consultation for discharge plan and social issues Med management Depakote d/c because patient is noncompliant with that medication Ativan 1 mg twice a day as well as at the nighttime for anxiety and mood stabilization Zyprexa Zydis 5 mg twice a day and at the nighttime for psychosis As needed medications Family involvement Follow up on labs Will monitor closely Pt was educated about risk/benefits and alternatives of medications, coping strategies (safety plan, suicide prevention), relapse prevention, importance of follow up with psychiatrist and therapist, stay away from drugs/alcohol/smoking Estimated Date of D/C: 11/25/18
[2018-11-20] MEDS: Pantoprazole 40 mg EC Tab PO SCH (07:04)
[2018-11-20] MEDS: Fluticasone-Salmeterol 250-50mcg Diskus IH SCH ×2 (07:05→18:53)
[2018-11-20] MEDS: OLANZapine 5 mg Disintegrating Tab PO SCH ×3 (08:48→21:51)
[2018-11-20] MEDS: Multivitamin With Minerals Tab PO SCH (08:48)
[2018-11-20] MEDS: Divalproex 250 mg DR (BID formulation) PO SCH ×2 (08:55→16:04)
--- NOTE | 2018-11-20 10:08 | PCM.PYCHPN ---
Psychiatric Progress Note - Psychiatric Progress Note Patient seen today, length of contact: 30 min Problems Identified/Issues Discussed: I reviewed assessment and recent notes. Patient is 68-year old male with past psychiatric history of schizoaffective disorder, possible PTSD, multi ple medical issues, questionable history of seizure disorder, multiple psychiatric admissions in the past-most recently at [facility] August 2018, patient does not have power of attorney recruiter who was BIB police after called 911 due to aggressive behavior at home. Patient was found to be disorganized, agitated, grandiose and psychotic. Patient was seen and examined at bedside today. He is alert and oriented x3 with fair grooming and eye contact. Affect is anxious and patient is talkative. Thought process is overinclusive and patient requires some redirection to stay focused. Patient reports that he is "feeling great" and feels resentful about being hospitalized again. Nonetheless he is willing to complete treatment on our unit to avoid commitment at [facility], an experience that he doesn't want to have again. Thought process is fairly coherent and patient is not exhibiting any overt symptoms of perceptual disturbance. Patient denies any new side effects, discomfort or pain. Patient has been calm and in fair control on the unit. Not overly social but doesn't appear bizarre or inappropriate. Delusions were not elicited today. There were no behavioral issues thus far over the weekend. Diagnostic Results: Schizoaffective disorder, bipolar type Medication Change: Yes (Zyprexa increased) Medical Record Reviewed: Yes Mental Status Examination - Cognitive Function Orientation: Person, Place, Situation, Time Memory: Intact Attention: Poor (Some improvement) Concentration: Poor (Some improvement) Association: Loose Fund of Knowledge: WNL - Mood Mood: Depressed ("I feel great") - Affect Affect: Constricted (Less irritable and less angry), Flat - Formal Thought Process Formal Thought Process: Delusions (grandor), Paranoia, Loosening of associations, Circumstantial - Suicidal Ideation Suicidal Ideation: No - Homicidal Ideation Homicidal Ideation: No Goal/Treatment Plan - Goal/Treatment Plan Need for Continued Stay: Remain at risks for inpatient hospitalization, Severe depression anxiety, Discharge may exacerbated symptoms, Severe functional impairment Progress Toward Problem(s) and Goals/Treatment Plan: * c/w current tx and plan * Vitals reviewed and noted below: Selected Entries 11/18/18 11/19/1811/19/18 07:11 07:28 16:00 Temperature 97.5 F L 97.5 F L Pulse Rate 64 75 90 Respiratory 20 20 Rate Blood Pressure 126/75 144/76 128/69 Estimated Date of D/C: 11/25/18
[2018-11-20] MEDS: Hydrocortisone 2.5% Rectal Cream(30 gm) PR SCH (16:00)
--- NOTE | 2018-11-20 18:19 | PN ---
DATE: 11/20/2018 LOCATION: The patient is in [facility]. SUBJECTIVE: The patient was admitted with delusional state, hallucination with aggressive behavior. The patient has history of schizophrenia, depression, history of chronic lung disease. The patient also has history of peripheral neuropathy and seizure disorder. The patient is complaining of hemorrhoids and states that he has active bleeding when he wipes his anal area after defecation. PHYSICAL EXAMINATION: GENERAL: The patient has internal hemorrhoids and he denies rectal irritation due to pain. VITAL SIGNS: His pulse is 83, blood pressure 144/90, respirations 18, and his O2 stat is 98% on room air. HEENT: His head is normocephalic. LUNGS: Clear. HEART: Normal sinus rhythm. ABDOMEN: Soft. There is pain with upper lobe distention. No tenderness. RECTAL: As per chart. CENTRAL NERVOUS SYSTEM: No focal deficits. MEDICATIONS: The patient is still on medication, which consist of Advair twice a day. The patient gets Anusol, hydrocortisone suppository twice a day at this time; it was ordered today. The patient is getting a lot of Ativan 2 mg every 6 hours p.r.n. The patient is on Depakote 250 b.i.d. The patient is on Keppra 500 mg b.i.d. and Motrin 600 mg every 6 hours p.r.n. for degenerative arthritis. ASSESSMENT AND PLAN: His condition is improved as far as his mental status is concerned and his medical condition. His breathing is under control. The patient is getting treatment for symptoms of hemorrhoids. We will followup. Sanjay Bonilla MD JESÚS
[2018-11-20] MEDS ORDERED: NICOTINE 2 MG PO PRN ×2 (18:24→18:50)
[2018-11-20] MEDS: Benzocaine/Menthol (Cepacol) Lozenge MT PRN ×2 (18:53→23:20)
[2018-11-21] MEDS: Fluticasone-Salmeterol 250-50mcg Diskus IH SCH ×2 (07:03→19:06)
[2018-11-21] MEDS: Pantoprazole 40 mg EC Tab PO SCH (07:04)
[2018-11-21] MEDS: Benzocaine/Menthol (Cepacol) Lozenge MT PRN ×5 (07:04→23:54)
[2018-11-21] MEDS: Hydrocortisone 2.5% Rectal Cream(30 gm) PR SCH ×2 (09:18→15:31)
[2018-11-21] MEDS: Divalproex 250 mg DR (BID formulation) PO SCH ×2 (09:18→15:16)
[2018-11-21] MEDS: Multivitamin With Minerals Tab PO SCH (09:19)
[2018-11-21] MEDS: OLANZapine 5 mg Disintegrating Tab PO SCH ×2 (09:19→15:25)
[2018-11-21] MEDS ORDERED: OLANZapine 5 mg Disintegrating Tab PO SCH ×2 (10:24→10:33)
--- NOTE | 2018-11-21 10:25 | PCM.PYCHPN ---
Psychiatric Progress Note - Psychiatric Progress Note Patient seen today, length of contact: 30 min Problems Identified/Issues Discussed: I reviewed recent notes. Patient is 68-year old male with past psychiatric history of schizoaffective disorder, possible PTSD, multiple medical issues, questionable history of seizure disorder, multiple psychiatric admissions in the past-most recently at [facility] August 2018, patient does not have power of trust and estates attorney who was BIB police after called 911 due to aggressive behavior at home. Patient was found to be disorganized, agitated, grandiose and psychotic. Patient was seen and examined in the dayroom today. He is alert and oriented x3 with fair grooming and eye contact. Affect is anxious and patient is talkative but guarded. 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 He becomes irritable, paranoid and secretive when I bring it up. Affect switches back to friendly when topic changes. Thought process can still be overinclusive, illogical and patient requires some redirection to stay focused. Patient reports that he is "feeling great" and still feels resentful about being hospitalized again. Nonetheless he is willing to complete treatment on our unit to avoid commitment at [facility], an experience that he doesn't want again. Thought process is fairly coherent and patient is not exhibiting any overt symptoms of hallucinations. Patient denies any new side effects, discomfort or pain. Patient has been calm and in fair control on the unit. Not overly social but doesn't appear bizarre or inappropriate. Delusions were not elicited today. There were no behavioral issues thus far over the weekend. Diagnostic Results: Schizoaffective disorder, bipolar type Medication Change: Yes (Zyprexa increased) Medical Record Reviewed: Yes Mental Status Examination - Cognitive Function Orientation: Person, Place, Situation, Time Memory: Intact Attention: Poor (Some improvement) Concentration: Poor (Some improvement) Association: Loose Fund of Knowledge: WNL - Mood Mood: Depressed ("I feel great") - Affect Affect: Constricted (Less irritable and less angry), Flat - Formal Thought Process Formal Thought Process: Delusions (grandor), Paranoia, Loosening of a ssociations, Circumstantial - Suicidal Ideation Suicidal Ideation: No - Homicidal Ideation Homicidal Ideation: No Goal/Treatment Plan - Goal/Treatment Plan Need for Continued Stay: Remain at risks for inpatient hospitalization, Severe depression anxiety, Discharge may exacerbated symptoms, Severe functional impairment Progress Toward Problem(s) and Goals/Treatment Plan: * c/w current tx and plan * No new weekend lab results thus far * Zyprexa increased to 5 mg po bid and 7 mg po HS on 11/21/18 for continued delusions and paranoia. * Vitals reviewed and noted below: 11/20/18 11/20/18 07:00 15:00 Temperature 97.8 F Pulse Rate 83 78 Respiratory 18 Rate Blood Pressure 144/90 125/69 Estimated Date of D/C: 11/25/18
--- NOTE | 2018-11-21 10:29 | PN ---
DATE: 11/21/2018 LOCATION: He is in the Behavioral Care Unit, [facility] in [place]. SUBJECTIVE: The patient is seen this morning, ambulating. He is feeling well medically. The patient's history is that he has schizophrenia, seizure disorder, and chronic lung disease. The patient also has delusional state and delusions of grandeur. PHYSICAL EXAMINATION: The patient is seen this morning. VITAL SIGNS: The pulse is 72, blood pressure 130/77, and respirations are 20. HEENT: The patient's head is normocephalic. LUNGS: Clear. HEART: Normal sinus rhythm. ABDOMEN: Soft. Liver and spleen are not palpable. CENTRAL NERVOUS SYSTEM: No focal deficit. MEDICATIONS: The patient is continuing his medications. He is on Advair twice a day and Anusol HC twice a day, that should be for one week. The patient is getting Ativan, Depakote, Keppra, gabapentin, and medications for seizure disorder. IMPRESSION AND PLAN: The patient is also on nicotine patch because he has history of smoking. We will continue current management. We will follow up. Sanjay Bonilla MD JESÚS
[2018-11-22] MEDS: Pantoprazole 40 mg EC Tab PO SCH (06:51)
[2018-11-22] MEDS: Benzocaine/Menthol (Cepacol) Lozenge MT PRN (06:51)
[2018-11-22] MEDS: Fluticasone-Salmeterol 250-50mcg Diskus IH SCH (06:52)
[2018-11-22 07:19] VITALS: BP 144/73; PULSE 88; RESP 17; TEMP 97.6
[2018-11-22] MEDS ORDERED: Influenza Vaccine 60 mcg/0.5 mL SYR (4YR UP) IM ONE (08:09)
[2018-11-22] MEDS: Divalproex 250 mg DR (BID formulation) PO SCH (08:11)
[2018-11-22] MEDS: Hydrocortisone 2.5% Rectal Cream(30 gm) PR SCH (08:16)
[2018-11-22] MEDS: OLANZapine 5 mg Disintegrating Tab PO SCH (08:22)
[2018-11-22] MEDS: Multivitamin With Minerals Tab PO SCH (08:22)
--- NOTE | 2018-11-22 10:25 | PCM.PYCHDC ---
Mental Status Examination - Mental Status Examination Orientation: Person, Place, Situation Memory: Impaired Mood: Neutral Affect: Broad Speech: Appropriate Attention: WNL Concentration: WNL Association: WNL Fund of Knowledge: WNL Formal Thought Process: Delusions (He is still delusional about having top [employer] work but he is not preoccupied, angry or obsessed with this delusion. it needs to be elicited from him . ) Description of patient's judgement and insight: improved and fair insight and judgment Psychotic Thoughts and Behaviors: Patient denied perceptual disturbance including hallucinations v Suicidal Ideation: No Current Homicidal Ideation?: No Discharge Summary - Discharge Note Reason for Hospitalization: patient is 68-year old male with past psychiatric history of schizoaffective disorder, possible PTSD, multiple medical issues, questionable history of seizure disorder, multiple psychiatric admissions in the past, last one was here at [facility], patient was discharged on August 2018, patient does not have power of litigation attorney, patient was brought in by police due to patient's aggressive behavior at home, patient called 911, patient presented disorganized, agitated, grandiose, psychotic, patient was offered admission for further evaluation and stabilization and medication adjustment. Psychiatric History (includes Medical, Family, Personal Hx): See HPI Laboratory Data: Laboratory Tests 11/15/18 11/15/18 11/15/18 06:30 06:30 06:30 WBC 12.7 H RBC 4.47 Hgb 14.8 Hct 43.8 MCV 98.0 D MCH 33.1 MCHC 33.8 RDW 13.9 Plt Count 283 MPV 10.3 Gran % 60.4 Lymph % (Auto) 33.0 [place] % (Auto) 5.9 Eos % (Auto) 0.5 L Baso % (Auto) 0.2 Gran # 7.65 H Lymph # (Auto) 4.2 H [place] # (Auto) 0.8 H Eos # (Auto) 0.1 Baso # (Auto) 0.03 Sodium 142 Potassium 3.9 Chloride 111 H Carbon Dioxide 24 Anion Gap 11 BUN 18 Creatinine 0.6 L Est GFR ( Amer) > 60 Est GFR (Non-Af Amer) > 60 POC Glucose (mg/dL) Random Glucose 114 H Fasting Glucose Calcium 9.1 Magnesium 1.9 Total Bilirubin 0.8 AST 27 ALT 29 Alkaline Phosphatase 61 Total Protein 7.5 Albumin 4.1 Globulin 3.4 Albumin/Globulin Ratio 1.2 Triglycerides Cholesterol LDL Cholesterol Direct HDL Cholesterol TSH 3rd Generation Urine Color Urine Appearance Urine pH Ur Specific [place] Urine Protein Urine Glucose (UA) Urine Ketones Urine Blood Urine Nitrate Urine Bilirubin Urine Urobilinogen Ur Leukocyte Esterase Urine RBC Urine WBC Ur Epithelial Cells Urine Bacteria Salicylates < 1 L Acetaminophen < 10.0 L Valproic Acid Alcohol, Quantitative RPR 11/15/18 11/15/18 11/16/18 06:30 10:50 07:00 WBC RBC Hgb Hct MCV MCH MCHC RDW Plt Count MPV Gran % Lymph % (Auto) [place] % (Auto) Eos % (Auto) Baso % (Auto) Gran # Lymph # (Auto) [place] # (Auto) Eos # (Auto) Baso # (Auto) Sodium Potassium Chloride Carbon Dioxide Anion Gap BUN Creatinine Est GFR ( Amer) Est GFR (Non-Af Amer) POC Glucose (mg/dL) Random Glucose Fasting Glucose 125 H Calcium Magnesium Total Bilirubin AST ALT Alkaline Phosphatase Total Protein Albumin Globulin Albumin/Globulin Ratio Triglycerides 72 Cholesterol 117 L LDL Cholesterol Direct 45 HDL Cholesterol 56 TSH 3rd Generation Urine Color Yellow Urine Appearance Clear Urine pH 6.0 Ur Specific [place] >= 1.030 Urine Protein Trace H Urine Glucose (UA) Negative Urine Ketones 15 H Urine Blood Small H Urine Nitrate Negative Urine Bilirubin Negative Urine Urobilinogen 0.2 Ur Leukocyte Esterase Negative Urine RBC 2 - 5 H Urine WBC 1 - 3 Ur Epithelial Cells 0 - 2 Urine Bacteria Few Salicylates Acetaminophen Valproic Acid Alcohol, Quantitative < 10 RPR 11/16/18 11/16/18 11/16/18 07:00 07:00 07:00 WBC RBC Hgb Hct MCV MCH MCHC RDW Plt Count MPV Gran % Lymph % (Auto) [place] % (Auto) Eos % (Auto) Baso % (Auto) Gran # Lymph # (Auto) [place] # (Auto) Eos # (Auto) Baso # (Auto) Sodium Potassium Chloride Carbon Dioxide Anion Gap BUN Creatinine Est GFR ( Amer) Est GFR (Non-Af Amer) POC Glucose (mg/dL) Random Glucose Fasting Glucose Calcium Magnesium Total Bilirubin AST ALT Alkaline Phosphatase Total Protein Albumin Globulin Albumin/Globulin Ratio Triglycerides Cholesterol LDL Cholesterol Direct HDL Cholesterol TSH 3rd Generation 2.70 Urine Color Urine Appearance Urine pH Ur Specific [place] Urine Protein Urine Glucose (UA) Urine Ketones Urine Blood Urine Nitrate Urine Bilirubin Urine Urobilinogen Ur Leukocyte Esterase Urine RBC Urine WBC Ur Epithelial Cells Urine Bacteria Salicylates Acetaminophen Valproic Acid 18 L Alcohol, Quantitative RPR Nonreactive 11/17/18 11/18/18 11/18/18 00:04 07:30 07:30 WBC 7.9 D RBC 4.14 Hgb 13.6 L Hct 40.3 L MCV 97.3 MCH 32.9 MCHC 33.7 RDW 13.7 Plt Count 252 MPV 10.0 Gran % 37.1 L Lymph % (Auto) 49.6 H [place] % (Auto) 9.9 H Eos % (Auto) 3.1 Baso % (Auto) 0.3 Gran # 2.94 Lymph # (Auto) 3.9 H [place] # (Auto) 0.8 H Eos # (Auto) 0.3 Baso # (Auto) 0.02 Sodium 138 Potassium 4.3 Chloride 107 Carbon Dioxide 23 Anion Gap 11 BUN 19 Creatinine 0.7 L Est GFR ( Amer) > 60 Est GFR (Non-Af Amer) > 60 POC Glucose (mg/dL) 106 Random Glucose 104 Fasting Glucose Calcium 9.1 Magnesium Total Bilirubin AST ALT Alkaline Phosphatase Total Protein Albumin Globulin Albumin/Globulin Ratio Triglycerides Cholesterol LDL Cholesterol Direct HDL Cholesterol TSH 3rd Generation Urine Color Urine Appearance Urine pH Ur Specific [place] Urine Protein Urine Glucose (UA) Urine Ketones Urine Blood Urine Nitrate Urine Bilirubin Urine Urobilinogen Ur Leukocyte Esterase Urine RBC Urine WBC Ur Epithelial Cells Urine Bacteria Salicylates Acetaminophen Valproic Acid Alcohol, Quantitative RPR Consultations:: List each consultation separately and include: 1. Reason for request. 2. Findings. 3. Follow-up Consultations: Dr. Bonilla 11/16/18-11/21/18 Summary of Hospital Course include:: 1. Description of specific treatment plan utilized for patients during their course of treatmen. 2. Summarize the time- course for resolution of acute symptoms and/or regressed behaviors. 3. Describe issues identified and worked on during hospitalization. 4. Describe medication utilized. 5. Describe medical problems identified and treated. 6. Reassessment of suicide risk Summary of Hospital Course: DR. AZEVEDO'S 11/16/18 ADMISSION NOTE History of Present Illness and Precipitating Events: Sure the patient is 68-year old male with past psychiatric history of schizoaffective disorder, possible PTSD, multiple medical issues, questionable history of seizure disorder, multiple psychiatric admissions in the past, last one was here at [facility], patient was discharged on August 2018, patient does not have power of litigation attorney, patient was brought in by police due to patient's aggressive behavior at home, patient called 911, patient presented disorganized, agitated, grandiose, psychotic, patient was offered admission for further evaluation and stabilization and medication adjustment. Patient was seen today at the treatment team meeting, this property underwriter is very familiar with this patient for multiple hospitalizations in the past, patient presented to be grandiose, irritable, agitated, annoyed, poor personal hygiene, fair ADLs. 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 Patient said that he is a , he prescribed "medical marijuana, I have a card in my wallet". Patient then said that "I am not taking your f...ing stupid medications, I do want to be like a zombie, you are f...ing idiots". Patient presented to be responding to internal stimuli, talking loudly, internally preoccupied. Patient does not present to be anxious, patient denied thoughts of harming himself or others, but impulses are unpredictable. as per family (history was obtained last visit) pt has tendency of wondering, h/o confusion. Pt. uses [facility] pharmacy in [place] to fill his prescriptions [phone] Patient was on lorazepam 1 mg 3 times a day prescribed by , patient has 3 refills last time patient fill medication was October 29, 2018 Ventilation every 6 hours as needed Advair twice a day Patient also feels medication in [facility] [phone] last time patient filled medication was a year ago, patient was not filling any medication since then. Most likely patient was not taking Depakote, not taking Zyprexa, not taking Keppra. this property underwriter is very familiar with this patient from the previous admission, bellow information was taken from the previous assessments: patient had history of PTSD, flashbacks, nightmares and reliving of the situation. was in [place], but not in combat. Patient denied history of being abused physically/emotional/sexual. h/o paranoia, fear that pt might be monitored by police. from the previous h/o: diagnosed with ADD after the course of interferon for the Hepatitis C treatment, pt said he was attending regular class and school, denied been in special ED school. Pt denies using drugs or alcohol, was not able provide h/o about smoking. pt is on disability for mental illness, lives with his . Family h/o: father and brother both completed suicide, hanging, father was at pt's age. medical h/o: seizure ? Patient patient was discharged with the following medications: Divalproex [Depakote ER] 500 mg PO [facility] #30 ter RX: Fluticasone Nasal [Flonase] 1 actuation LAURA DAILY #1 spr RX: Fluticasone/Salmeterol 250/50 [Advair Diskus 250/50] 1 puff IH Q12 #1 puff RX: Gabapentin [Neurontin] 100 mg PO TID #45 cap RX: levETIRAcetam [Keppra] 500 mg PO BID #30 tab RX: Montelukast [Singulair] 10 mg PO DAILY #7 tab RX: Multimineral/Multivitamin [Therapeutic-M Tab] 1 tab PO DAILY #14 tab RX: OLANZapine [Zyprexa Zydis] 5 mg PO HS #14 odt RX: Pantoprazole [Protonix EC Tab] 40 mg PO 0600 #7 ect RX: Zaleplon [Sonata] 5 mg PO HS PRN #14 cap PRN Reason: Insomnia Medications resumed, as per nursing report patient was refusing to take Depakote, but compliant with Zyprexa, if patient will continue refuse to take medications, [facility] will be involved. DR. COFFEY'S 11/22/18 DISCHARGE NOTE I interviewed patient in the dayroom to assess stability for discharge. Patient is alert and well-oriented to month, year and circumstances. Eye contact is good. Patient feels improved and denies any suicidal thoughts or thoughts to harm others. Affect is calm and appropriately reactive and much more related. Patient denies hallucinations and is not responding to internal stimuli. He is still delusional about having top [employer] work but he is not preoccupied, angry or obsessed with this delusion. it needs to be elicited from him . Thought process is more coherent and impulse control is much improved since admission. Patient feels comfortable with discharge today and denies any new concerns. Refuses to retract 48 hour letter and he doesn't meet criteria for screening so screeners were not called. He denies acute discomfort or pain. Tolerating medications and denies any issues with them. - Final Diagnosis (DSM 5) Condition upon Discharge: GUARDED DSM 5: Schizoaffective Disorder Anxiety Disorder Disposition: AGAINST MEDICAL ADVICE Follow-up Treatment Plan: * PLEASE REFER TO SW NOTE FOR FULL DISPOSITION INFORMATION * THE FOLLOWING MEDICATIONS WERE CALLED INTO PATIENT'S PHARMACY [facility] [phone] (15 DAYS + 1 RF) at 10:22 am on 11/22/18: depakote 250 mg po bid gabapentin 100 mg po tid ativan 1 mg po tid zyprexa 5 mg po bid, 7.5 mg po HS sonata 10 mg po HS prn: insomnia - Smoking Cessation Smoking Cessation Medication prescribed: No
--- NOTE | 2018-11-22 11:54 | PN ---
DATE: 11/22/2018 LOCATION: The patient is in [facility] Behavioral Care Unit, Room 517, bed 2. SUBJECTIVE: The patient is seen this morning. He has history of depression and schizophrenia. The patient also has delusions of grandeur, hallucination, history of seizure disorder, history of chronic obstructive lung disease. The patient also has history of neuropathy. He is seen this morning. He is ambulating. He says he feels better. PHYSICAL EXAMINATION: VITAL SIGNS: Pulse 88, blood pressure 144/73, respirations are 17 and the patient's temperature is 97.6. HEENT: Head is normocephalic. NECK: Thyroid is not enlarged. JVP is flat. LUNGS: Trachea is central. Breath sounds are vesicular. HEART: Normal sinus rhythm. S1 and S2 present. ABDOMEN: Soft. Liver and spleen are not palpable. CENTRAL NERVOUS SYSTEM: No focal deficit. MEDICATIONS: The patient's medication list consists of Advair twice a day. The patient is on Anusol-hydrocortisone suppository for hemorrhoids. The patient gets Ativan. He is on Depakote, Keppra and the patient also gets Geodon p.r.n. for agitation. He is on nicotine patch for nicotine withdrawal, he was cigarette smoker. LABORATORY DATA: The [place] down [place] 7900 [place] [address]. He has a differential which is significantly different from the original CBC count. His lymphocyte count now is 49.6 and his neutrophil count is 37.1. ASSESSMENT AND PLAN: The patient clinically is improved. He is getting care for his behavioral disorder, schizophrenia, and depression. We will follow up. Sanjay Bonilla MD
== END 2018-11-22 13:20 | disposition home or self-care (01) | DRG 885 ==
LOC: ED 02:11 → ERH 10:55 → PSYC 13:10 → ERH 13:46 → PSYC 13:47
PROVIDERS: ADMIT Psychiatry & Neurology Psychiatry; ATTEND Psychiatry & Neurology Psychiatry
DX: F25.0 Schizoaffective disorder, bipolar type (principal); F03.91 Unspecified dementia, unspecified severity, with behavioral disturbance; F43.12 Post-traumatic stress disorder, chronic; F12.10 Cannabis abuse, uncomplicated; J44.9 Chronic obstructive pulmonary disease, unspecified; F17.200 Nicotine dependence, unspecified, uncomplicated; G40.909 Epilepsy, unspecified, not intractable, without status epilepticus; G62.9 Polyneuropathy, unspecified; K21.9 Gastro-esophageal reflux disease without esophagitis; K64.9 Unspecified hemorrhoids; G47.00 Insomnia, unspecified; Z79.51 Long term (current) use of inhaled steroids; Z91.14 Patient's other noncompliance with medication regimen; Z86.19 Personal history of other infectious and parasitic diseases; Z23 Encounter for immunization